=== PATIENT | female | born 1930 | race Caucasian/White ===

== ENCOUNTER 2016-07-26 09:15 | Inpatient (IN) | payer MEDICARE, OTHER ==
[~2016-07-26 09:15] MED LIST: Lactated Ringers 1,000 ML IV SCH; Lidocaine 1%/Sod Bicarbonate in NS 8.4% 1 ML Syringe IV PRN; Morphine 8 MG, EPINEPHrine 0.3 MG, Cefuroxime 750 MG, Ketorolac 30 MG, Sodium Chloride ... ONE; Sodium Chloride 0.9% 10 ML Syringe FLUSH PRN
[2016-12-27] MEDS ORDERED: Sodium Chloride 0.9% 10 ML Syringe FLUSH PRN (00:01)
[2016-12-27] MEDS ORDERED: Lidocaine 1%/Sod Bicarbonate in NS 8.4% 1 ML Syringe IV PRN (00:01)
[2016-12-27] MEDS: Lactated Ringers 1,000 ML IV SCH ×3 (10:01→21:11)
[2016-12-27] MEDS: Bupivacaine 0.25% 30 ML SDV ONE ×2 (10:30→13:46)
[2016-12-27] MEDS: ceFAZolin 1 GM Vial ONE ×2 (10:30→13:40)
[2016-12-27] MEDS: Iodine/Sodium Iodide 2% Tincture 30 ML Bottle ONE ×2 (10:31→13:38)
[2016-12-27] MEDS ORDERED: Propofol 200 MG/20 ML SDV ONE ×2 (10:35→14:04)
[2016-12-27] MEDS ORDERED: Lidocaine 1% 2 ML ONE ×2 (10:37→12:47)
--- NOTE | 2016-12-27 10:48 | PCM.PREANE ---
Preanesthetic Assessment - Procedure Proposed Procedure: Left total knee arthroplasty - Anesthesia/Transfusion/Family Hx Anesthesia History: Prior Anesthesia Without Reaction Type of Anesthesia Reaction: Excessive Nausea/Vomiting (with general anesthetic ) Family History of Anesthesia Reaction: No Transfusion History: No Prior Transfusion(s) Type of Transfusion Reactions: Reports: Unknown Intubation History: Unknown Additional History: Patient has a history of lumbar fusion but had a spinal for her right TKA in 2014 without any complications. - Review of Systems General: No Symptoms Pulmonary: No Symptoms Cardiovascular: Other (HTN, Hyperlipidemia, ) Gastrointestinal: No symptoms Neurological: No Symptoms Other: Reports: None - Physical Assessment NPO Status Date: 12/26/16 NPO Status Time: 23:45 O2 Sat by Pulse Oximetry: 93 Respiratory Rate: 16 Vital Signs: Last Vital Signs Temp 36.4 C 12/27/16 09:50 Pulse 59 L 12/27/16 09:50 Resp 16 12/27/16 09:50 BP 150/45 H 12/27/16 09:50 Pulse Ox 93 L 12/27/16 09:50 Height: 1.57 m Weight: 75.296 kg ASA Class: 3 Mental Status: Alert & Oriented x3 Airway Class: Mallampati = 2 Dentition: Reports: Dentures (upper) Thyro-Mental Finger Breadths: 3 Mouth Opening Finger Breadths: 3 ROM/Head Extension: Full Lungs: Clear to auscultation, Normal respiratory effort Cardiovascular: Regular Rate, Regular Rhythm - Lab Values: Laboratory Last Values MRSA (PCR) Negative 12/17/16 10:51 - Allergies Allergies/Adverse Reactions: Allergies Allergy/AdvReac Type Severity Reaction Status Date / Time sulfamethoxazole Allergy Rash Verified 12/27/16 10:30 [From Bactrim] trimethoprim [From Bactrim] Allergy Rash Verified 12/27/16 10:30 - Blood Blood Available: No Product(s) Available: None - Anesthesia Plan Pre-Op Medication Ordered: None Beta Darion: Atenolol Med Last Dose Date: 12/27/16 Med Last Dose Time: 07:00 - Acknowledgements Anesthesia Type Planned: Spinal (with duramorph) Pt an Appropriate Candidate for the Planned Anesthesia: Yes Alternatives and Risks of Anesthesia Discussed w Pt/Guardian: Yes Pt/Guardian Understands and Agrees with Anesthesia Plan: Yes PreAnesthesia Questionnaire HEENT History: Reports: None Other HEENT History: wears eyeglasses Cardiovascular History: Reports: Bypass (CABG), CAD, High Cholesterol, Hypertension, NE Respiratory History: Reports: None Gastrointestinal History: Reports: GERD, Irritable Bowel Syndrome, PUD Other Gastrointestinal History: perforated ulcer 2010 Genitourinary History: Reports: Retention, Urinary, Urinary Incontinence, UTI, Recurrent Other Genitourinary History: Urinary urgency, nocturia [employer] History: Reports: Musculoskeletal History: Reports: Arthritis, Osteoarthritis Other Musculoskeletal History: Right shoulder pain Neurological History: Reports: CVA Psychiatric History: Reports: None Endocrine/Metabolic History: Reports: Hypothyroidism Hematologic History: Reports: Anemia, Iron Deficiency Immunologic History: Reports: None Oncologic (Cancer) History: Reports: Other (See Below) Other Oncologic History: Skin neoplasm Dermatologic History: Other Dermatologic History: Skin neoplasm - Infectious Disease History Infectious Disease History: Reports: MRSA - Past Surgical History HEENT Surgical History: Reports: Cataract Surgery, Tonsillectomy Cardiovascular Surgical History: Reports: Carotid Endarterectomy, Coronary Artery Bypass Respiratory Surgical History: Reports: None GI Surgical History: Reports: None Female Surgical History: Reports: None Endocrine Surgical History: Reports: None Neurological Surgical History: Reports: None Musculoskeletal Surgical History: Reports: Other (See Below) Other Musculoskeletal Surgeries/Procedures:: Low back surgery Oncologic Surgical History: Reports: None Dermatological Surgical History: Reports: None - SUBSTANCE USE Smoking Status *Q: Never Smoker Second Hand Smoke Exposure: No Recreational Drug Use History: No - HOME MEDS Home Medications: Home Meds Atenolol 25 mg PO DAILY 03/08/14 [History] Calcium Carbonate [Calcium] 1,200 mg PO TID 03/08/14 [History] Glucosamine/Chondroitin Sulf A [Glucosamine Chondroitin Cap] 1 each PO DAILY [History] Irbesartan [Avapro] 150 mg PO DAILY 03/08/14 [History] Levothyroxine Sodium [Synthroid] 112 mcg PO DAILY 03/08/14 [History] Simvastatin [Zocor] 20 mg PO DAILY 03/08/14 [History] amLODIPine [Norvasc] 5 mg PO DAILY 03/08/14 [History] Pantoprazole [ProTONIX] 40 mg PO DAILY 04/04/15 [History] Aspirin [Ecotrin] 81 mg PO DAILY 04/07/15 [History] Ferrous Sulfate [Iron] 325 mg PO DAILY #90 tablet 05/06/15 [Rx] D-Mannose [Mannose] 1 tab PO DAILY 12/24/16 [History] Ibuprofen [Advil] 400 mg PO Q6H PRN 12/24/16 [History] Multivit-Min/FA/Lycopene/Lut [Centrum Silver Tablet] 1 each PO DAILY 12/24/16 [ History] - CURRENT (IN HOUSE) MEDS Current Meds: Current Medications Morphine Sulfate 8 mg/Epinephrine HCl 0.3 mg/Cefuroxime Sodium 750 mg/Ketorolac Tromethamine 30 mg/Sodium Chloride 27.9 ml 0 mg .XX ONETIME ONE Stop: 12/27/16 11:31 Lactated Ringer's (Ringers, Lactated) 1,000 mls @ 125 mls/hr IV ASDIRECTED TIFF Stop: 12/27/16 23:00 Last Admin: 12/27/16 10:01 Dose: 125 mls/hr Vancomycin HCl 1 gm/ Sodium (Chloride) 250 mls @ 250 mls/hr IV ONETIME ONE Stop: 12/27/16 10:59 Last Admin: 12/27/16 10:05 Dose: 250 mls/hr Lidocaine/Sodium Bicarbonate (Buffered Lidocaine 1% In Ns 8.4%) 0.25 ml IV ONETIME PRN PRN Reason: Prior to IV Start Stop: 12/27/16 18:00 Last Admin: 12/27/16 10:01 Dose: 0.25 ml Sodium Chloride (Saline Flush) 10 ml FLUSH ASDIRECTED PRN PRN Reason: Keep Vein Open Stop: 12/27/16 18:00 Discontinued Medications Bupivacaine HCl (Marcaine 0.25%) Confirm Administered Dose 30 ml .ROUTE .STK- MED ONE Stop: 12/27/16 09:53 Last Admin: 12/27/16 10:30 Dose: 30 ml Cefazolin Sodium (Ancef) Confirm Administered Dose 2 gm .ROUTE .STK-MED ONE Stop: 12/27/16 09:53 Last Admin: 12/27/16 10:30 Dose: 2 gm Morphine Sulfate 8 mg/Epinephrine HCl 0.3 mg/Cefuroxime Sodium 750 mg/Ketorolac Tromethamine 30 mg/Sodium Chloride 27.9 ml 0 mg .XX ONETIME ONE Stop: 07/26/16 07:01 Lidocaine HCl (Xylocaine-Mpf 1%) Confirm Administered Dose 2 mls @ as directed .ROUTE .[employer]-MED ONE Stop: 12/27/16 10:38 Iodine (Iodine 2% Mild Tincture) Confirm Administered Dose 30 ml .ROUTE .[employer]- MED ONE Stop: 12/27/16 09:53 Last Admin: 12/27/16 10:31 Dose: 18 ml Propofol (Diprivan 20 Ml) Confirm Administered Dose 200 mg .ROUTE .[employer] app ONE Stop: 12/27/16 10:36 Tranexamic Acid (Cyklokapron) Confirm Administered Dose 1,000 mg .ROUTE .[employer]- MED ONE Stop: 12/27/16 09:53 Last Admin: 12/27/16 10:32 Dose: 1,000 mg
[2016-12-27] MEDS ORDERED: fentaNYL 100 MCG/2 ML SDV ONE (12:58)
[2016-12-27] MEDS ORDERED: Lactated Ringers 1,000 ML ONE (13:07)
[2016-12-27] MEDS ORDERED: Ketamine 500 mg/10 ML MDV ONE (13:13)
[2016-12-27] MEDS: Morphine 8 MG, EPINEPHrine 0.3 MG, Cefuroxime 750 MG, Ketorolac 30 MG, Sodium Chloride ... ONE ×10 (13:19→13:45)
--- NOTE | 2016-12-27 14:43 | PCM.POSTAN ---
POST ANESTHESIA ASSESSMENT - MENTAL STATUS Mental Status: alert - VITAL SIGNS Pulse Rate: 43 SaO2: 95 Resp Rate: 12 Blood Pressure: 131/44 Temperature: 96.8 C - RESPIRATORY Respiratory Status: respiratory rate WNL, airway patent, O2 saturation stable - CARDIOVASCULAR CV Status: pulse rate WNL, blood pressure stable - GASTROINTESTINAL GI Status: no symptoms - PAIN Pain Score: 10 (RN treating pain ongoing ) - POST OP HYDRATION Hydration Status: adequate & stable
[2016-12-27] MEDS ORDERED: Ketorolac 30 MG/ML SDV IVPUSH SCH (14:45)
[2016-12-27] MEDS: fentaNYL 100 MCG/2 ML SDV IVPUSH PRN ×3 (14:53→15:27)
[2016-12-27] MEDS ORDERED: fentaNYL 250 MCG/5 ML SDV ONE (15:07)
[2016-12-27] MEDS ORDERED: Morphine 2 MG/ML Syringe IVPUSH PRN (15:13)
[2016-12-27] MEDS ORDERED: Bisacodyl 5 MG Tab PO PRN (15:13)
[2016-12-27] MEDS ORDERED: Naloxone 0.4 MG/ML SDV IVPUSH PRN (15:13)
[2016-12-27] MEDS ORDERED: Ondansetron 4 MG/2 ML SDV IVPUSH PRN (15:13)
[2016-12-27] MEDS ORDERED: Magnesium Hydroxide 400 MG/5 ML Susp 30 ML Cup PO PRN (15:13)
[2016-12-27] MEDS ORDERED: Acetaminophen/oxyCODONE 325-5 MG Tab PO PRN (15:13)
[2016-12-27] MEDS ORDERED: Sennosides 8.6 MG Tab PO PRN (15:13)
[2016-12-27] MEDS: HYDROmorphone 0.5 MG/0.5 ML Syringe IVPUSH PRN ×2 (15:47→16:14)
[2016-12-27] MEDS ORDERED: cloNIDine 1,000 MCG/10 ML SDV ONE (16:09)
--- NOTE | 2016-12-27 19:07 | PCM.CONSN ---
- General Info Date of Service: 12/27/16 Subjective Update: 86 year old female s/p left total knee arthroplasty, c/o nausea. Required fentanyl 150 mcg post op and multiple pain medications. Hospitalist service has been asked to help manage medical needs. Functional Status: Reports: pain controlled (required over 150 mcg fentanyl and toradol for control), urinating - Review of Systems General: Reports: No Symptoms HEENT: Reports: no symptoms Pulmonary: Reports: no symptoms Cardiovascular: Reports: No Symptoms Gastrointestinal: Reports: Nausea Genitourinary: Reports: no symptoms Musculoskeletal: Reports: no symptoms Skin: Reports: no symptoms Neurological: Reports: No Symptoms Psychiatric: Reports: no symptoms - Patient Data Vitals - most recent: Last Vital Signs Temp 37.0 C 12/27/16 18:30 Pulse 60 12/27/16 18:30 Resp 16 12/27/16 18:30 BP 141/55 H 12/27/16 18:30 Pulse Ox 95 12/27/16 18:30 Weight - most recent: 75.296 kg I&O - last 24 hours: Intake & Output 12/27/16 12/27/16 12/27/16 06:59 14:59 22:59 Intake Total 740 Output Total 200 250 Balance -200 490 Med Orders - Current: Current Medications Hydrocodone Bitart/Acetaminophen ([place] 325-5 Mg) 1 - 2 tab PO Q4H PRN PRN Reason: Pain Amlodipine Besylate (Norvasc) 5 mg PO DAILY TIFF Atenolol (Tenormin) 25 mg PO DAILY TIFF Bisacodyl (Dulcolax) 5 mg PO DAILY PRN PRN Reason: Constipation Calcium Carbonate/Glycine (Tums) 1,000 mg PO TID [facility] Docusate Sodium (Colace) 100 mg PO BID TIFF Famotidine (Pepcid) 20 mg PO Q12HR [facility] Ferrous Sulfate (Ferrous Sulfate) 325 mg PO DAILY [facility] Lactated Ringer's (Ringers, Lactated) 1,000 mls @ 125 mls/hr IV ASDIRECTED [facility] Stop: 12/27/16 23:00 Last Admin: 12/27/16 16:51 Dose: 125 mls/hr Cefazolin Sodium/Dextrose 2 gm (/ Premix) 50 mls @ 100 mls/hr IV Q8H [facility] Stop: 12/28/16 10:29 Vancomycin HCl 1 gm/ Sodium (Chloride) 250 mls @ 250 mls/hr IV Q12H [facility] Stop: 12/28/16 22:59 Levothyroxine Sodium (Levothyroxine) 112 mcg PO ACBRK [facility] Losartan Potassium (Cozaar) 50 mg PO DAILY [facility] Magnesium Hydroxide (Milk Of Magnesia) 30 ml PO BID PRN PRN Reason: Constipation Morphine Sulfate (Morphine) 2 mg IVPUSH Q2H PRN PRN Reason: Breakthrough Pain Multivitamins (Thera) 1 each PO WITHBREAKFAST [facility] Non-Formulary Medication (Chondroitin/Glucosamine) 1 each PO DAILY [facility] Non-Formulary Medication (D-Mannose [Mannose]) 1 tab PO DAILY [facility] Ondansetron HCl (Zofran) 4 mg IVPUSH Q6H PRN PRN Reason: Nausea/Vomiting Pantoprazole Sodium (Protonix) 40 mg PO DAILY@0700 [facility] Rivaroxaban (Xarelto) 10 mg PO DAILY [facility] Senna (Senna) 8.6 mg PO BID PRN PRN Reason: Constipation Simvastatin (Zocor) 20 mg PO DAILY [facility] Vancomycin HCl (Pharmacy To Dose - Vancomycin) 1 dose .XX ASDIRECTED [facility] Stop: 12/29/16 15:16 Discontinued Medications Bupivacaine HCl (Marcaine 0.25%) Confirm Administered Dose 30 ml .ROUTE .STK- MED ONE Stop: 12/27/16 09:53 Last Admin: 12/27/16 13:46 Dose: 30 ml Cefazolin Sodium (Ancef) Confirm Administered Dose 2 gm .ROUTE .STK-MED ONE Stop: 12/27/16 09:53 Last Admin: 12/27/16 13:40 Dose: 2 gm Clonidine HCl (Duraclon) Confirm Administered Dose 1,000 mcg .ROUTE .STK-MED ONE Stop: 12/27/16 16:10 Morphine Sulfate 8 mg/Epinephrine HCl 0.3 mg/Cefuroxime Sodium 750 mg/Ketorolac Tromethamine 30 mg/Sodium Chloride 27.9 ml 0 mg .XX ONETIME ONE Stop: 07/26/16 07:01 Morphine Sulfate 8 mg/Epinephrine HCl 0.3 mg/Cefuroxime Sodium 750 mg/Ketorolac Tromethamine 30 mg/Sodium Chloride 27.9 ml 0 mg .XX ONETIME ONE Stop: 12/27/16 11:31 Last Admin: 12/27/16 13:45 Dose: 788.3 mg Fentanyl (Sublimaze) Confirm Administered Dose 100 mcg .ROUTE .STK-MED ONE Stop: 12/27/16 12:59 Fentanyl (Sublimaze) 50 mcg IVPUSH Q5M PRN PRN Reason: Pain Stop: 12/27/16 18:00 Last Admin: 12/27/16 15:27 Dose: 50 mcg Fentanyl (Sublimaze) Confirm Administered Dose 250 mcg .ROUTE .STK-MED ONE Stop: 12/27/16 15:08 Hydromorphone HCl (Dilaudid) 0.5 mg IVPUSH Q15M PRN PRN Reason: severe pain Stop: 12/27/16 15:56 Last Admin: 12/27/16 16:14 Dose: 0.5 mg Vancomycin HCl 1 gm/ Sodium (Chloride) 250 mls @ 250 mls/hr IV ONETIME ONE Stop: 12/27/16 10:59 Last Admin: 12/27/16 10:05 Dose: 250 mls/hr Lidocaine HCl (Xylocaine-Mpf 1%) Confirm Administered Dose 2 mls @ as directed .ROUTE .STK-MED ONE Stop: 12/27/16 10:38 Lidocaine HCl (Xylocaine-Mpf 1%) Confirm Administered Dose 2 mls @ as directed .ROUTE .STK-MED ONE Stop: 12/27/16 12:48 Lactated Ringer's (Ringers, Lactated) Confirm Administered Dose 1,000 mls @ as directed .ROUTE .STK-MED ONE Stop: 12/27/16 13:08 Acetaminophen (Ofirmev) 100 mls @ 400 mls/hr IV NOW ONE Stop: 12/27/16 15:08 Last Admin: 12/27/16 15:04 Dose: 400 mls/hr Iodine (Iodine 2% Mild Tincture) Confirm Administered Dose 30 ml .ROUTE .STK- MED ONE Stop: 12/27/16 09:53 Last Admin: 12/27/16 13:38 Dose: 18 ml Ketamine HCl (Ketalar) Confirm Administered Dose 500 mg .ROUTE .STK-MED ONE Stop: 12/27/16 13:14 Ketorolac Tromethamine (Toradol) 15 mg IVPUSH ONETIME TIFF Stop: 12/27/16 18:00 Last Admin: 12/27/16 15:35 Dose: 15 mg Lidocaine/Sodium Bicarbonate (Buffered Lidocaine 1% In Ns 8.4%) 0.25 ml IV ONETIME PRN PRN Reason: Prior to IV Start Stop: 12/27/16 18:00 Last Admin: 12/27/16 10:01 Dose: 0.25 ml Naloxone HCl (Narcan) 0.1 mg IVPUSH Q5M PRN PRN Reason: Oversedation Stop: 12/27/16 15:29 Oxycodone/Acetaminophen (Percocet 325-5 Mg) 1 - 2 tab PO Q4H PRN PRN Reason: Pain Propofol (Diprivan 20 Ml) Confirm Administered Dose 200 mg .ROUTE .STK-MED ONE Stop: 12/27/16 10:36 Propofol (Diprivan 20 Ml) Confirm Administered Dose 200 mg .ROUTE .STK-MED ONE Stop: 12/27/16 14:05 Sodium Chloride (Saline Flush) 10 ml FLUSH ASDIRECTED PRN PRN Reason: Keep Vein Open Stop: 12/27/16 18:00 Tranexamic Acid (Cyklokapron) Confirm Administered Dose 1,000 mg .ROUTE .STK- MED ONE Stop: 12/27/16 09:53 Last Admin: 12/27/16 13:48 Dose: 1,000 mg - Exam Quality Assessment: supplemental oxygen, DVT prophylaxis General: sedated Neck: supple, trachea midline Lungs: Normal respiratory effort Abdomen: bowel sounds present, soft, no tenderness, no distension (Female) Exam: Deferred Back Exam: Normal Inspection Extremities: normal pulses Skin: warm Wound/Incisions: dressing dry and intact Neurological: no new focal deficit Consult PN Assessment/Plan POD#: 0 Procedures: Procedures AGENT NOS ASSAY W/OPTIC (08/05/16) ASSAY OF AMYLASE (05/04/15) ASSAY OF CREATININE (02/27/14) ASSAY OF FERRITIN (12/07/16) ASSAY OF IRON (12/07/16) ASSAY OF LIPASE (08/05/16) ASSAY OF PREALBUMIN (07/08/16) ASSAY OF TRANSFERRIN (12/07/16) ASSAY OF TROPONIN QUANT (08/05/16) ASSAY THYROID STIM HORMONE (12/07/16) BLOOD CULTURE FOR BACTERIA (05/04/15) C-REACTIVE PROTEIN (08/05/16) CHEST X-RAY 1 VIEW FRONTAL (03/20/15) CHEST X-RAY 2VW FRONTAL&LATL (07/08/16) COMP SCREEN MAMMOGRAM ADD-ON (08/08/15) COMPLETE CBC AUTOMATED (12/07/16) COMPLETE CBC W/AUTO DIFF WBC (08/05/16) COMPREHEN METABOLIC PANEL (12/07/16) CULTURE AEROBIC IDENTIFY (05/29/14) ELECTROCARDIOGRAM TRACING (08/05/16) EMERGENCY DEPT VISIT (08/05/16) GAIT TRAINING THERAPY (05/04/15) HELICOBACTER PYLORI ANTIBODY (08/05/16) HYDRATE IV INFUSION ADD-ON (08/05/16) INJ FORAMEN EPIDURAL L/S (03/13/14) LEUKOCYTE ASSESSMENT FECAL (08/05/16) MEASURE BLOOD OXYGEN LEVEL (04/07/15) MEASURE BLOOD OXYGEN LEVEL (04/07/15) MEASURE BLOOD OXYGEN LEVEL (04/07/15) METABOLIC PANEL TOTAL CA (04/07/15) MICROBE SUSCEPTIBLE EDWARD (07/08/16) MR-STAPH DNA AMP PROBE (04/07/15) MRI LUMBAR SPINE W/O DYE (02/27/14) MYCOPLASMA ANTIBODY (06/05/14) OCCULT BLD FECES 1-3 TESTS (08/05/16) OCCULT BLOOD FECES (08/05/16) OFFICE/OUTPATIENT VISIT EST (12/05/15) OT EVALUATION (05/04/15) PT EVALUATION (05/04/15) ROUTINE VENIPUNCTURE (12/07/16) SELF CARE MNGMENT TRAINING (04/07/15) STOOL CULTR AEROBIC BACT EA (08/05/16) THER/PROPH/DIAG INJ IV PUSH (08/05/16) THER/PROPH/DIAG IV INF INIT (05/04/15) THERAPEUTIC ACTIVITIES (05/04/15) THERAPEUTIC EXERCISES (05/04/15) THROMBOPLASTIN TIME PARTIAL (04/03/15) TX/PRO/DX INJ NEW DRUG ADDON (05/04/15) URINALYSIS AUTO W/O SCOPE (07/24/15) URINALYSIS AUTO W/SCOPE (12/07/16) URINE BACTERIA CULTURE (07/08/16) URINE CULTURE/COLONY COUNT (12/07/16) US EXAM ABDO BACK WALL COMP (05/04/15) VITAMIN B-12 (05/04/15) VITAMIN D 25 HYDROXY (07/08/16) X-RAY EXAM L-2 SPINE 4/>VWS (08/20/15) X-RAY EXAM OF ABDOMEN (08/05/16) X-RAY EXAM OF FINGER(S) (03/08/16) X-RAY EXAM OF KNEE 1 OR 2 (04/07/15) X-RAY EXAM OF SHOULDER (03/08/16) (1) GERD (gastroesophageal reflux disease) SNOMED Code(s): 564789595 Code(s): K21.9 - GASTRO-ESOPHAGEAL REFLUX DISEASE WITHOUT ESOPHAGITIS Current Visit: Yes (2) Narcotic dependence SNOMED Code(s): 96259042, 15641630 Code(s): F11.20 - OPIOID DEPENDENCE, UNCOMPLICATED Current Visit: Yes (3) History of IBS SNOMED Code(s): 55001915058654 Code(s): Z87.19 - PERSONAL HISTORY OF OTHER DISEASES OF THE DIGESTIVE SYSTEM Current Visit: Yes (4) CVA (cerebral vascular accident) SNOMED Code(s): 560900732 Code(s): I63.9 - CEREBRAL INFARCTION, UNSPECIFIED Current Visit: Yes (5) Myocardial infarction SNOMED Code(s): 62863184 Code(s): I21.3 - ST ELEVATION (STEMI) MYOCARDIAL INFARCTION OF [facility] SITE Current Visit: Yes (6) Anemia SNOMED Code(s): 201214882 Code(s): D64.9 - ANEMIA, UNSPECIFIED Current Visit: No Qualifiers: Anemia type: unspecified type Qualified Code(s): D64.9 - Anemia, unspecified (7) UTI (urinary tract infection) SNOMED Code(s): 59153484 Code(s): N39.0 - URINARY TRACT INFECTION, SITE NOT SPECIFIED Current Visit : No Qualifiers: Urinary tract infection type: acute cystitis Hematuria presence: with hematuria Qualified Code(s): N30.01 - Acute cystitis with hematuria Problem List Initiated/Reviewed/Updated: Yes Plan: Impression: POD 0 left total knee arthroplasty Left LE osetoarthritis Chronic CAD/MIHTN HLD GERD/PUD IBS CVA Plan: Daily labs Home meds Antiemetic Pain mgt DVT/GI prophylaxis SW/PT/OT
[2016-12-27] MEDS ORDERED: hydrALAZINE 20 MG/ML SDV IVPUSH PRN (20:17)
[2016-12-27] MEDS ORDERED: Lactated Ringers 250 ML IV ONE (20:29)
[2016-12-27] MEDS ORDERED: Lactated Ringers 1,000 ML IV SCH (20:30)
[2016-12-27] MEDS: ceFAZolin 2 GM in Premix Bag 1 BAG IV SCH (20:49)
[2016-12-27] MEDS: Famotidine 20 MG Tab PO SCH (20:50)
[2016-12-27] MEDS: Calcium Carbonate 500 MG Tab.Chew PO SCH (20:50)
[2016-12-27] MEDS: Docusate Sodium 100 MG Cap PO SCH (20:51)
[2016-12-27] MEDS: Metoclopramide 10 MG/2 ML SDV IVPUSH SCH (20:52)
[2016-12-27] MEDS ORDERED: amLODIPine 5 MG Tab PO ONE (21:00)
[2016-12-27] MEDS ORDERED: Metoclopramide 10 MG/2 ML SDV IVPUSH SCH (21:00)
[2016-12-27] MEDS ORDERED: Scopolamine 1.5 MG Transdermal Patch TRDERM PRN (21:00)
[2016-12-27] MEDS: Acetaminophen/HYDROcodone 325-5 MG Tab PO PRN (22:02)
[2016-12-28] MEDS: ceFAZolin 2 GM in Premix Bag 1 BAG IV SCH ×2 (02:17→09:11)
[2016-12-28] MEDS: Acetaminophen/HYDROcodone 325-5 MG Tab PO PRN ×3 (02:18→11:32)
[2016-12-28] MEDS: Metoclopramide 10 MG/2 ML SDV IVPUSH SCH ×4 (02:19→21:36)
[2016-12-28] MEDS: Pantoprazole 40 MG Tab.CR PO SCH (06:45)
[2016-12-28] MEDS: Levothyroxine 112 MCG Tab PO SCH (06:45)
[2016-12-28] MEDS: Multivitamins,Therapeutic Tab PO SCH (06:45)
[2016-12-28] MEDS: Lactated Ringers 1,000 ML IV SCH ×2 (07:34→21:46)
[2016-12-28] MEDS ORDERED: Rivaroxaban 10 MG Tab PO SCH (09:00)
--- NOTE | 2016-12-28 09:07 | PCM.CONSN ---
- General Info Date of Service: 12/28/16 Admission Dx/Problem (Free Text): POD #1 Lt TKA Doing well, pain under good control, no nausea. Working with PT/OT. Plans for rehab stay at [facility]. Functional Status: Reports: pain controlled, tolerating diet, ambulating, urinating (armendariz cath removed overnight. ). Denies: new symptoms - Review of Systems General: Reports: No Symptoms HEENT: Reports: no symptoms Pulmonary: Reports: no symptoms Cardiovascular: Reports: No Symptoms Gastrointestinal: Reports: No symptoms Genitourinary: Reports: no symptoms Musculoskeletal: Reports: leg pain Skin: Reports: no symptoms Neurological: Reports: No Symptoms Psychiatric: Reports: no symptoms - Patient Data Vitals - most recent: Last Vital Signs Temp 98.1 F 12/28/16 07:39 Pulse 53 L 12/28/16 07:39 Resp 20 12/28/16 07:39 BP 146/46 H 12/28/16 07:39 Pulse Ox 96 12/28/16 07:39 Weight - most recent: 172 lb 4.8 oz I&O - last 24 hours: Intake & Output 12/27/16 12/28/16 12/28/16 22:59 06:59 14:59 Intake Total 1740 1769 Output Total 250 1000 Balance 1490 769 Lab Results last 24 hrs: Laboratory Results - last 24 hr 12/28/16 12/28/16 Range/Units 06:40 06:40 WBC 11.98 H (3.98-10.04) K/mm3 RBC 3.15 L (3.98-5.22) M/mm3 Hgb 9.9 L (11.2-15.7) gm/L Hct 30.0 L (34.1-44.9) % MCV 95.2 H (79.4-94.8) fl MCH 31.4 (25.6-32.2) pg MCHC 33.0 (32.2-35.5) g/dl RDW Std Deviation 41.9 (36.4-46.3) fL Plt Count 257 (182-369) K/mm3 MPV 10.8 (9.4-12.3) fl Neut % (Auto) 79.7 H (34.0-71.1) % Lymph % (Auto) 10.6 L (19.3-51.7) % Ritchie % (Auto) 9.1 (4.7-12.5) % Eos % (Auto) 0.3 L (0.7-5.8) Baso % (Auto) 0.1 (0.1-1.2) % Neut # (Auto) 9.55 H (1.56-6.13) K/mm3 Lymph # (Auto) 1.27 (1.18-3.74) K/mm3 Ritchie # (Auto) 1.09 H (0.24-0.36) K/mm3 Eos # (Auto) 0.04 (0.04-0.36) K/mm3 Baso # (Auto) 0.01 (0.01-0.08) K/mm3 Sodium 136 (136-145) mEq/L Potassium 3.6 (3.5-5.1) mEq/L Chloride 102 (98-107) mEq/L Carbon Dioxide 23 (21-32) mEq/L Anion Gap 14.6 (5-15) BUN 15 (7-18) mg/dL Creatinine 1.3 H (0.55-1.02) mg/dL Est Cr Clr Drug Dosing 24.57 mL/min Estimated GFR (MDRD) 39 (>60) mL/min BUN/Creatinine Ratio 11.5 L (14-18) Glucose 120 H (83-115) mg/dL Calcium 8.3 L (8.5-10.1) mg/dL Total Bilirubin 0.6 (0.2-1.0) mg/dL AST 22 (15-37) U/L ALT 23 (14-59) U/L Alkaline Phosphatase 46 (46-116) U/L Total Protein 6.2 L (6.4-8.2) g/dl Albumin 3.2 L (3.4-5.0) g/dl Globulin 3.0 gm/dL Albumin/Globulin Ratio 1.1 (1-2) Med Orders - Current: Current Medications Hydrocodone Bitart/Acetaminophen ([place] 325-5 Mg) 1 - 2 tab PO Q4H PRN PRN Reason: Pain Last Admin: 12/28/16 07:32 Dose: 2 tab Amlodipine Besylate (Norvasc) 5 mg PO DAILY TIFF Atenolol (Tenormin) 25 mg PO DAILY TIFF Bisacodyl (Dulcolax) 5 mg PO DAILY PRN PRN Reason: Constipation Calcium Carbonate/Glycine (Tums) 1,000 mg PO TID COUNT INCLUDES THE [facility] Last Admin: 12/27/16 20:50 Dose: 1,000 mg Docusate Sodium (Colace) 100 mg PO BID COUNT INCLUDES THE [facility] Last Admin: 12/27/16 20:51 Dose: 100 mg Enoxaparin Sodium (Lovenox) 30 mg SUBCUT DAILY COUNT INCLUDES THE [facility] Famotidine (Pepcid) 20 mg PO Q12HR COUNT INCLUDES THE [facility] Last Admin: 12/27/16 20:50 Dose: 20 mg Ferrous Sulfate (Ferrous Sulfate) 325 mg PO DAILY COUNT INCLUDES THE [facility] Hydralazine HCl (Apresoline) 20 mg IVPUSH Q6H PRN PRN Reason: Hypertension Cefazolin Sodium/Dextrose 2 gm (/ Premix) 50 mls @ 100 mls/hr IV Q8H COUNT INCLUDES THE [facility] Stop: 12/28/16 10:29 Last Admin: 12/28/16 02:17 Dose: 100 mls/hr Vancomycin HCl 1 gm/ Sodium (Chloride) 250 mls @ 250 mls/hr IV Q12H COUNT INCLUDES THE [facility] Stop: 12/28/16 22:59 Last Admin: 12/27/16 22:07 Dose: 250 mls/hr Lactated Ringer's (Ringers, Lactated) 1,000 mls @ 70 mls/hr IV ASDIRECTED COUNT INCLUDES THE [facility] Last Admin: 12/28/16 07:34 Dose: 70 mls/hr Levothyroxine Sodium (Levothyroxine) 112 mcg PO ACBRK COUNT INCLUDES THE [facility] Last Admin: 12/28/16 06:45 Dose: 112 mcg Losartan Potassium (Cozaar) 50 mg PO DAILY COUNT INCLUDES THE [facility] Magnesium Hydroxide (Milk Of Magnesia) 30 ml PO BID PRN PRN Reason: Constipation Metoclopramide HCl (Reglan) 5 mg IVPUSH Q6H COUNT INCLUDES THE [facility] Last Admin: 12/28/16 02:19 Dose: 5 mg Miscellaneous Information (Remove Patch) 1 ea TRDERM Q72H PRN PRN Reason: removal Morphine Sulfate (Morphine) 2 mg IVPUSH Q2H PRN PRN Reason: Breakthrough Pain Multivitamins (Thera) 1 each PO WITHBREAKFAST COUNT INCLUDES THE [facility] Last Admin: 12/28/16 06:45 Dose: 1 each Ondansetron HCl (Zofran) 4 mg IVPUSH Q6H PRN PRN Reason: Nausea/Vomiting Pantoprazole Sodium (Protonix) 40 mg PO DAILY@0700 COUNT INCLUDES THE [facility] Last Admin: 12/28/16 06:45 Dose: 40 mg Chondroitin/ (Glucosamine Tabs) 0 each PO DAILY COUNT INCLUDES THE [facility] D-Mannose [Mannose] (Tablets) 0 each PO DAILY COUNT INCLUDES THE [facility] Scopolamine (Transderm-Scop) 1.5 mg TRDERM Q72H PRN PRN Reason: Nausea Last Admin: 12/27/16 20:53 Dose: 1.5 mg Senna (Senna) 8.6 mg PO BID PRN PRN Reason: Constipation Simvastatin (Zocor) 20 mg PO DAILY COUNT INCLUDES THE [facility] Vancomycin HCl (Pharmacy To Dose - Vancomycin) 1 dose .XX ASDIRECTED COUNT INCLUDES THE [facility] Stop: 12/29/16 15:16 Discontinued Medications Amlodipine Besylate (Norvasc) 5 mg PO ONETIME ONE Stop: 12/27/16 21:01 Last Admin: 12/27/16 21:03 Dose: 5 mg Bupivacaine HCl (Marcaine 0.25%) Confirm Administered Dose 30 ml .ROUTE .STK- MED ONE Stop: 12/27/16 09:53 Last Admin: 12/27/16 13:46 Dose: 30 ml Cefazolin Sodium (Ancef) Confirm Administered Dose 2 gm .ROUTE .STK-MED ONE Stop: 12/27/16 09:53 Last Admin: 12/27/16 13:40 Dose: 2 gm Clonidine HCl (Duraclon) Confirm Administered Dose 1,000 mcg .ROUTE .STK-MED ONE Stop: 12/27/16 16:10 Morphine Sulfate 8 mg/Epinephrine HCl 0.3 mg/Cefuroxime Sodium 750 mg/Ketorolac Tromethamine 30 mg/Sodium Chloride 27.9 ml 0 mg .XX ONETIME ONE Stop: 07/26/16 07:01 Morphine Sulfate 8 mg/Epinephrine HCl 0.3 mg/Cefuroxime Sodium 750 mg/Ketorolac Tromethamine 30 mg/Sodium Chloride 27.9 ml 0 mg .XX ONETIME ONE Stop: 12/27/16 11:31 Last Admin: 12/27/16 13:45 Dose: 788.3 mg Fentanyl (Sublimaze) Confirm Administered Dose 100 mcg .ROUTE .STK-MED ONE Stop: 12/27/16 12:59 Fentanyl (Sublimaze) 50 mcg IVPUSH Q5M PRN PRN Reason: Pain Stop: 12/27/16 18:00 Last Admin: 12/27/16 15:27 Dose: 50 mcg Fentanyl (Sublimaze) Confirm Administered Dose 250 mcg .ROUTE .STK-MED ONE Stop: 12/27/16 15:08 Hydromorphone HCl (Dilaudid) 0.5 mg IVPUSH Q15M PRN PRN Reason: severe pain Stop: 12/27/16 15:56 Last Admin: 12/27/16 16:14 Dose: 0.5 mg Lactated Ringer's (Ringers, Lactated) 1,000 mls @ 125 mls/hr IV ASDIRECTED TIFF Stop: 12/27/16 23:00 Last Admin: 12/27/16 16:51 Dose: 125 mls/hr Vancomycin HCl 1 gm/ Sodium (Chloride) 250 mls @ 250 mls/hr IV ONETIME ONE Stop: 12/27/16 10:59 Last Admin: 12/27/16 10:05 Dose: 250 mls/hr Lidocaine HCl (Xylocaine-Mpf 1%) Confirm Administered Dose 2 mls @ as directed .ROUTE .STK-MED ONE Stop: 12/27/16 10:38 Lidocaine HCl (Xylocaine-Mpf 1%) Confirm Administered Dose 2 mls @ as directed .ROUTE .STK-MED ONE Stop: 12/27/16 12:48 Lactated Ringer's (Ringers, Lactated) Confirm Administered Dose 1,000 mls @ as directed .ROUTE .STK-MED ONE Stop: 12/27/16 13:08 Acetaminophen (Ofirmev) 100 mls @ 400 mls/hr IV NOW ONE Stop: 12/27/16 15:08 Last Admin: 12/27/16 15:04 Dose: 400 mls/hr Lactated Ringer's (Ringers, Lactated) 250 mls @ 999 mls/hr IV ONETIME ONE Stop: 12/27/16 20:44 Last Admin: 12/27/16 20:49 Dose: 999 mls/hr Iodine (Iodine 2% Mild Tincture) Confirm Administered Dose 30 ml .ROUTE .STK- MED ONE Stop: 12/27/16 09:53 Last Admin: 12/27/16 13:38 Dose: 18 ml Ketamine HCl (Ketalar) Confirm Administered Dose 500 mg .ROUTE .STK-MED ONE Stop: 12/27/16 13:14 Ketorolac Tromethamine (Toradol) 15 mg IVPUSH ONETIME TIFF Stop: 12/27/16 18:00 Last Admin: 12/27/16 15:35 Dose: 15 mg Lidocaine/Sodium Bicarbonate (Buffered Lidocaine 1% In Ns 8.4%) 0.25 ml IV ONETIME PRN PRN Reason: Prior to IV Start Stop: 12/27/16 18:00 Last Admin: 12/27/16 10:01 Dose: 0.25 ml Metoclopramide HCl (Reglan) 10 mg IVPUSH Q6H TIFF Naloxone HCl (Narcan) 0.1 mg IVPUSH Q5M PRN PRN Reason: Oversedation Stop: 12/27/16 15:29 Oxycodone/Acetaminophen (Percocet 325-5 Mg) 1 - 2 tab PO Q4H PRN PRN Reason: Pain Propofol (Diprivan 20 Ml) Confirm Administered Dose 200 mg .ROUTE .STK-MED ONE Stop: 12/27/16 10:36 Propofol (Diprivan 20 Ml) Confirm Administered Dose 200 mg .ROUTE .STK-MED ONE Stop: 12/27/16 14:05 Rivaroxaban (Xarelto) 10 mg PO DAILY COUNT INCLUDES THE [facility] Sodium Chloride (Saline Flush) 10 ml FLUSH ASDIRECTED PRN PRN Reason: Keep Vein Open Stop: 12/27/16 18:00 Terazosin HCl (Hytrin) 2 mg PO ONETIME ONE Stop: 12/27/16 20:58 Last Admin: 12/27/16 21:59 Dose: Not Given Tranexamic Acid (Cyklokapron) Confirm Administered Dose 1,000 mg .ROUTE .STK- MED ONE Stop: 12/27/16 09:53 Last Admin: 12/27/16 13:48 Dose: 1,000 mg - Exam Quality Assessment: DVT prophylaxis General: alert, oriented, cooperative, no acute distress HEENT: Pupils equal, Pupils reactive, EOMI, Mucous membr. moist/pink Neck: supple Lungs: Clear to auscultation, Normal respiratory effort, Decreased breath sounds (bases bilat) Cardiovascular: Regular Rate, Regular Rhythm Abdomen: bowel sounds present, soft, no tenderness, no distension (Female) Exam: Deferred Extremities: no edema, other (teds and scd's bilat) Peripheral Pulses: 1+: Dorsalis Pedis (L), Dorsalis Pedis (R) Wound/Incisions: dressing dry and intact Neurological: no new focal deficit Psy/Mental Status: alert, normal affect, normal mood Consult PN Assessment/Plan POD#: 1 Procedures: Procedures AGENT NOS ASSAY W/OPTIC (08/05/16) ASSAY OF AMYLASE (05/04/15) ASSAY OF CREATININE (02/27/14) ASSAY OF FERRITIN (12/07/16) ASSAY OF IRON (12/07/16) ASSAY OF LIPASE (08/05/16) ASSAY OF PREALBUMIN (07/08/16) ASSAY OF TRANSFERRIN (12/07/16) ASSAY OF TROPONIN QUANT (08/05/16) ASSAY THYROID STIM HORMONE (12/07/16) BLOOD CULTURE FOR BACTERIA (05/04/15) C-REACTIVE PROTEIN (08/05/16) CHEST X-RAY 1 VIEW FRONTAL (03/20/15) CHEST X-RAY 2VW FRONTAL&LATL (07/08/16) COMP SCREEN MAMMOGRAM ADD-ON (08/08/15) COMPLETE CBC AUTOMATED (12/07/16) COMPLETE CBC W/AUTO DIFF WBC (08/05/16) COMPREHEN METABOLIC PANEL (12/07/16) CULTURE AEROBIC IDENTIFY (05/29/14) ELECTROCARDIOGRAM TRACING (08/05/16) EMERGENCY DEPT VISIT (08/05/16) GAIT TRAINING THERAPY (05/04/15) HELICOBACTER PYLORI ANTIBODY (08/05/16) HYDRATE IV INFUSION ADD-ON (08/05/16) INJ FORAMEN EPIDURAL L/S (03/13/14) LEUKOCYTE ASSESSMENT FECAL (08/05/16) MEASURE BLOOD OXYGEN LEVEL (04/07/15) MEASURE BLOOD OXYGEN LEVEL (04/07/15) MEASURE BLOOD OXYGEN LEVEL (04/07/15) METABOLIC PANEL TOTAL CA (04/07/15) MICROBE SUSCEPTIBLE EDWARD (12/07/16) MR-STAPH DNA AMP PROBE (04/07/15) MRI LUMBAR SPINE W/O DYE (02/27/14) MYCOPLASMA ANTIBODY (06/05/14) OCCULT BLD FECES 1-3 TESTS (08/05/16) OCCULT BLOOD FECES (08/05/16) OFFICE/OUTPATIENT VISIT EST (12/07/16) OT EVALUATION (05/04/15) PT EVALUATION (05/04/15) ROUTINE VENIPUNCTURE (12/07/16) SELF CARE MNGMENT TRAINING (04/07/15) STOOL CULTR AEROBIC BACT EA (08/05/16) THER/PROPH/DIAG INJ IV PUSH (08/05/16) THER/PROPH/DIAG IV INF INIT (05/04/15) THERAPEUTIC ACTIVITIES (05/04/15) THERAPEUTIC EXERCISES (05/04/15) THROMBOPLASTIN TIME PARTIAL (04/03/15) TX/PRO/DX INJ NEW DRUG ADDON (05/04/15) URINALYSIS AUTO W/O SCOPE (07/24/15) URINALYSIS AUTO W/SCOPE (12/07/16) URINE BACTERIA CULTURE (12/07/16) URINE CULTURE/COLONY COUNT (12/07/16) US EXAM ABDO BACK WALL COMP (05/04/15) VITAMIN B-12 (05/04/15) VITAMIN D 25 HYDROXY (07/08/16) X-RAY EXAM L-2 SPINE 4/>VWS (08/20/15) X-RAY EXAM OF ABDOMEN (08/05/16) X-RAY EXAM OF FINGER(S) (03/08/16) X-RAY EXAM OF KNEE 1 OR 2 (04/07/15) X-RAY EXAM OF SHOULDER (03/08/16) (1) S/P total knee arthroplasty SNOMED Code(s): 1636020833127, 854748049, 6319452311936 Code(s): Z96.659 - PRESENCE OF UNSPECIFIED ARTIFICIAL KNEE JOINT Priority: High Current Visit: Yes Qualifiers: Laterality: left Qualified Code(s): Z96.652 - Presence of left artificial knee joint (2) Osteoarthritis SNOMED Code(s): 179919937 Code(s): M19.90 - UNSPECIFIED OSTEOARTHRITIS, UNSPECIFIED SITE Current Visit: Yes Qualifiers: Osteoarthritis location: knee Osteoarthritis type: primary Laterality: left Qualified Code(s): M17.12 - Unilateral primary osteoarthritis, left knee (3) Anemia SNOMED Code(s): 241354472 Code(s): D64.9 - ANEMIA, UNSPECIFIED Priority: Medium Current Visit: Yes Qualifiers: Anemia type: unspecified type Qualified Code(s): D64.9 - Anemia, unspecified (4) GERD (gastroesophageal reflux disease) SNOMED Code(s): 829643319 Code(s): K21.9 - GASTRO-ESOPHAGEAL REFLUX DISEASE WITHOUT ESOPHAGITIS Priority: Medium Current Visit: No Qualifiers: Esophagitis presence: esophagitis presence not specified Qualified Code(s) : K21.9 - Gastro-esophageal reflux disease without esophagitis (5) History of IBS SNOMED Code(s): 53515915298826 Code(s): Z87.19 - PERSONAL HISTORY OF OTHER DISEASES OF THE DIGESTIVE SYSTEM Priority: Medium Current Visit: No (6) Hx of myocardial infarction SNOMED Code(s): 087495667 Code(s): I25.2 - OLD MYOCARDIAL INFARCTION Priority: Medium Current Visit : No (7) History of CVA (cerebrovascular accident) SNOMED Code(s): 284609542 Code(s): Z86.73 - PRSNL HX OF TIA (TIA), AND CEREB INFRC W/O RESID DEFICITS Priority: Medium Current Visit: No Problem List Initiated/Reviewed/Updated: Yes My Orders last 24 hours: My Active Orders 12/29/16 05:11 BASIC METABOLIC PANEL,BMP [CHEM] AM CBC WITH AUTO DIFF [HEME] AM Plan: I/P: POD #1; Lt TKA with Dr. Ingram -Pain management and DVT prophylax per Orthopedics -PT/OT -IS/RT -Preop hgb was 11.7; today 9.9- cont to follow with daily labs -Doing well thus far Chronic conditions: GERD HTN HLD OAB Hypothyroidism Hx of chronic UTI- recently treated with abx Hx of CVA Hx of AMI Hx of IBS Other: CM/SW for assist with DC planning- plans DC to [facility] for rehab stay; likely tomorrow. GI prophylax Patient is Full Code status.
--- NOTE | 2016-12-28 09:08 | CR ---
Left knee: AP and lateral views the left knee were obtained. Comparison: No previous left knee exam. Knee prosthesis is seen. Components are aligned. Underlying bony structures are intact. Soft tissue air is noted from the surgical procedure. Impression: 1. Satisfactory radiographic appearance of recently placed left knee prosthesis. Diagnostic code #2
[2016-12-28] MEDS: Docusate Sodium 100 MG Cap PO SCH ×2 (09:12→21:36)
[2016-12-28] MEDS: Calcium Carbonate 500 MG Tab.Chew PO SCH ×3 (09:13→21:36)
[2016-12-28] MEDS: Losartan 25 MG Tab PO SCH (09:13)
[2016-12-28] MEDS: Simvastatin 20 MG Tab PO SCH (09:13)
[2016-12-28] MEDS: Atenolol 25 MG Tab PO SCH (09:14)
[2016-12-28] MEDS: Ferrous Sulfate 325 MG Tab PO SCH (09:15)
[2016-12-28] MEDS: amLODIPine 5 MG Tab PO SCH (09:15)
[2016-12-28] MEDS: Famotidine 20 MG Tab PO SCH (09:15)
[2016-12-28] MEDS: Enoxaparin 30 MG/0.3 ML Syringe SUBCUT SCH (09:16)
[2016-12-28] MEDS: D MANNOSE PO SCH (09:16)
[2016-12-28] MEDS: CHONDROITIN PO SCH (09:16)
[2016-12-28] MEDS: GLUCOSAMINE PO SCH (09:16)
[2016-12-28] MEDS ORDERED: Albuterol 0.042% 1.25 MG/3 ML Neb Soln NEB PRN (09:57)
[2016-12-28] MEDS: Acetaminophen/oxyCODONE 325-5 MG Tab PO PRN ×2 (15:51→21:36)
--- NOTE | 2016-12-28 17:48 | PCM.SURGPN ---
- General Info Date of Service: 12/28/16 POD#: 1 Functional Status: Reports: pain controlled, tolerating diet, ambulating, urinating, incentive spirometry - Review of Systems General: Denies: Fever, Chills Musculoskeletal: Reports: other (The pt reports better pain control today.) - Patient Data Vitals - most recent: Last Vital Signs Temp 97.5 F 12/28/16 15:33 Pulse 52 L 12/28/16 15:33 Resp 16 12/28/16 15:33 BP 135/40 L 12/28/16 15:33 Pulse Ox 98 12/28/16 15:33 Weight - most recent: 172 lb 4.8 oz I&O - last 24 hours: Intake & Output 12/28/16 12/28/16 12/28/16 06:59 14:59 22:59 Intake Total 1769 100 750 Output Total 1000 Balance 769 100 750 Lab Results last 24 hrs: Laboratory Results - last 24 hr 12/28/16 12/28/16 Range/Units 06:40 06:40 WBC 11.98 H (3.98-10.04) K/mm3 RBC 3.15 L (3.98-5.22) M/mm3 Hgb 9.9 L (11.2-15.7) gm/L Hct 30.0 L (34.1-44.9) % MCV 95.2 H (79.4-94.8) fl MCH 31.4 (25.6-32.2) pg MCHC 33.0 (32.2-35.5) g/dl RDW Std Deviation 41.9 (36.4-46.3) fL Plt Count 257 (182-369) K/mm3 MPV 10.8 (9.4-12.3) fl Neut % (Auto) 79.7 H (34.0-71.1) % Lymph % (Auto) 10.6 L (19.3-51.7) % Donley % (Auto) 9.1 (4.7-12.5) % Eos % (Auto) 0.3 L (0.7-5.8) Baso % (Auto) 0.1 (0.1-1.2) % Neut # (Auto) 9.55 H (1.56-6.13) K/mm3 Lymph # (Auto) 1.27 (1.18-3.74) K/mm3 Donley # (Auto) 1.09 H (0.24-0.36) K/mm3 Eos # (Auto) 0.04 (0.04-0.36) K/mm3 Baso # (Auto) 0.01 (0.01-0.08) K/mm3 Sodium 136 (136-145) mEq/L Potassium 3.6 (3.5-5.1) mEq/L Chloride 102 (98-107) mEq/L Carbon Dioxide 23 (21-32) mEq/L Anion Gap 14.6 (5-15) BUN 15 (7-18) mg/dL Creatinine 1.3 H (0.55-1.02) mg/dL Est Cr Clr Drug Dosing 24.57 mL/min Estimated GFR (MDRD) 39 (>60) mL/min BUN/Creatinine Ratio 11.5 L (14-18) Glucose 120 H (83-115) mg/dL Calcium 8.3 L (8.5-10.1) mg/dL Total Bilirubin 0.6 (0.2-1.0) mg/dL AST 22 (15-37) U/L ALT 23 (14-59) U/L Alkaline Phosphatase 46 (46-116) U/L Total Protein 6.2 L (6.4-8.2) g/dl Albumin 3.2 L (3.4-5.0) g/dl Globulin 3.0 gm/dL Albumin/Globulin Ratio 1.1 (1-2) Med Orders - Current: Current Medications Albuterol (Proventil Neb Soln) 1.25 mg NEB Q6HRRT PRN PRN Reason: Shortness of Breath Amlodipine Besylate (Norvasc) 5 mg PO DAILY [facility] Last Admin: 12/28/16 09:15 Dose: 5 mg Atenolol (Tenormin) 25 mg PO DAILY [facility] Last Admin: 12/28/16 09:14 Dose: Not Given Bisacodyl (Dulcolax) 5 mg PO DAILY PRN PRN Reason: Constipation Calcium Carbonate/Glycine (Tums) 1,000 mg PO TID [facility] Last Admin: 12/28/16 15:50 Dose: 1,000 mg Docusate Sodium (Colace) 100 mg PO BID [facility] Last Admin: 12/28/16 09:12 Dose: 100 mg Enoxaparin Sodium (Lovenox) 30 mg SUBCUT DAILY [facility] Last Admin: 12/28/16 09:16 Dose: 30 mg Ferrous Sulfate (Ferrous Sulfate) 325 mg PO DAILY [facility] Last Admin: 12/28/16 09:15 Dose: 325 mg Hydralazine HCl (Apresoline) 20 mg IVPUSH Q6H PRN PRN Reason: Hypertension Vancomycin HCl 1 gm/ Sodium (Chloride) 250 mls @ 250 mls/hr IV Q12H [facility] Stop: 12/28/16 22:59 Last Admin: 12/28/16 09:10 Dose: 250 mls/hr Lactated Ringer's (Ringers, Lactated) 1,000 mls @ 70 mls/hr IV ASDIRECTED [facility] Last Admin: 12/28/16 07:34 Dose: 70 mls/hr Levothyroxine Sodium (Levothyroxine) 112 mcg PO ACBRK [facility] Last Admin: 12/28/16 06:45 Dose: 112 mcg Losartan Potassium (Cozaar) 50 mg PO DAILY [facility] Last Admin: 12/28/16 09:13 Dose: 50 mg Magnesium Hydroxide (Milk Of Magnesia) 30 ml PO BID PRN PRN Reason: Constipation Metoclopramide HCl (Reglan) 5 mg IVPUSH Q6H [facility] Last Admin: 12/28/16 15:50 Dose: 5 mg Miscellaneous Information (Remove Patch) 1 ea TRDERM Q72H PRN PRN Reason: removal Morphine Sulfate (Morphine) 2 mg IVPUSH Q2H PRN PRN Reason: Breakthrough Pain Multivitamins (Thera) 1 each PO WITHBREAKFAST [facility] Last Admin: 12/28/16 06:45 Dose: 1 each Ondansetron HCl (Zofran) 4 mg IVPUSH Q6H PRN PRN Reason: Nausea/Vomiting Oxycodone/Acetaminophen (Percocet 325-5 Mg) 1 - 2 tab PO Q4H PRN PRN Reason: Pain Last Admin: 12/28/16 15:51 Dose: 2 tab Pantoprazole Sodium (Protonix) 40 mg PO DAILY@0700 [facility] Last Admin: 12/28/16 06:45 Dose: 40 mg Chondroitin/ (Glucosamine Tabs) 0 each PO DAILY [facility] Last Admin: 12/28/16 09:16 Dose: Not Given D-Mannose [Mannose] (Tablets) 0 each PO DAILY [facility] Last Admin: 12/28/16 09:16 Dose: Not Given Scopolamine (Transderm-Scop) 1.5 mg TRDERM Q72H PRN PRN Reason: Nausea Last Admin: 12/27/16 20:53 Dose: 1.5 mg Senna (Senna) 8.6 mg PO BID PRN PRN Reason: Constipation Simvastatin (Zocor) 20 mg PO DAILY [facility] Last Admin: 12/28/16 09:13 Dose: 20 mg Vancomycin HCl (Pharmacy To Dose - Vancomycin) 1 dose .XX ASDIRECTED [facility] Stop: 12/29/16 15:16 Discontinued Medications Hydrocodone Bitart/Acetaminophen ([place] 325-5 Mg) 1 - 2 tab PO Q4H PRN PRN Reason: Pain Last Admin: 12/28/16 11:32 Dose: 2 tab Amlodipine Besylate (Norvasc) 5 mg PO ONETIME ONE Stop: 12/27/16 21:01 Last Admin: 12/27/16 21:03 Dose: 5 mg Bupivacaine HCl (Marcaine 0.25%) Confirm Administered Dose 30 ml .ROUTE .STK- MED ONE Stop: 12/27/16 09:53 Last Admin: 12/27/16 13:46 Dose: 30 ml Cefazolin Sodium (Ancef) Confirm Administered Dose 2 gm .ROUTE .STK-MED ONE Stop: 12/27/16 09:53 Last Admin: 12/27/16 13:40 Dose: 2 gm Clonidine HCl (Duraclon) Confirm Administered Dose 1,000 mcg .ROUTE .STK-MED ONE Stop: 12/27/16 16:10 Morphine Sulfate 8 mg/Epinephrine HCl 0.3 mg/Cefuroxime Sodium 750 mg/Ketorolac Tromethamine 30 mg/Sodium Chloride 27.9 ml 0 mg .XX ONETIME ONE Stop: 07/26/16 07:01 Morphine Sulfate 8 mg/Epinephrine HCl 0.3 mg/Cefuroxime Sodium 750 mg/Ketorolac Tromethamine 30 mg/Sodium Chloride 27.9 ml 0 mg .XX ONETIME ONE Stop: 12/27/16 11:31 Last Admin: 12/27/16 13:45 Dose: 788.3 mg Famotidine (Pepcid) 20 mg PO Q12HR [facility] Last Admin: 12/28/16 09:15 Dose: 20 mg Fentanyl (Sublimaze) Confirm Administered Dose 100 mcg .ROUTE .STK-MED ONE Stop: 12/27/16 12:59 Fentanyl (Sublimaze) 50 mcg IVPUSH Q5M PRN PRN Reason: Pain Stop: 12/27/16 18:00 Last Admin: 12/27/16 15:27 Dose: 50 mcg Fentanyl (Sublimaze) Confirm Administered Dose 250 mcg .ROUTE .STK-MED ONE Stop: 12/27/16 15:08 Hydromorphone HCl (Dilaudid) 0.5 mg IVPUSH Q15M PRN PRN Reason: severe pain Stop: 12/27/16 15:56 Last Admin: 12/27/16 16:14 Dose: 0.5 mg Lactated Ringer's (Ringers, Lactated) 1,000 mls @ 125 mls/hr IV ASDIRECTED [facility] Stop: 12/27/16 23:00 Last Admin: 12/27/16 16:51 Dose: 125 mls/hr Vancomycin HCl 1 gm/ Sodium (Chloride) 250 mls @ 250 mls/hr IV ONETIME ONE Stop: 12/27/16 10:59 Last Admin: 12/27/16 10:05 Dose: 250 mls/hr Lidocaine HCl (Xylocaine-Mpf 1%) Confirm Administered Dose 2 mls @ as directed .ROUTE .STK-MED ONE Stop: 12/27/16 10:38 Lidocaine HCl (Xylocaine-Mpf 1%) Confirm Administered Dose 2 mls @ as directed .ROUTE .STK-MED ONE Stop: 12/27/16 12:48 Lactated Ringer's (Ringers, Lactated) Confirm Administered Dose 1,000 mls @ as directed .ROUTE .STK-MED ONE Stop: 12/27/16 13:08 Acetaminophen (Ofirmev) 100 mls @ 400 mls/hr IV NOW ONE Stop: 12/27/16 15:08 Last Admin: 12/27/16 15:04 Dose: 400 mls/hr Cefazolin Sodium/Dextrose 2 gm (/ Premix) 50 mls @ 100 mls/hr IV Q8H TIFF Stop: 12/28/16 10:29 Last Admin: 12/28/16 09:11 Dose: 100 mls/hr Lactated Ringer's (Ringers, Lactated) 250 mls @ 999 mls/hr IV ONETIME ONE Stop: 12/27/16 20:44 Last Admin: 12/27/16 20:49 Dose: 999 mls/hr Iodine (Iodine 2% Mild Tincture) Confirm Administered Dose 30 ml .ROUTE .STK- MED ONE Stop: 12/27/16 09:53 Last Admin: 12/27/16 13:38 Dose: 18 ml Ketamine HCl (Ketalar) Confirm Administered Dose 500 mg .ROUTE .STK-MED ONE Stop: 12/27/16 13:14 Ketorolac Tromethamine (Toradol) 15 mg IVPUSH ONETIME TIFF Stop: 12/27/16 18:00 Last Admin: 12/27/16 15:35 Dose: 15 mg Lidocaine/Sodium Bicarbonate (Buffered Lidocaine 1% In Ns 8.4%) 0.25 ml IV ONETIME PRN PRN Reason: Prior to IV Start Stop: 12/27/16 18:00 Last Admin: 12/27/16 10:01 Dose: 0.25 ml Metoclopramide HCl (Reglan) 10 mg IVPUSH Q6H TIFF Naloxone HCl (Narcan) 0.1 mg IVPUSH Q5M PRN PRN Reason: Oversedation Stop: 12/27/16 15:29 Oxycodone/Acetaminophen (Percocet 325-5 Mg) 1 - 2 tab PO Q4H PRN PRN Reason: Pain Propofol (Diprivan 20 Ml) Confirm Administered Dose 200 mg .ROUTE .STK-MED ONE Stop: 12/27/16 10:36 Propofol (Diprivan 20 Ml) Confirm Administered Dose 200 mg .ROUTE .STK-MED ONE Stop: 12/27/16 14:05 Rivaroxaban (Xarelto) 10 mg PO DAILY TIFF Sodium Chloride (Saline Flush) 10 ml FLUSH ASDIRECTED PRN PRN Reason: Keep Vein Open Stop: 12/27/16 18:00 Terazosin HCl (Hytrin) 2 mg PO ONETIME ONE Stop: 12/27/16 20:58 Last Admin: 12/27/16 21:59 Dose: Not Given Tranexamic Acid (Cyklokapron) Confirm Administered Dose 1,000 mg .ROUTE .STK- MED ONE Stop: 12/27/16 09:53 Last Admin: 12/27/16 13:48 Dose: 1,000 mg - Exam Wound/Incisions: dressing dry and intact Quality Assessment: supplemental oxygen General: alert, cooperative, no acute distress Lungs: Normal respiratory effort Extremities: normal pulses, no calf tenderness, other (NVS intact for BLE. Molly's negative for BLE.) - Problem List Review Problem List Initiated/Reviewed/Updated: Yes - My Orders Last 24 Hours: Active Orders 24 hr Category Date Time Status RT Aerosol Therapy [RC] ASDIRECTED Care 12/28/16 09:57 Active Regular Diet [DIET] Diet 12/27/16 Dinner Active BASIC METABOLIC PANEL,BMP [CHEM] AM Lab 12/29/16 05:11 Ordered CBC WITH AUTO DIFF [HEME] AM Lab 12/29/16 05:11 Ordered Acetaminophen/oxyCODONE [Percocet 325-5 MG] Med 12/28/16 15:00 Active 1 - 2 tab PO Q4H PRN Albuterol [Proventil Neb Soln] Med 12/28/16 09:57 Active 1.25 mg NEB Q6HRRT PRN Atenolol [Tenormin] Med 12/28/16 09:00 Active 25 mg PO DAILY Calcium Carbonate [Tums] Med 12/27/16 21:00 Active 1,000 mg PO TID Docusate Sodium [Colace] Med 12/27/16 21:00 Active 100 mg PO BID Enoxaparin [Lovenox] Med 12/28/16 09:00 Active 30 mg SUBCUT DAILY Ferrous Sulfate Med 12/28/16 09:00 Active 325 mg PO DAILY Lactated Ringers [Ringers, Lactated] 1,000 ml Med 12/27/16 21:15 Active IV ASDIRECTED Levothyroxine Med 12/28/16 06:00 Active 112 mcg PO ACBRK Losartan [Cozaar] Med 12/28/16 09:00 Active 50 mg PO DAILY Metoclopramide [Reglan] Med 12/27/16 21:00 Active 5 mg IVPUSH Q6H Multivitamins,Therapeutic [Thera] Med 12/28/16 07:00 Active 1 each PO WITHBREAKFAST Pantoprazole [ProTONIX] Med 12/28/16 07:00 Active 40 mg PO DAILY@0700 Patient's Own Medication [Ptom] Med 12/28/16 09:00 Active 0 each PO DAILY Patient's Own Medication [Ptom] Med 12/28/16 09:00 Active 0 each PO DAILY Remove Patch Med 12/27/16 20:38 Active 1 ea TRDERM Q72H PRN Scopolamine [Transderm-Scop] Med 12/27/16 21:00 Active 1.5 mg TRDERM Q72H PRN Simvastatin [Zocor] Med 12/28/16 09:00 Active 20 mg PO DAILY Vancomycin [Vancocin] 1 gm Med 12/27/16 22:00 Active Sodium Chloride 0.9% [Normal Saline] 250 ml IV Q12H amLODIPine [Norvasc] Med 12/28/16 09:00 Active 5 mg PO DAILY hydrALAZINE [Apresoline] Med 12/27/16 20:17 Active 20 mg IVPUSH Q6H PRN Medication Orders Albuterol (Proventil Neb Soln) 1.25 mg NEB Q6HRRT PRN PRN Reason: Shortness of Breath Amlodipine Besylate (Norvasc) 5 mg PO DAILY [facility] Last Admin: 12/28/16 09:15 Dose: 5 mg Atenolol (Tenormin) 25 mg PO DAILY [facility] Last Admin: 12/28/16 09:14 Dose: Bisacodyl (Dulcolax) 5 mg PO DAILY PRN PRN Reason: Constipation Calcium Carbonate/Glycine (Tums) 1,000 mg PO TID [facility] Last Admin: 12/28/16 15:50 Dose: 1,000 mg Admin: 12/28/16 09:13 Dose: 1,000 mg Admin: 12/27/16 20:50 Dose: 1,000 mg Docusate Sodium (Colace) 100 mg PO BID [facility] Last Admin: 12/28/16 09:12 Dose: 100 mg Admin: 12/27/16 20:51 Dose: 100 mg Enoxaparin Sodium (Lovenox) 30 mg SUBCUT DAILY [facility] Last Admin: 12/28/16 09:16 Dose: 30 mg Ferrous Sulfate (Ferrous Sulfate) 325 mg PO DAILY [facility] Last Admin: 12/28/16 09:15 Dose: 325 mg Hydralazine HCl (Apresoline) 20 mg IVPUSH Q6H PRN PRN Reason: Hypertension Vancomycin HCl 1 gm/ Sodium (Chloride) 250 mls @ 250 mls/hr IV Q12H [facility] Stop: 12/28/16 22:59 Last Admin: 12/28/16 09:10 Dose: 250 mls/hr Infusion: 12/27/16 23:07 Dose: 250 mls/hr Admin: 12/27/16 22:07 Dose: 250 mls/hr Lactated Ringer's (Ringers, Lactated) 1,000 mls @ 70 mls/hr IV ASDIRECTED [facility] Last Admin: 12/28/16 07:34 Dose: 70 mls/hr Infusion: 12/28/16 07:34 Dose: 70 mls/hr Admin: 12/27/16 21:11 Dose: 70 mls/hr Levothyroxine Sodium (Levothyroxine) 112 mcg PO ACBRK [facility] Last Admin: 12/28/16 06:45 Dose: 112 mcg Losartan Potassium (Cozaar) 50 mg PO DAILY [facility] Last Admin: 12/28/16 09:13 Dose: 50 mg Magnesium Hydroxide (Milk Of Magnesia) 30 ml PO BID PRN PRN Reason: Constipation Metoclopramide HCl (Reglan) 5 mg IVPUSH Q6H [facility] Last Admin: 12/28/16 15:50 Dose: 5 mg Admin: 12/28/16 09:16 Dose: 5 mg Admin: 12/28/16 02:19 Dose: 5 mg Admin: 12/27/16 20:52 Dose: 5 mg Miscellaneous Information (Remove Patch) 1 ea TRDERM Q72H PRN PRN Reason: removal Morphine Sulfate (Morphine) 2 mg IVPUSH Q2H PRN PRN Reason: Breakthrough Pain Multivitamins (Thera) 1 each PO WITHBREAKFAST [facility] Last Admin: 12/28/16 06:45 Dose: 1 each Ondansetron HCl (Zofran) 4 mg IVPUSH Q6H PRN PRN Reason: Nausea/Vomiting Oxycodone/Acetaminophen (Percocet 325-5 Mg) 1 - 2 tab PO Q4H PRN PRN Reason: Pain Last Admin: 12/28/16 15:51 Dose: 2 tab Pantoprazole Sodium (Protonix) 40 mg PO DAILY@0700 [facility] Last Admin: 12/28/16 06:45 Dose: 40 mg Chondroitin/ (Glucosamine Tabs) 0 each PO DAILY [facility] Last Admin: 12/28/16 09:16 Dose: D-Mannose [Mannose] (Tablets) 0 each PO DAILY [facility] Last Admin: 12/28/16 09:16 Dose: Scopolamine (Transderm-Scop) 1.5 mg TRDERM Q72H PRN PRN Reason: Nausea Last Admin: 12/27/16 20:53 Dose: 1.5 mg Senna (Senna) 8.6 mg PO BID PRN PRN Reason: Constipation Simvastatin (Zocor) 20 mg PO DAILY [facility] Last Admin: 12/28/16 09:13 Dose: 20 mg Vancomycin HCl (Pharmacy To Dose - Vancomycin) 1 dose .XX ASDIRECTED [facility] Stop: 12/29/16 15:16 - Assessment Assessment (Free Text/Narrative):: POD#1 - left knee TKA - Plan Plan (Free Text/Narrative):: 1. The pt will remain in Hospital while awaiting NH placement and for continued medical monitoring and therapy. 2. 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 3. Continue with P.T. and O.T. 4. d/c [place] and trial Percocet at this time. 5. Hgb 9.9 today. The pt's case was discussed with Dr. Ingram.
[2016-12-29] MEDS: Lactated Ringers 1,000 ML IV SCH (00:18)
[2016-12-29] MEDS: Acetaminophen/oxyCODONE 325-5 MG Tab PO PRN (03:15)
[2016-12-29] MEDS: Metoclopramide 10 MG/2 ML SDV IVPUSH SCH (03:19)
[2016-12-29] MEDS: Multivitamins,Therapeutic Tab PO SCH (06:37)
[2016-12-29] MEDS: Pantoprazole 40 MG Tab.CR PO SCH (06:37)
[2016-12-29] MEDS: Levothyroxine 112 MCG Tab PO SCH (06:37)
[2016-12-29] MEDS ORDERED: Metoclopramide 10 MG/2 ML SDV IVPUSH PRN (06:59)
[2016-12-29] MEDS: Acetaminophen/HYDROcodone 325-5 MG Tab PO PRN ×2 (07:38→21:25)
--- NOTE | 2016-12-29 07:43 | PCM.SURGPN ---
- General Info Date of Service: 12/29/16 POD#: 2 Functional Status: Reports: pain controlled, tolerating diet, ambulating, urinating - Review of Systems General: Denies: Fever, Chills Musculoskeletal: Reports: other (The pt has been progressing with therapies.) - Patient Data Vitals - most recent: Last Vital Signs Temp 98.4 F 12/29/16 03:26 Pulse 69 12/29/16 03:27 Resp 16 12/29/16 03:26 BP 127/76 12/29/16 03:27 Pulse Ox 96 12/29/16 03:27 Weight - most recent: 176 lb 4.8 oz I&O - last 24 hours: Intake & Output 12/28/16 12/29/16 12/29/16 22:59 06:59 14:59 Intake Total 1250 1184 Output Total 675 Balance 1250 509 Lab Results last 24 hrs: Laboratory Results - last 24 hr 12/28/16 12/29/16 Range/Units 06:40 06:20 WBC 10.63 H (3.98-10.04) K/mm3 RBC 2.92 L (3.98-5.22) M/mm3 Hgb 9.0 L (11.2-15.7) gm/L Hct 27.7 L (34.1-44.9) % MCV 94.9 H (79.4-94.8) fl MCH 30.8 (25.6-32.2) pg MCHC 32.5 (32.2-35.5) g/dl RDW Std Deviation 41.7 (36.4-46.3) fL Plt Count 213 (182-369) K/mm3 MPV 11.2 (9.4-12.3) fl Neut % (Auto) 74.3 H (34.0-71.1) % Lymph % (Auto) 12.7 L (19.3-51.7) % Powell % (Auto) 11.9 (4.7-12.5) % Eos % (Auto) 0.7 (0.7-5.8) Baso % (Auto) 0.2 (0.1-1.2) % Neut # (Auto) 7.90 H (1.56-6.13) K/mm3 Lymph # (Auto) 1.35 (1.18-3.74) K/mm3 Powell # (Auto) 1.27 H (0.24-0.36) K/mm3 Eos # (Auto) 0.07 (0.04-0.36) K/mm3 Baso # (Auto) 0.02 (0.01-0.08) K/mm3 Sodium 136 (136-145) mEq/L Potassium 3.6 (3.5-5.1) mEq/L Chloride 102 (98-107) mEq/L Carbon Dioxide 23 (21-32) mEq/L Anion Gap 14.6 (5-15) BUN 15 (7-18) mg/dL Creatinine 1.3 H (0.55-1.02) mg/dL Est Cr Clr Drug Dosing 24.57 mL/min Estimated GFR (MDRD) 39 (>60) mL/min BUN/Creatinine Ratio 11.5 L (14-18) Glucose 120 H (83-115) mg/dL Calcium 8.3 L (8.5-10.1) mg/dL Total Bilirubin 0.6 (0.2-1.0) mg/dL AST 22 (15-37) U/L ALT 23 (14-59) U/L Alkaline Phosphatase 46 (46-116) U/L Total Protein 6.2 L (6.4-8.2) g/dl Albumin 3.2 L (3.4-5.0) g/dl Globulin 3.0 gm/dL Albumin/Globulin Ratio 1.1 (1-2) Med Orders - Current: Current Medications Hydrocodone Bitart/Acetaminophen ([place] 325-5 Mg) 1 - 2 tab PO Q4H PRN PRN Reason: Pain Last Admin: 12/29/16 07:38 Dose: 2 tab Albuterol (Proventil Neb Soln) 1.25 mg NEB Q6HRRT PRN PRN Reason: Shortness of Breath Amlodipine Besylate (Norvasc) 5 mg PO DAILY [facility] Last Admin: 12/28/16 09:15 Dose: 5 mg Atenolol (Tenormin) 25 mg PO DAILY [facility] Last Admin: 12/28/16 09:14 Dose: Not Given Bisacodyl (Dulcolax) 5 mg PO DAILY PRN PRN Reason: Constipation Calcium Carbonate/Glycine (Tums) 1,000 mg PO TID [facility] Last Admin: 12/28/16 21:36 Dose: 1,000 mg Docusate Sodium (Colace) 100 mg PO BID [facility] Last Admin: 12/28/16 21:36 Dose: 100 mg Enoxaparin Sodium (Lovenox) 30 mg SUBCUT DAILY [facility] Last Admin: 12/28/16 09:16 Dose: 30 mg Ferrous Sulfate (Ferrous Sulfate) 325 mg PO DAILY [facility] Last Admin: 12/28/16 09:15 Dose: 325 mg Hydralazine HCl (Apresoline) 20 mg IVPUSH Q6H PRN PRN Reason: Hypertension Levothyroxine Sodium (Levothyroxine) 112 mcg PO ACBRK [facility] Last Admin: 12/29/16 06:37 Dose: 112 mcg Losartan Potassium (Cozaar) 50 mg PO DAILY [facility] Last Admin: 12/28/16 09:13 Dose: 50 mg Magnesium Hydroxide (Milk Of Magnesia) 30 ml PO BID PRN PRN Reason: Constipation Metoclopramide HCl (Reglan) 5 mg IVPUSH Q6H PRN PRN Reason: Nausea/Vomiting Miscellaneous Information (Remove Patch) 1 ea TRDERM Q72H PRN PRN Reason: removal Morphine Sulfate (Morphine) 2 mg IVPUSH Q2H PRN PRN Reason: Breakthrough Pain Multivitamins (Thera) 1 each PO WITHBREAKFAST [facility] Last Admin: 12/29/16 06:37 Dose: 1 each Ondansetron HCl (Zofran) 4 mg IVPUSH Q6H PRN PRN Reason: Nausea/Vomiting Pantoprazole Sodium (Protonix) 40 mg PO DAILY@0700 [facility] Last Admin: 12/29/16 06:37 Dose: 40 mg Chondroitin/ (Glucosamine Tabs) 0 each PO DAILY [facility] Last Admin: 12/28/16 09:16 Dose: Not Given D-Mannose [Mannose] (Tablets) 0 each PO DAILY [facility] Last Admin: 12/28/16 09:16 Dose: Not Given Scopolamine (Transderm-Scop) 1.5 mg TRDERM Q72H PRN PRN Reason: Nausea Last Admin: 12/27/16 20:53 Dose: 1.5 mg Senna (Senna) 8.6 mg PO BID PRN PRN Reason: Constipation Simvastatin (Zocor) 20 mg PO DAILY [facility] Last Admin: 12/28/16 09:13 Dose: 20 mg Vancomycin HCl (Pharmacy To Dose - Vancomycin) 1 dose .XX ASDIRECTED [facility] Stop: 12/29/16 15:16 Discontinued Medications Hydrocodone Bitart/Acetaminophen ([place] 325-5 Mg) 1 - 2 tab PO Q4H PRN PRN Reason: Pain Last Admin: 12/28/16 11:32 Dose: 2 tab Amlodipine Besylate (Norvasc) 5 mg PO ONETIME ONE Stop: 12/27/16 21:01 Last Admin: 12/27/16 21:03 Dose: 5 mg Bupivacaine HCl (Marcaine 0.25%) Confirm Administered Dose 30 ml .ROUTE .STK- MED ONE Stop: 12/27/16 09:53 Last Admin: 12/27/16 13:46 Dose: 30 ml Cefazolin Sodium (Ancef) Confirm Administered Dose 2 gm .ROUTE .STK-MED ONE Stop: 12/27/16 09:53 Last Admin: 12/27/16 13:40 Dose: 2 gm Clonidine HCl (Duraclon) Confirm Administered Dose 1,000 mcg .ROUTE .STK-MED ONE Stop: 12/27/16 16:10 Morphine Sulfate 8 mg/Epinephrine HCl 0.3 mg/Cefuroxime Sodium 750 mg/Ketorolac Tromethamine 30 mg/Sodium Chloride 27.9 ml 0 mg .XX ONETIME ONE Stop: 07/26/16 07:01 Morphine Sulfate 8 mg/Epinephrine HCl 0.3 mg/Cefuroxime Sodium 750 mg/Ketorolac Tromethamine 30 mg/Sodium Chloride 27.9 ml 0 mg .XX ONETIME ONE Stop: 12/27/16 11:31 Last Admin: 12/27/16 13:45 Dose: 788.3 mg Famotidine (Pepcid) 20 mg PO Q12HR [facility] Last Admin: 12/28/16 09:15 Dose: 20 mg Fentanyl (Sublimaze) Confirm Administered Dose 100 mcg .ROUTE .STK-MED ONE Stop: 12/27/16 12:59 Fentanyl (Sublimaze) 50 mcg IVPUSH Q5M PRN PRN Reason: Pain Stop: 12/27/16 18:00 Last Admin: 12/27/16 15:27 Dose: 50 mcg Fentanyl (Sublimaze) Confirm Administered Dose 250 mcg .ROUTE .STK-MED ONE Stop: 12/27/16 15:08 Hydromorphone HCl (Dilaudid) 0.5 mg IVPUSH Q15M PRN PRN Reason: severe pain Stop: 12/27/16 15:56 Last Admin: 12/27/16 16:14 Dose: 0.5 mg Lactated Ringer's (Ringers, Lactated) 1,000 mls @ 125 mls/hr IV ASDIRECTED [facility] Stop: 12/27/16 23:00 Last Admin: 12/27/16 16:51 Dose: 125 mls/hr Vancomycin HCl 1 gm/ Sodium (Chloride) 250 mls @ 250 mls/hr IV ONETIME ONE Stop: 12/27/16 10:59 Last Admin: 12/27/16 10:05 Dose: 250 mls/hr Lidocaine HCl (Xylocaine-Mpf 1%) Confirm Administered Dose 2 mls @ as directed .ROUTE .STK-MED ONE Stop: 12/27/16 10:38 Lidocaine HCl (Xylocaine-Mpf 1%) Confirm Administered Dose 2 mls @ as directed .ROUTE .STK-MED ONE Stop: 12/27/16 12:48 Lactated Ringer's (Ringers, Lactated) Confirm Administered Dose 1,000 mls @ as directed .ROUTE .STK-MED ONE Stop: 12/27/16 13:08 Acetaminophen (Ofirmev) 100 mls @ 400 mls/hr IV NOW ONE Stop: 12/27/16 15:08 Last Admin: 12/27/16 15:04 Dose: 400 mls/hr Cefazolin Sodium/Dextrose 2 gm (/ Premix) 50 mls @ 100 mls/hr IV Q8H [facility] Stop: 12/28/16 10:29 Last Admin: 12/28/16 09:11 Dose: 100 mls/hr Vancomycin HCl 1 gm/ Sodium (Chloride) 250 mls @ 250 mls/hr IV Q12H [facility] Stop: 12/28/16 22:59 Last Admin: 12/28/16 21:43 Dose: 250 mls/hr Lactated Ringer's (Ringers, Lactated) 250 mls @ 999 mls/hr IV ONETIME ONE Stop: 12/27/16 20:44 Last Admin: 12/27/16 20:49 Dose: 999 mls/hr Lactated Ringer's (Ringers, Lactated) 1,000 mls @ 70 mls/hr IV ASDIRECTED [facility] Last Admin: 12/29/16 00:18 Dose: 70 mls/hr Iodine (Iodine 2% Mild Tincture) Confirm Administered Dose 30 ml .ROUTE .STK- MED ONE Stop: 12/27/16 09:53 Last Admin: 12/27/16 13:38 Dose: 18 ml Ketamine HCl (Ketalar) Confirm Administered Dose 500 mg .ROUTE .STK-MED ONE Stop: 12/27/16 13:14 Ketorolac Tromethamine (Toradol) 15 mg IVPUSH ONETIME TIFF Stop: 12/27/16 18:00 Last Admin: 12/27/16 15:35 Dose: 15 mg Lidocaine/Sodium Bicarbonate (Buffered Lidocaine 1% In Ns 8.4%) 0.25 ml IV ONETIME PRN PRN Reason: Prior to IV Start Stop: 12/27/16 18:00 Last Admin: 12/27/16 10:01 Dose: 0.25 ml Metoclopramide HCl (Reglan) 10 mg IVPUSH Q6H [facility] Metoclopramide HCl (Reglan) 5 mg IVPUSH Q6H [facility] Last Admin: 12/29/16 03:19 Dose: 5 mg Naloxone HCl (Narcan) 0.1 mg IVPUSH Q5M PRN PRN Reason: Oversedation Stop: 12/27/16 15:29 Oxycodone/Acetaminophen (Percocet 325-5 Mg) 1 - 2 tab PO Q4H PRN PRN Reason: Pain Oxycodone/Acetaminophen (Percocet 325-5 Mg) 1 - 2 tab PO Q4H PRN PRN Reason: Pain Last Admin: 12/29/16 03:15 Dose: 2 tab Propofol (Diprivan 20 Ml) Confirm Administered Dose 200 mg .ROUTE .STK-MED ONE Stop: 12/27/16 10:36 Propofol (Diprivan 20 Ml) Confirm Administered Dose 200 mg .ROUTE .STK-MED ONE Stop: 12/27/16 14:05 Rivaroxaban (Xarelto) 10 mg PO DAILY [facility] Sodium Chloride (Saline Flush) 10 ml FLUSH ASDIRECTED PRN PRN Reason: Keep Vein Open Stop: 12/27/16 18:00 Terazosin HCl (Hytrin) 2 mg PO ONETIME ONE Stop: 12/27/16 20:58 Last Admin: 12/27/16 21:59 Dose: Not Given Tranexamic Acid (Cyklokapron) Confirm Administered Dose 1,000 mg .ROUTE .STK- MED ONE Stop: 12/27/16 09:53 Last Admin: 12/27/16 13:48 Dose: 1,000 mg - Exam Wound/Incisions: dressing dry and intact General: alert, cooperative, no acute distress Lungs: Normal respiratory effort Extremities: normal pulses, no calf tenderness (Assistance with SLR required. Molly's negative for LLE.) - Problem List Review Problem List Initiated/Reviewed/Updated: Yes - My Orders Last 24 Hours: Active Orders 24 hr Category Date Time Status RT Aerosol Therapy [RC] ASDIRECTED Care 12/28/16 09:57 Active BASIC METABOLIC PANEL,BMP [CHEM] AM Lab 12/29/16 06:20 Received Acetaminophen/HYDROcodone [[place] 325-5 MG] Med 12/29/16 07:24 Active 1 - 2 tab PO Q4H PRN Albuterol [Proventil Neb Soln] Med 12/28/16 09:57 Active 1.25 mg NEB Q6HRRT PRN Atenolol [Tenormin] Med 12/28/16 09:00 Active 25 mg PO DAILY Enoxaparin [Lovenox] Med 12/28/16 09:00 Active 30 mg SUBCUT DAILY Ferrous Sulfate Med 12/28/16 09:00 Active 325 mg PO DAILY Losartan [Cozaar] Med 12/28/16 09:00 Active 50 mg PO DAILY Metoclopramide [Reglan] Med 12/29/16 06:59 Active 5 mg IVPUSH Q6H PRN Multivitamins,Therapeutic [Thera] Med 12/28/16 07:00 Active 1 each PO WITHBREAKFAST Pantoprazole [ProTONIX] Med 12/28/16 07:00 Active 40 mg PO DAILY@0700 Patient's Own Medication [Ptom] Med 12/28/16 09:00 Active 0 each PO DAILY Patient's Own Medication [Ptom] Med 12/28/16 09:00 Active 0 each PO DAILY Simvastatin [Zocor] Med 12/28/16 09:00 Active 20 mg PO DAILY amLODIPine [Norvasc] Med 12/28/16 09:00 Active 5 mg PO DAILY Medication Orders Hydrocodone Bitart/Acetaminophen ([place] 325-5 Mg) 1 - 2 tab PO Q4H PRN PRN Reason: Pain Last Admin: 12/29/16 07:38 Dose: 2 tab Albuterol (Proventil Neb Soln) 1.25 mg NEB Q6HRRT PRN PRN Reason: Shortness of Breath Amlodipine Besylate (Norvasc) 5 mg PO DAILY [facility] Last Admin: 12/28/16 09:15 Dose: 5 mg Atenolol (Tenormin) 25 mg PO DAILY [facility] Last Admin: 12/28/16 09:14 Dose: Bisacodyl (Dulcolax) 5 mg PO DAILY PRN PRN Reason: Constipation Calcium Carbonate/Glycine (Tums) 1,000 mg PO TID [facility] Last Admin: 12/28/16 21:36 Dose: 1,000 mg Admin: 12/28/16 15:50 Dose: 1,000 mg Admin: 12/28/16 09:13 Dose: 1,000 mg Admin: 12/27/16 20:50 Dose: 1,000 mg Docusate Sodium (Colace) 100 mg PO BID [facility] Last Admin: 12/28/16 21:36 Dose: 100 mg Admin: 12/28/16 09:12 Dose: 100 mg Admin: 12/27/16 20:51 Dose: 100 mg Enoxaparin Sodium (Lovenox) 30 mg SUBCUT DAILY [facility] Last Admin: 12/28/16 09:16 Dose: 30 mg Ferrous Sulfate (Ferrous Sulfate) 325 mg PO DAILY [facility] Last Admin: 12/28/16 09:15 Dose: 325 mg Hydralazine HCl (Apresoline) 20 mg IVPUSH Q6H PRN PRN Reason: Hypertension Levothyroxine Sodium (Levothyroxine) 112 mcg PO ACBRK [facility] Last Admin: 12/29/16 06:37 Dose: 112 mcg Admin: 12/28/16 06:45 Dose: 112 mcg Losartan Potassium (Cozaar) 50 mg PO DAILY [facility] Last Admin: 12/28/16 09:13 Dose: 50 mg Magnesium Hydroxide (Milk Of Magnesia) 30 ml PO BID PRN PRN Reason: Constipation Metoclopramide HCl (Reglan) 5 mg IVPUSH Q6H PRN PRN Reason: Nausea/Vomiting Miscellaneous Information (Remove Patch) 1 ea TRDERM Q72H PRN PRN Reason: removal Morphine Sulfate (Morphine) 2 mg IVPUSH Q2H PRN PRN Reason: Breakthrough Pain Multivitamins (Thera) 1 each PO WITHBREAKFAST [facility] Last Admin: 12/29/16 06:37 Dose: 1 each Admin: 12/28/16 06:45 Dose: 1 each Ondansetron HCl (Zofran) 4 mg IVPUSH Q6H PRN PRN Reason: Nausea/Vomiting Pantoprazole Sodium (Protonix) 40 mg PO DAILY@0700 [facility] Last Admin: 12/29/16 06:37 Dose: 40 mg Admin: 12/28/16 06:45 Dose: 40 mg Chondroitin/ (Glucosamine Tabs) 0 each PO DAILY [facility] Last Admin: 12/28/16 09:16 Dose: D-Mannose [Mannose] (Tablets) 0 each PO DAILY [facility] Last Admin: 12/28/16 09:16 Dose: Scopolamine (Transderm-Scop) 1.5 mg TRDERM Q72H PRN PRN Reason: Nausea Last Admin: 12/27/16 20:53 Dose: 1.5 mg Senna (Senna) 8.6 mg PO BID PRN PRN Reason: Constipation Simvastatin (Zocor) 20 mg PO DAILY [facility] Last Admin: 12/28/16 09:13 Dose: 20 mg Vancomycin HCl (Pharmacy To Dose - Vancomycin) 1 dose .XX ASDIRECTED [facility] Stop: 12/29/16 15:16 - Assessment Assessment (Free Text/Narrative):: POD#2 - left TKA - Plan Plan (Free Text/Narrative):: 1. Medical management per Hospitalist service. 2. The pt will remain in Hospital > 96 hours while awaiting NH placement and for continued monitoring and therapy. 3. [place] for pain management. 4. Lovenox (due to renal status) for VTE prophylaxis. SCDs, TEDs. 5. Discharge to [place] tomorrow. The pt's case was discussed with Dr. Ingram.
--- NOTE | 2016-12-29 08:16 | PCM.PN ---
- General Info Date of Service: 12/29/16 Admission Dx/Problem (Free Text): POD #2 Lt TKA Doing well, pain under good control, no nausea. Working with PT/OT. Plans for rehab stay at [facility] tomorrow. Functional Status: Reports: pain controlled, tolerating diet, ambulating, urinating. Denies: new symptoms - Review of Systems General: Reports: No Symptoms HEENT: Reports: no symptoms Pulmonary: Reports: no symptoms Cardiovascular: Reports: No Symptoms Gastrointestinal: Reports: No symptoms Genitourinary: Reports: no symptoms Musculoskeletal: Reports: leg pain Skin: Reports: no symptoms Neurological: Reports: No Symptoms Psychiatric: Reports: no symptoms - Patient Data Vitals - most recent: Last Vital Signs Temp 98.4 F 12/29/16 03:26 Pulse 69 12/29/16 03:27 Resp 16 12/29/16 03:26 BP 127/76 12/29/16 03:27 Pulse Ox 96 12/29/16 03:27 Weight - most recent: 176 lb 4.8 oz I&O - last 24 hours: Intake & Output 12/28/16 12/29/16 12/29/16 22:59 06:59 14:59 Intake Total 1250 1184 Output Total 675 Balance 1250 509 Lab Results last 24 hrs: Laboratory Results - last 24 hr 12/29/16 12/29/16 Range/Units 06:20 06:20 WBC 10.63 H (3.98-10.04) K/mm3 RBC 2.92 L (3.98-5.22) M/mm3 Hgb 9.0 L (11.2-15.7) gm/L Hct 27.7 L (34.1-44.9) % MCV 94.9 H (79.4-94.8) fl MCH 30.8 (25.6-32.2) pg MCHC 32.5 (32.2-35.5) g/dl RDW Std Deviation 41.7 (36.4-46.3) fL Plt Count 213 (182-369) K/mm3 MPV 11.2 (9.4-12.3) fl Neut % (Auto) 74.3 H (34.0-71.1) % Lymph % (Auto) 12.7 L (19.3-51.7) % [place] % (Auto) 11.9 (4.7-12.5) % Eos % (Auto) 0.7 (0.7-5.8) Baso % (Auto) 0.2 (0.1-1.2) % Neut # (Auto) 7.90 H (1.56-6.13) K/mm3 Lymph # (Auto) 1.35 (1.18-3.74) K/mm3 [place] # (Auto) 1.27 H (0.24-0.36) K/mm3 Eos # (Auto) 0.07 (0.04-0.36) K/mm3 Baso # (Auto) 0.02 (0.01-0.08) K/mm3 Sodium 135 L (136-145) mEq/L Potassium 3.8 (3.5-5.1) mEq/L Chloride 103 (98-107) mEq/L Carbon Dioxide 24 (21-32) mEq/L Anion Gap 11.8 (5-15) BUN 12 (7-18) mg/dL Creatinine 1.1 H (0.55-1.02) mg/dL Est Cr Clr Drug Dosing 29.04 mL/min Estimated GFR (MDRD) 47 (>60) mL/min BUN/Creatinine Ratio 10.9 L (14-18) Glucose 99 (83-115) mg/dL Calcium 8.5 (8.5-10.1) mg/dL Med Orders - Current: Current Medications Hydrocodone Bitart/Acetaminophen ([place] 325-5 Mg) 1 - 2 tab PO Q4H PRN PRN Reason: Pain Last Admin: 12/29/16 07:38 Dose: 2 tab Albuterol (Proventil Neb Soln) 1.25 mg NEB Q6HRRT PRN PRN Reason: Shortness of Breath Amlodipine Besylate (Norvasc) 5 mg PO DAILY [facility] Last Admin: 12/28/16 09:15 Dose: 5 mg Atenolol (Tenormin) 25 mg PO DAILY [facility] Last Admin: 12/28/16 09:14 Dose: Not Given Bisacodyl (Dulcolax) 5 mg PO DAILY PRN PRN Reason: Constipation Calcium Carbonate/Glycine (Tums) 1,000 mg PO TID [facility] Last Admin: 12/28/16 21:36 Dose: 1,000 mg Docusate Sodium (Colace) 100 mg PO BID [facility] Last Admin: 12/28/16 21:36 Dose: 100 mg Enoxaparin Sodium (Lovenox) 30 mg SUBCUT DAILY [facility] Last Admin: 12/28/16 09:16 Dose: 30 mg Ferrous Sulfate (Ferrous Sulfate) 325 mg PO DAILY [facility] Last Admin: 12/28/16 09:15 Dose: 325 mg Hydralazine HCl (Apresoline) 20 mg IVPUSH Q6H PRN PRN Reason: Hypertension Levothyroxine Sodium (Levothyroxine) 112 mcg PO ACBRK [facility] Last Admin: 12/29/16 06:37 Dose: 112 mcg Losartan Potassium (Cozaar) 50 mg PO DAILY [facility] Last Admin: 12/28/16 09:13 Dose: 50 mg Magnesium Hydroxide (Milk Of Magnesia) 30 ml PO BID PRN PRN Reason: Constipation Metoclopramide HCl (Reglan) 5 mg IVPUSH Q6H PRN PRN Reason: Nausea/Vomiting Miscellaneous Information (Remove Patch) 1 ea TRDERM Q72H PRN PRN Reason: removal Morphine Sulfate (Morphine) 2 mg IVPUSH Q2H PRN PRN Reason: Breakthrough Pain Multivitamins (Thera) 1 each PO WITHBREAKFAST [facility] Last Admin: 12/29/16 06:37 Dose: 1 each Ondansetron HCl (Zofran) 4 mg IVPUSH Q6H PRN PRN Reason: Nausea/Vomiting Pantoprazole Sodium (Protonix) 40 mg PO DAILY@0700 [facility] Last Admin: 12/29/16 06:37 Dose: 40 mg Chondroitin/ (Glucosamine Tabs) 0 each PO DAILY [facility] Last Admin: 12/28/16 09:16 Dose: Not Given D-Mannose [Mannose] (Tablets) 0 each PO DAILY [facility] Last Admin: 12/28/16 09:16 Dose: Not Given Scopolamine (Transderm-Scop) 1.5 mg TRDERM Q72H PRN PRN Reason: Nausea Last Admin: 12/27/16 20:53 Dose: 1.5 mg Senna (Senna) 8.6 mg PO BID PRN PRN Reason: Constipation Simvastatin (Zocor) 20 mg PO DAILY [facility] Last Admin: 12/28/16 09:13 Dose: 20 mg Vancomycin HCl (Pharmacy To Dose - Vancomycin) 1 dose .XX ASDIRECTED [facility] Stop: 12/29/16 15:16 Discontinued Medications Hydrocodone Bitart/Acetaminophen ([place] 325-5 Mg) 1 - 2 tab PO Q4H PRN PRN Reason: Pain Last Admin: 12/28/16 11:32 Dose: 2 tab Amlodipine Besylate (Norvasc) 5 mg PO ONETIME ONE Stop: 12/27/16 21:01 Last Admin: 12/27/16 21:03 Dose: 5 mg Bupivacaine HCl (Marcaine 0.25%) Confirm Administered Dose 30 ml .ROUTE .STK- MED ONE Stop: 12/27/16 09:53 Last Admin: 12/27/16 13:46 Dose: 30 ml Cefazolin Sodium (Ancef) Confirm Administered Dose 2 gm .ROUTE .STK-MED ONE Stop: 12/27/16 09:53 Last Admin: 12/27/16 13:40 Dose: 2 gm Clonidine HCl (Duraclon) Confirm Administered Dose 1,000 mcg .ROUTE .STK-MED ONE Stop: 12/27/16 16:10 Morphine Sulfate 8 mg/Epinephrine HCl 0.3 mg/Cefuroxime Sodium 750 mg/Ketorolac Tromethamine 30 mg/Sodium Chloride 27.9 ml 0 mg .XX ONETIME ONE Stop: 07/26/16 07:01 Morphine Sulfate 8 mg/Epinephrine HCl 0.3 mg/Cefuroxime Sodium 750 mg/Ketorolac Tromethamine 30 mg/Sodium Chloride 27.9 ml 0 mg .XX ONETIME ONE Stop: 12/27/16 11:31 Last Admin: 12/27/16 13:45 Dose: 788.3 mg Famotidine (Pepcid) 20 mg PO Q12HR [facility] Last Admin: 12/28/16 09:15 Dose: 20 mg Fentanyl (Sublimaze) Confirm Administered Dose 100 mcg .ROUTE .STK-MED ONE Stop: 12/27/16 12:59 Fentanyl (Sublimaze) 50 mcg IVPUSH Q5M PRN PRN Reason: Pain Stop: 12/27/16 18:00 Last Admin: 12/27/16 15:27 Dose: 50 mcg Fentanyl (Sublimaze) Confirm Administered Dose 250 mcg .ROUTE .STK-MED ONE Stop: 12/27/16 15:08 Hydromorphone HCl (Dilaudid) 0.5 mg IVPUSH Q15M PRN PRN Reason: severe pain Stop: 12/27/16 15:56 Last Admin: 12/27/16 16:14 Dose: 0.5 mg Lactated Ringer's (Ringers, Lactated) 1,000 mls @ 125 mls/hr IV ASDIRECTED [facility] Stop: 12/27/16 23:00 Last Admin: 12/27/16 16:51 Dose: 125 mls/hr Vancomycin HCl 1 gm/ Sodium (Chloride) 250 mls @ 250 mls/hr IV ONETIME ONE Stop: 12/27/16 10:59 Last Admin: 12/27/16 10:05 Dose: 250 mls/hr Lidocaine HCl (Xylocaine-Mpf 1%) Confirm Administered Dose 2 mls @ as directed .ROUTE .STK-MED ONE Stop: 12/27/16 10:38 Lidocaine HCl (Xylocaine-Mpf 1%) Confirm Administered Dose 2 mls @ as directed .ROUTE .STK-MED ONE Stop: 12/27/16 12:48 Lactated Ringer's (Ringers, Lactated) Confirm Administered Dose 1,000 mls @ as directed .ROUTE .STK-MED ONE Stop: 12/27/16 13:08 Acetaminophen (Ofirmev) 100 mls @ 400 mls/hr IV NOW ONE Stop: 12/27/16 15:08 Last Admin: 12/27/16 15:04 Dose: 400 mls/hr Cefazolin Sodium/Dextrose 2 gm (/ Premix) 50 mls @ 100 mls/hr IV Q8H [facility] Stop: 12/28/16 10:29 Last Admin: 12/28/16 09:11 Dose: 100 mls/hr Vancomycin HCl 1 gm/ Sodium (Chloride) 250 mls @ 250 mls/hr IV Q12H [facility] Stop: 12/28/16 22:59 Last Admin: 12/28/16 21:43 Dose: 250 mls/hr Lactated Ringer's (Ringers, Lactated) 250 mls @ 999 mls/hr IV ONETIME ONE Stop: 12/27/16 20:44 Last Admin: 12/27/16 20:49 Dose: 999 mls/hr Lactated Ringer's (Ringers, Lactated) 1,000 mls @ 70 mls/hr IV ASDIRECTED [facility] Last Admin: 12/29/16 00:18 Dose: 70 mls/hr Iodine (Iodine 2% Mild Tincture) Confirm Administered Dose 30 ml .ROUTE .STK- MED ONE Stop: 12/27/16 09:53 Last Admin: 12/27/16 13:38 Dose: 18 ml Ketamine HCl (Ketalar) Confirm Administered Dose 500 mg .ROUTE .STK-MED ONE Stop: 12/27/16 13:14 Ketorolac Tromethamine (Toradol) 15 mg IVPUSH ONETIME TIFF Stop: 12/27/16 18:00 Last Admin: 12/27/16 15:35 Dose: 15 mg Lidocaine/Sodium Bicarbonate (Buffered Lidocaine 1% In Ns 8.4%) 0.25 ml IV ONETIME PRN PRN Reason: Prior to IV Start Stop: 12/27/16 18:00 Last Admin: 12/27/16 10:01 Dose: 0.25 ml Metoclopramide HCl (Reglan) 10 mg IVPUSH Q6H TIFF Metoclopramide HCl (Reglan) 5 mg IVPUSH Q6H TIFF Last Admin: 12/29/16 03:19 Dose: 5 mg Naloxone HCl (Narcan) 0.1 mg IVPUSH Q5M PRN PRN Reason: Oversedation Stop: 12/27/16 15:29 Oxycodone/Acetaminophen (Percocet 325-5 Mg) 1 - 2 tab PO Q4H PRN PRN Reason: Pain Oxycodone/Acetaminophen (Percocet 325-5 Mg) 1 - 2 tab PO Q4H PRN PRN Reason: Pain Last Admin: 12/29/16 03:15 Dose: 2 tab Propofol (Diprivan 20 Ml) Confirm Administered Dose 200 mg .ROUTE .STK-MED ONE Stop: 12/27/16 10:36 Propofol (Diprivan 20 Ml) Confirm Administered Dose 200 mg .ROUTE .STK-MED ONE Stop: 12/27/16 14:05 Rivaroxaban (Xarelto) 10 mg PO DAILY [facility] Sodium Chloride (Saline Flush) 10 ml FLUSH ASDIRECTED PRN PRN Reason: Keep Vein Open Stop: 12/27/16 18:00 Terazosin HCl (Hytrin) 2 mg PO ONETIME ONE Stop: 12/27/16 20:58 Last Admin: 12/27/16 21:59 Dose: Not Given Tranexamic Acid (Cyklokapron) Confirm Administered Dose 1,000 mg .ROUTE .My eShoe- MED ONE Stop: 12/27/16 09:53 Last Admin: 12/27/16 13:48 Dose: 1,000 mg - Exam Quality Assessment: DVT prophylaxis General: alert, oriented, cooperative, no acute distress HEENT: Pupils equal, Pupils reactive, EOMI, Mucous membr. moist/pink Neck: supple Lungs: Clear to auscultation, Normal respiratory effort Cardiovascular: Regular Rate, Regular Rhythm Abdomen: bowel sounds present, soft, no tenderness, no distension (Female) Exam: Deferred Extremities: other (teds bilat) Peripheral Pulses: 2+: Dorsalis Pedis (L), Dorsalis Pedis (R) Wound/Incisions: dressing dry and intact Neurological: no new focal deficit Psy/Mental Status: alert, normal affect, normal mood - Problem List & Annotations (1) S/P total knee arthroplasty SNOMED Code(s): 3288174147577, 785844858, 2210748659274 Code(s): Z96.659 - PRESENCE OF UNSPECIFIED ARTIFICIAL KNEE JOINT Status: Acute Priority: High Current Visit: Yes Qualifiers: Laterality: left Qualified Code(s): Z96.652 - Presence of left artificial knee joint (2) Osteoarthritis SNOMED Code(s): 166199295 Code(s): M19.90 - UNSPECIFIED OSTEOARTHRITIS, UNSPECIFIED SITE Status: Acute Current Visit: Yes Qualifiers: Osteoarthritis location: knee Osteoarthritis type: primary Laterality: left Qualified Code(s): M17.12 - Unilateral primary osteoarthritis, left knee (3) Anemia SNOMED Code(s): 460673324 Code(s): D64.9 - ANEMIA, UNSPECIFIED Status: Acute Priority: Medium Current Visit: Yes Qualifiers: Anemia type: unspecified type Qualified Code(s): D64.9 - Anemia, unspecified (4) GERD (gastroesophageal reflux disease) SNOMED Code(s): 744574773 Code(s): K21.9 - GASTRO-ESOPHAGEAL REFLUX DISEASE WITHOUT ESOPHAGITIS Status: Acute Priority: Medium Current Visit: No Qualifiers: Esophagitis presence: esophagitis presence not specified Qualified Code(s) : K21.9 - Gastro-esophageal reflux disease without esophagitis (5) History of IBS SNOMED Code(s): 28682021857638 Code(s): Z87.19 - PERSONAL HISTORY OF OTHER DISEASES OF THE DIGESTIVE SYSTEM Status: Acute Priority: Medium Current Visit: No (6) Hx of myocardial infarction SNOMED Code(s): 144676048 Code(s): I25.2 - OLD MYOCARDIAL INFARCTION Status: Acute Priority: Medium Current Visit: No (7) History of CVA (cerebrovascular accident) SNOMED Code(s): 236335356 Code(s): Z86.73 - PRSNL HX OF TIA (TIA), AND CEREB INFRC W/O RESID DEFICITS Status: Acute Priority: Medium Current Visit: No - Problem List Review Problem List Initiated/Reviewed/Updated: Yes - My Orders Last 24 Hours: My Active Orders 12/28/16 09:57 RT Aerosol Therapy [RC] ASDIRECTED Albuterol [Proventil Neb Soln] 1.25 mg NEB Q6HRRT PRN 12/29/16 06:59 Metoclopramide [Reglan] 5 mg IVPUSH Q6H PRN - Plan Plan:: I/P: POD #2; Lt TKA with Dr. Ingram -Pain management and DVT prophylax per Orthopedics -PT/OT -IS/RT -Preop hgb was 11.7; today 9.9--> 9.0- cont to follow with daily labs; cont on iron supplement -Doing very well thus far Chronic conditions: GERD HTN HLD OAB Hypothyroidism Hx of chronic UTI- recently treated with abx Hx of CVA Hx of AMI Hx of IBS Other: CM/SW for assist with DC planning- plans DC to [facility] for rehab stay; likely tomorrow. GI prophylax Patient is Full Code status.
[2016-12-29] MEDS: Atenolol 25 MG Tab PO SCH (09:00)
[2016-12-29] MEDS: Calcium Carbonate 500 MG Tab.Chew PO SCH ×3 (09:00→21:25)
[2016-12-29] MEDS: Enoxaparin 30 MG/0.3 ML Syringe SUBCUT SCH (09:00)
[2016-12-29] MEDS: Docusate Sodium 100 MG Cap PO SCH ×2 (09:00→21:25)
[2016-12-29] MEDS: amLODIPine 5 MG Tab PO SCH (09:01)
[2016-12-29] MEDS: Losartan 25 MG Tab PO SCH (09:01)
[2016-12-29] MEDS: Simvastatin 20 MG Tab PO SCH (09:02)
[2016-12-29] MEDS: Ferrous Sulfate 325 MG Tab PO SCH (09:02)
[2016-12-29] MEDS: GLUCOSAMINE PO SCH (09:08)
[2016-12-29] MEDS: CHONDROITIN PO SCH (09:08)
[2016-12-29] MEDS: D MANNOSE PO SCH (09:08)
[2016-12-30] MEDS: Acetaminophen/HYDROcodone 325-5 MG Tab PO PRN ×3 (01:27→09:46)
[2016-12-30] MEDS: Levothyroxine 112 MCG Tab PO SCH (06:29)
[2016-12-30] MEDS: Pantoprazole 40 MG Tab.CR PO SCH (06:29)
[2016-12-30] MEDS: Multivitamins,Therapeutic Tab PO SCH (06:29)
[2016-12-30] MEDS ORDERED: Potassium Chloride 20 MEQ Tab.ER PO ONE (07:18)
--- NOTE | 2016-12-30 07:29 | PCM.CONSN ---
- General Info Date of Service: 12/30/16 Admission Dx/Problem (Free Text): POD #2 Lt TKA Doing well, pain under good control, no nausea. Working with PT/OT. Plans for rehab stay at [place] today. Functional Status: Reports: pain controlled, tolerating diet, ambulating, urinating. Denies: new symptoms - Review of Systems General: Reports: No Symptoms HEENT: Reports: no symptoms Pulmonary: Reports: no symptoms Cardiovascular: Reports: No Symptoms Gastrointestinal: Reports: No symptoms Genitourinary: Reports: no symptoms Musculoskeletal: Reports: leg pain Skin: Reports: no symptoms Neurological: Reports: No Symptoms Psychiatric: Reports: no symptoms - Patient Data Vitals - most recent: Last Vital Signs Temp 97.9 F 12/30/16 03:23 Pulse 63 12/30/16 03:23 Resp 16 12/30/16 03:23 BP 143/65 H 12/30/16 03:23 Pulse Ox 93 L 12/30/16 03:23 Weight - most recent: 174 lb 6.4 oz I&O - last 24 hours: Intake & Output 12/29/16 12/30/16 12/30/16 22:59 06:59 14:59 Intake Total 930 650 Output Total 3 1250 Balance 927 -600 Lab Results last 24 hrs: Laboratory Results - last 24 hr 12/29/16 12/30/16 12/30/16 Range/Units 06:20 06:27 06:27 WBC 10.97 H (3.98-10.04) K/mm3 RBC 3.06 L (3.98-5.22) M/mm3 Hgb 9.6 L (11.2-15.7) gm/L Hct 29.0 L (34.1-44.9) % MCV 94.8 (79.4-94.8) fl MCH 31.4 (25.6-32.2) pg MCHC 33.1 (32.2-35.5) g/dl RDW Std Deviation 41.9 (36.4-46.3) fL Plt Count 250 (182-369) K/mm3 MPV 10.6 (9.4-12.3) fl Neut % (Auto) 62.8 (34.0-71.1) % Lymph % (Auto) 20.7 (19.3-51.7) % [place] % (Auto) 13.5 H (4.7-12.5) % Eos % (Auto) 2.5 (0.7-5.8) Baso % (Auto) 0.2 (0.1-1.2) % Neut # (Auto) 6.90 H (1.56-6.13) K/mm3 Lymph # (Auto) 2.27 (1.18-3.74) K/mm3 [place] # (Auto) 1.48 H (0.24-0.36) K/mm3 Eos # (Auto) 0.27 (0.04-0.36) K/mm3 Baso # (Auto) 0.02 (0.01-0.08) K/mm3 Sodium 135 L 141 (136-145) mEq/L Potassium 3.8 3.2 L (3.5-5.1) mEq/L Chloride 103 106 (98-107) mEq/L Carbon Dioxide 24 23 (21-32) mEq/L Anion Gap 11.8 15.2 H (5-15) BUN 12 11 (7-18) mg/dL Creatinine 1.1 H 1.1 H (0.55-1.02) mg/dL Est Cr Clr Drug Dosing 29.04 29.04 mL/min Estimated GFR (MDRD) 47 47 (>60) mL/min BUN/Creatinine Ratio 10.9 L 10.0 L (14-18) Glucose 99 97 (83-115) mg/dL Calcium 8.5 9.0 (8.5-10.1) mg/dL Med Orders - Current: Current Medications Hydrocodone Bitart/Acetaminophen ([place] 325-5 Mg) 1 - 2 tab PO Q4H PRN PRN Reason: Pain Last Admin: 12/30/16 06:29 Dose: 2 tab Albuterol (Proventil Neb Soln) 1.25 mg NEB Q6HRRT PRN PRN Reason: Shortness of Breath Amlodipine Besylate (Norvasc) 5 mg PO DAILY [facility] Last Admin: 12/29/16 09:01 Dose: 5 mg Atenolol (Tenormin) 25 mg PO DAILY [facility] Last Admin: 12/29/16 09:00 Dose: 25 mg Bisacodyl (Dulcolax) 5 mg PO DAILY PRN PRN Reason: Constipation Last Admin: 12/30/16 06:29 Dose: 5 mg Calcium Carbonate/Glycine (Tums) 1,000 mg PO TID [facility] Last Admin: 12/29/16 21:25 Dose: 1,000 mg Docusate Sodium (Colace) 100 mg PO BID [facility] Last Admin: 12/29/16 21:25 Dose: 100 mg Enoxaparin Sodium (Lovenox) 30 mg SUBCUT DAILY [facility] Last Admin: 12/29/16 09:00 Dose: 30 mg Ferrous Sulfate (Ferrous Sulfate) 325 mg PO DAILY [facility] Last Admin: 12/29/16 09:02 Dose: 325 mg Hydralazine HCl (Apresoline) 20 mg IVPUSH Q6H PRN PRN Reason: Hypertension Levothyroxine Sodium (Levothyroxine) 112 mcg PO ACBRK [facility] Last Admin: 12/30/16 06:29 Dose: 112 mcg Losartan Potassium (Cozaar) 50 mg PO DAILY [facility] Last Admin: 12/29/16 09:01 Dose: 50 mg Magnesium Hydroxide (Milk Of Magnesia) 30 ml PO BID PRN PRN Reason: Constipation Metoclopramide HCl (Reglan) 5 mg IVPUSH Q6H PRN PRN Reason: Nausea/Vomiting Miscellaneous Information (Remove Patch) 1 ea TRDERM Q72H PRN PRN Reason: removal Morphine Sulfate (Morphine) 2 mg IVPUSH Q2H PRN PRN Reason: Breakthrough Pain Multivitamins (Thera) 1 each PO WITHBREAKFAST [facility] Last Admin: 12/30/16 06:29 Dose: 1 each Ondansetron HCl (Zofran) 4 mg IVPUSH Q6H PRN PRN Reason: Nausea/Vomiting Pantoprazole Sodium (Protonix) 40 mg PO DAILY@0700 [facility] Last Admin: 12/30/16 06:29 Dose: 40 mg Chondroitin/ (Glucosamine Tabs) 0 each PO DAILY [facility] Last Admin: 12/29/16 09:08 Dose: Not Given D-Mannose [Mannose] (Tablets) 0 each PO DAILY [facility] Last Admin: 12/29/16 09:08 Dose: Not Given Potassium Chloride (Klor-Con M20) 40 meq PO ONETIME ONE Stop: 12/30/16 07:19 Scopolamine (Transderm-Scop) 1.5 mg TRDERM Q72H PRN PRN Reason: Nausea Last Admin: 12/27/16 20:53 Dose: 1.5 mg Senna (Senna) 8.6 mg PO BID PRN PRN Reason: Constipation Simvastatin (Zocor) 20 mg PO DAILY [facility] Last Admin: 12/29/16 09:02 Dose: 20 mg Discontinued Medications Hydrocodone Bitart/Acetaminophen ([place] 325-5 Mg) 1 - 2 tab PO Q4H PRN PRN Reason: Pain Last Admin: 12/28/16 11:32 Dose: 2 tab Amlodipine Besylate (Norvasc) 5 mg PO ONETIME ONE Stop: 12/27/16 21:01 Last Admin: 12/27/16 21:03 Dose: 5 mg Bupivacaine HCl (Marcaine 0.25%) Confirm Administered Dose 30 ml .ROUTE .STK- MED ONE Stop: 12/27/16 09:53 Last Admin: 12/27/16 13:46 Dose: 30 ml Cefazolin Sodium (Ancef) Confirm Administered Dose 2 gm .ROUTE .STK-MED ONE Stop: 12/27/16 09:53 Last Admin: 12/27/16 13:40 Dose: 2 gm Clonidine HCl (Duraclon) Confirm Administered Dose 1,000 mcg .ROUTE .STK-MED ONE Stop: 12/27/16 16:10 Morphine Sulfate 8 mg/Epinephrine HCl 0.3 mg/Cefuroxime Sodium 750 mg/Ketorolac Tromethamine 30 mg/Sodium Chloride 27.9 ml 0 mg .XX ONETIME ONE Stop: 07/26/16 07:01 Morphine Sulfate 8 mg/Epinephrine HCl 0.3 mg/Cefuroxime Sodium 750 mg/Ketorolac Tromethamine 30 mg/Sodium Chloride 27.9 ml 0 mg .XX ONETIME ONE Stop: 12/27/16 11:31 Last Admin: 12/27/16 13:45 Dose: 788.3 mg Famotidine (Pepcid) 20 mg PO Q12HR TIFF Last Admin: 12/28/16 09:15 Dose: 20 mg Fentanyl (Sublimaze) Confirm Administered Dose 100 mcg .ROUTE .STK-MED ONE Stop: 12/27/16 12:59 Fentanyl (Sublimaze) 50 mcg IVPUSH Q5M PRN PRN Reason: Pain Stop: 12/27/16 18:00 Last Admin: 12/27/16 15:27 Dose: 50 mcg Fentanyl (Sublimaze) Confirm Administered Dose 250 mcg .ROUTE .STK-MED ONE Stop: 12/27/16 15:08 Hydromorphone HCl (Dilaudid) 0.5 mg IVPUSH Q15M PRN PRN Reason: severe pain Stop: 12/27/16 15:56 Last Admin: 12/27/16 16:14 Dose: 0.5 mg Lactated Ringer's (Ringers, Lactated) 1,000 mls @ 125 mls/hr IV ASDIRECTED [facility] Stop: 12/27/16 23:00 Last Admin: 12/27/16 16:51 Dose: 125 mls/hr Vancomycin HCl 1 gm/ Sodium (Chloride) 250 mls @ 250 mls/hr IV ONETIME ONE Stop: 12/27/16 10:59 Last Admin: 12/27/16 10:05 Dose: 250 mls/hr Lidocaine HCl (Xylocaine-Mpf 1%) Confirm Administered Dose 2 mls @ as directed .ROUTE .STK-MED ONE Stop: 12/27/16 10:38 Lidocaine HCl (Xylocaine-Mpf 1%) Confirm Administered Dose 2 mls @ as directed .ROUTE .STK-MED ONE Stop: 12/27/16 12:48 Lactated Ringer's (Ringers, Lactated) Confirm Administered Dose 1,000 mls @ as directed .ROUTE .STK-MED ONE Stop: 12/27/16 13:08 Acetaminophen (Ofirmev) 100 mls @ 400 mls/hr IV NOW ONE Stop: 12/27/16 15:08 Last Admin: 12/27/16 15:04 Dose: 400 mls/hr Cefazolin Sodium/Dextrose 2 gm (/ Premix) 50 mls @ 100 mls/hr IV Q8H [facility] Stop: 12/28/16 10:29 Last Admin: 12/28/16 09:11 Dose: 100 mls/hr Vancomycin HCl 1 gm/ Sodium (Chloride) 250 mls @ 250 mls/hr IV Q12H [facility] Stop: 12/28/16 22:59 Last Admin: 12/28/16 21:43 Dose: 250 mls/hr Lactated Ringer's (Ringers, Lactated) 250 mls @ 999 mls/hr IV ONETIME ONE Stop: 12/27/16 20:44 Last Admin: 12/27/16 20:49 Dose: 999 mls/hr Lactated Ringer's (Ringers, Lactated) 1,000 mls @ 70 mls/hr IV ASDIRECTED TIFF Last Admin: 12/29/16 00:18 Dose: 70 mls/hr Iodine (Iodine 2% Mild Tincture) Confirm Administered Dose 30 ml .ROUTE .STK- MED ONE Stop: 12/27/16 09:53 Last Admin: 12/27/16 13:38 Dose: 18 ml Ketamine HCl (Ketalar) Confirm Administered Dose 500 mg .ROUTE .STK-MED ONE Stop: 12/27/16 13:14 Ketorolac Tromethamine (Toradol) 15 mg IVPUSH ONETIME TIFF Stop: 12/27/16 18:00 Last Admin: 12/27/16 15:35 Dose: 15 mg Lidocaine/Sodium Bicarbonate (Buffered Lidocaine 1% In Ns 8.4%) 0.25 ml IV ONETIME PRN PRN Reason: Prior to IV Start Stop: 12/27/16 18:00 Last Admin: 12/27/16 10:01 Dose: 0.25 ml Metoclopramide HCl (Reglan) 10 mg IVPUSH Q6H TIFF Metoclopramide HCl (Reglan) 5 mg IVPUSH Q6H [facility] Last Admin: 12/29/16 03:19 Dose: 5 mg Naloxone HCl (Narcan) 0.1 mg IVPUSH Q5M PRN PRN Reason: Oversedation Stop: 12/27/16 15:29 Oxycodone/Acetaminophen (Percocet 325-5 Mg) 1 - 2 tab PO Q4H PRN PRN Reason: Pain Oxycodone/Acetaminophen (Percocet 325-5 Mg) 1 - 2 tab PO Q4H PRN PRN Reason: Pain Last Admin: 12/29/16 03:15 Dose: 2 tab Propofol (Diprivan 20 Ml) Confirm Administered Dose 200 mg .ROUTE .STK-MED ONE Stop: 12/27/16 10:36 Propofol (Diprivan 20 Ml) Confirm Administered Dose 200 mg .ROUTE .STK-MED ONE Stop: 12/27/16 14:05 Rivaroxaban (Xarelto) 10 mg PO DAILY [facility] Sodium Chloride (Saline Flush) 10 ml FLUSH ASDIRECTED PRN PRN Reason: Keep Vein Open Stop: 12/27/16 18:00 Terazosin HCl (Hytrin) 2 mg PO ONETIME ONE Stop: 12/27/16 20:58 Last Admin: 12/27/16 21:59 Dose: Not Given Tranexamic Acid (Cyklokapron) Confirm Administered Dose 1,000 mg .ROUTE .STK- MED ONE Stop: 12/27/16 09:53 Last Admin: 12/27/16 13:48 Dose: 1,000 mg Vancomycin HCl (Pharmacy To Dose - Vancomycin) 1 dose .XX ASDIRECTED [facility] Stop: 12/29/16 15:16 - Exam Quality Assessment: DVT prophylaxis General: alert, oriented, cooperative, no acute distress HEENT: Pupils equal, Pupils reactive, EOMI, Mucous membr. moist/pink Neck: supple Lungs: Clear to auscultation, Normal respiratory effort Cardiovascular: Regular Rate, Regular Rhythm Abdomen: bowel sounds present, soft, no tenderness, no distension (Female) Exam: Deferred Extremities: other (teds bilat; SCD's bilat) Wound/Incisions: dressing dry and intact Neurological: no new focal deficit Psy/Mental Status: alert, normal affect, normal mood Consult PN Assessment/Plan POD#: 2 Procedures: Procedures AGENT NOS ASSAY W/OPTIC (08/05/16) ASSAY OF AMYLASE (05/04/15) ASSAY OF CREATININE (02/27/14) ASSAY OF FERRITIN (12/07/16) ASSAY OF IRON (12/07/16) ASSAY OF LIPASE (08/05/16) ASSAY OF PREALBUMIN (07/08/16) ASSAY OF TRANSFERRIN (12/07/16) ASSAY OF TROPONIN QUANT (08/05/16) ASSAY THYROID STIM HORMONE (12/07/16) BLOOD CULTURE FOR BACTERIA (05/04/15) C-REACTIVE PROTEIN (08/05/16) CHEST X-RAY 1 VIEW FRONTAL (03/20/15) CHEST X-RAY 2VW FRONTAL&LATL (07/08/16) COMP SCREEN MAMMOGRAM ADD-ON (08/08/15) COMPLETE CBC AUTOMATED (12/07/16) COMPLETE CBC W/AUTO DIFF WBC (08/05/16) COMPREHEN METABOLIC PANEL (12/07/16) CULTURE AEROBIC IDENTIFY (05/29/14) ELECTROCARDIOGRAM TRACING (08/05/16) EMERGENCY DEPT VISIT (08/05/16) GAIT TRAINING THERAPY (05/04/15) HELICOBACTER PYLORI ANTIBODY (08/05/16) HYDRATE IV INFUSION ADD-ON (08/05/16) INJ FORAMEN EPIDURAL L/S (03/13/14) LEUKOCYTE ASSESSMENT FECAL (08/05/16) MEASURE BLOOD OXYGEN LEVEL (04/07/15) MEASURE BLOOD OXYGEN LEVEL (04/07/15) MEASURE BLOOD OXYGEN LEVEL (04/07/15) METABOLIC PANEL TOTAL CA (04/07/15) MICROBE SUSCEPTIBLE EDWARD (12/07/16) MR-STAPH DNA AMP PROBE (04/07/15) MRI LUMBAR SPINE W/O DYE (02/27/14) MYCOPLASMA ANTIBODY (06/05/14) OCCULT BLD FECES 1-3 TESTS (08/05/16) OCCULT BLOOD FECES (08/05/16) OFFICE/OUTPATIENT VISIT EST (12/07/16) OT EVALUATION (05/04/15) PT EVALUATION (05/04/15) ROUTINE VENIPUNCTURE (12/07/16) SELF CARE MNGMENT TRAINING (04/07/15) STOOL CULTR AEROBIC BACT EA (08/05/16) THER/PROPH/DIAG INJ IV PUSH (08/05/16) THER/PROPH/DIAG IV INF INIT (05/04/15) THERAPEUTIC ACTIVITIES (05/04/15) THERAPEUTIC EXERCISES (05/04/15) THROMBOPLASTIN TIME PARTIAL (04/03/15) TX/PRO/DX INJ NEW DRUG ADDON (05/04/15) URINALYSIS AUTO W/O SCOPE (07/24/15) URINALYSIS AUTO W/SCOPE (12/07/16) URINE BACTERIA CULTURE (12/07/16) URINE CULTURE/COLONY COUNT (12/07/16) US EXAM ABDO BACK WALL COMP (05/04/15) VITAMIN B-12 (05/04/15) VITAMIN D 25 HYDROXY (07/08/16) X-RAY EXAM L-2 SPINE 4/>VWS (08/20/15) X-RAY EXAM OF ABDOMEN (08/05/16) X-RAY EXAM OF FINGER(S) (03/08/16) X-RAY EXAM OF KNEE 1 OR 2 (04/07/15) X-RAY EXAM OF SHOULDER (03/08/16) (1) S/P total knee arthroplasty SNOMED Code(s): 8121804828136, 332112955, 4423282997479 Code(s): Z96.659 - PRESENCE OF UNSPECIFIED ARTIFICIAL KNEE JOINT Priority: High Current Visit: Yes Qualifiers: Laterality: left Qualified Code(s): Z96.652 - Presence of left artificial knee joint (2) Osteoarthritis SNOMED Code(s): 592634763 Code(s): M19.90 - UNSPECIFIED OSTEOARTHRITIS, UNSPECIFIED SITE Current Visit: Yes Qualifiers: Osteoarthritis location: knee Osteoarthritis type: primary Laterality: left Qualified Code(s): M17.12 - Unilateral primary osteoarthritis, left knee (3) Anemia SNOMED Code(s): 098800865 Code(s): D64.9 - ANEMIA, UNSPECIFIED Priority: Medium Current Visit: Yes Qualifiers: Anemia type: unspecified type Qualified Code(s): D64.9 - Anemia, unspecified (4) GERD (gastroesophageal reflux disease) SNOMED Code(s): 974782414 Code(s): K21.9 - GASTRO-ESOPHAGEAL REFLUX DISEASE WITHOUT ESOPHAGITIS Priority: Medium Current Visit: No Qualifiers: Esophagitis presence: esophagitis presence not specified Qualified Code(s) : K21.9 - Gastro-esophageal reflux disease without esophagitis (5) History of IBS SNOMED Code(s): 43169301738106 Code(s): Z87.19 - PERSONAL HISTORY OF OTHER DISEASES OF THE DIGESTIVE SYSTEM Priority: Medium Current Visit: No (6) Hx of myocardial infarction SNOMED Code(s): 976517932 Code(s): I25.2 - OLD MYOCARDIAL INFARCTION Priority: Medium Current Visit : No (7) History of CVA (cerebrovascular accident) SNOMED Code(s): 807820358 Code(s): Z86.73 - PRSNL HX OF TIA (TIA), AND CEREB INFRC W/O RESID DEFICITS Priority: Medium Current Visit: No Problem List Initiated/Reviewed/Updated: Yes My Orders last 24 hours: My Active Orders 12/29/16 06:59 Metoclopramide [Reglan] 5 mg IVPUSH Q6H PRN 12/30/16 07:18 Potassium Chloride [Klor-Con M20] 40 meq PO ONETIME ONE 12/30/16 07:23 Ready for Discharge [RC] PER UNIT ROUTINE Plan: I/P: POD #2; Lt TKA with Dr. Ingram -Pain management and DVT prophylax per Orthopedics -PT/OT -IS/RT -Preop hgb was 11.7-->9.9-->9.0---9.6 today -Doing well Chronic conditions: GERD HTN HLD OAB Hypothyroidism Hx of chronic UTI- recently treated with abx Hx of CVA Hx of AMI Hx of IBS Hx of PUD with perforation in the past- will dc with lovenox for DVT prophylax as discussed with Orthopedics with f/up with Ortho in 2 weeks. Other: CM/SW for assist with DC planning- plans DC to [facility] for rehab stay today ; medically stable for dc today. GI prophylax Patient is Full Code status.
--- NOTE | 2016-12-30 07:58 | PCM.SURGPN ---
- General Info Date of Service: 12/30/16 POD#: 3 Functional Status: Reports: pain controlled, tolerating diet, ambulating, urinating, other (The pt states she feels prepared for discharge to [place].). Denies: new symptoms - Review of Systems General: Denies: Fever, Chills - Patient Data Vitals - most recent: Last Vital Signs Temp 97.9 F 12/30/16 03:23 Pulse 63 12/30/16 03:23 Resp 16 12/30/16 03:23 BP 143/65 H 12/30/16 03:23 Pulse Ox 93 L 12/30/16 03:23 Weight - most recent: 174 lb 6.4 oz I&O - last 24 hours: Intake & Output 12/29/16 12/30/16 12/30/16 22:59 06:59 14:59 Intake Total 930 650 Output Total 3 1250 Balance 927 -600 Lab Results last 24 hrs: Laboratory Results - last 24 hr 12/29/16 12/30/16 12/30/16 Range/Units 06:20 06:27 06:27 WBC 10.97 H (3.98-10.04) K/mm3 RBC 3.06 L (3.98-5.22) M/mm3 Hgb 9.6 L (11.2-15.7) gm/L Hct 29.0 L (34.1-44.9) % MCV 94.8 (79.4-94.8) fl MCH 31.4 (25.6-32.2) pg MCHC 33.1 (32.2-35.5) g/dl RDW Std Deviation 41.9 (36.4-46.3) fL Plt Count 250 (182-369) K/mm3 MPV 10.6 (9.4-12.3) fl Neut % (Auto) 62.8 (34.0-71.1) % Lymph % (Auto) 20.7 (19.3-51.7) % [place] % (Auto) 13.5 H (4.7-12.5) % Eos % (Auto) 2.5 (0.7-5.8) Baso % (Auto) 0.2 (0.1-1.2) % Neut # (Auto) 6.90 H (1.56-6.13) K/mm3 Lymph # (Auto) 2.27 (1.18-3.74) K/mm3 [place] # (Auto) 1.48 H (0.24-0.36) K/mm3 Eos # (Auto) 0.27 (0.04-0.36) K/mm3 Baso # (Auto) 0.02 (0.01-0.08) K/mm3 Sodium 135 L 141 (136-145) mEq/L Potassium 3.8 3.2 L (3.5-5.1) mEq/L Chloride 103 106 (98-107) mEq/L Carbon Dioxide 24 23 (21-32) mEq/L Anion Gap 11.8 15.2 H (5-15) BUN 12 11 (7-18) mg/dL Creatinine 1.1 H 1.1 H (0.55-1.02) mg/dL Est Cr Clr Drug Dosing 29.04 29.04 mL/min Estimated GFR (MDRD) 47 47 (>60) mL/min BUN/Creatinine Ratio 10.9 L 10.0 L (14-18) Glucose 99 97 (83-115) mg/dL Calcium 8.5 9.0 (8.5-10.1) mg/dL Med Orders - Current: Current Medications Hydrocodone Bitart/Acetaminophen ([place] 325-5 Mg) 1 - 2 tab PO Q4H PRN PRN Reason: Pain Last Admin: 12/30/16 06:29 Dose: 2 tab Albuterol (Proventil Neb Soln) 1.25 mg NEB Q6HRRT PRN PRN Reason: Shortness of Breath Amlodipine Besylate (Norvasc) 5 mg PO DAILY [facility] Last Admin: 12/29/16 09:01 Dose: 5 mg Atenolol (Tenormin) 25 mg PO DAILY [facility] Last Admin: 12/29/16 09:00 Dose: 25 mg Bisacodyl (Dulcolax) 5 mg PO DAILY PRN PRN Reason: Constipation Last Admin: 12/30/16 06:29 Dose: 5 mg Calcium Carbonate/Glycine (Tums) 1,000 mg PO TID [facility] Last Admin: 12/29/16 21:25 Dose: 1,000 mg Docusate Sodium (Colace) 100 mg PO BID [facility] Last Admin: 12/29/16 21:25 Dose: 100 mg Enoxaparin Sodium (Lovenox) 30 mg SUBCUT DAILY [facility] Last Admin: 12/29/16 09:00 Dose: 30 mg Ferrous Sulfate (Ferrous Sulfate) 325 mg PO DAILY [facility] Last Admin: 12/29/16 09:02 Dose: 325 mg Hydralazine HCl (Apresoline) 20 mg IVPUSH Q6H PRN PRN Reason: Hypertension Levothyroxine Sodium (Levothyroxine) 112 mcg PO ACBRK [facility] Last Admin: 12/30/16 06:29 Dose: 112 mcg Losartan Potassium (Cozaar) 50 mg PO DAILY [facility] Last Admin: 12/29/16 09:01 Dose: 50 mg Magnesium Hydroxide (Milk Of Magnesia) 30 ml PO BID PRN PRN Reason: Constipation Metoclopramide HCl (Reglan) 5 mg IVPUSH Q6H PRN PRN Reason: Nausea/Vomiting Miscellaneous Information (Remove Patch) 1 ea TRDERM Q72H PRN PRN Reason: removal Morphine Sulfate (Morphine) 2 mg IVPUSH Q2H PRN PRN Reason: Breakthrough Pain Multivitamins (Thera) 1 each PO WITHBREAKFAST [facility] Last Admin: 12/30/16 06:29 Dose: 1 each Ondansetron HCl (Zofran) 4 mg IVPUSH Q6H PRN PRN Reason: Nausea/Vomiting Pantoprazole Sodium (Protonix) 40 mg PO DAILY@0700 [facility] Last Admin: 12/30/16 06:29 Dose: 40 mg Chondroitin/ (Glucosamine Tabs) 0 each PO DAILY [facility] Last Admin: 12/29/16 09:08 Dose: Not Given D-Mannose [Mannose] (Tablets) 0 each PO DAILY [facility] Last Admin: 12/29/16 09:08 Dose: Not Given Scopolamine (Transderm-Scop) 1.5 mg TRDERM Q72H PRN PRN Reason: Nausea Last Admin: 12/27/16 20:53 Dose: 1.5 mg Senna (Senna) 8.6 mg PO BID PRN PRN Reason: Constipation Simvastatin (Zocor) 20 mg PO DAILY [facility] Last Admin: 12/29/16 09:02 Dose: 20 mg Discontinued Medications Hydrocodone Bitart/Acetaminophen ([place] 325-5 Mg) 1 - 2 tab PO Q4H PRN PRN Reason: Pain Last Admin: 12/28/16 11:32 Dose: 2 tab Amlodipine Besylate (Norvasc) 5 mg PO ONETIME ONE Stop: 12/27/16 21:01 Last Admin: 12/27/16 21:03 Dose: 5 mg Bupivacaine HCl (Marcaine 0.25%) Confirm Administered Dose 30 ml .ROUTE .STK- MED ONE Stop: 12/27/16 09:53 Last Admin: 12/27/16 13:46 Dose: 30 ml Cefazolin Sodium (Ancef) Confirm Administered Dose 2 gm .ROUTE .STK-MED ONE Stop: 12/27/16 09:53 Last Admin: 12/27/16 13:40 Dose: 2 gm Clonidine HCl (Duraclon) Confirm Administered Dose 1,000 mcg .ROUTE .STK-MED ONE Stop: 12/27/16 16:10 Morphine Sulfate 8 mg/Epinephrine HCl 0.3 mg/Cefuroxime Sodium 750 mg/Ketorolac Tromethamine 30 mg/Sodium Chloride 27.9 ml 0 mg .XX ONETIME ONE Stop: 07/26/16 07:01 Morphine Sulfate 8 mg/Epinephrine HCl 0.3 mg/Cefuroxime Sodium 750 mg/Ketorolac Tromethamine 30 mg/Sodium Chloride 27.9 ml 0 mg .XX ONETIME ONE Stop: 12/27/16 11:31 Last Admin: 12/27/16 13:45 Dose: 788.3 mg Famotidine (Pepcid) 20 mg PO Q12HR TIFF Last Admin: 12/28/16 09:15 Dose: 20 mg Fentanyl (Sublimaze) Confirm Administered Dose 100 mcg .ROUTE .STK-MED ONE Stop: 12/27/16 12:59 Fentanyl (Sublimaze) 50 mcg IVPUSH Q5M PRN PRN Reason: Pain Stop: 12/27/16 18:00 Last Admin: 12/27/16 15:27 Dose: 50 mcg Fentanyl (Sublimaze) Confirm Administered Dose 250 mcg .ROUTE .STK-MED ONE Stop: 12/27/16 15:08 Hydromorphone HCl (Dilaudid) 0.5 mg IVPUSH Q15M PRN PRN Reason: severe pain Stop: 12/27/16 15:56 Last Admin: 12/27/16 16:14 Dose: 0.5 mg Lactated Ringer's (Ringers, Lactated) 1,000 mls @ 125 mls/hr IV ASDIRECTED [facility] Stop: 12/27/16 23:00 Last Admin: 12/27/16 16:51 Dose: 125 mls/hr Vancomycin HCl 1 gm/ Sodium (Chloride) 250 mls @ 250 mls/hr IV ONETIME ONE Stop: 12/27/16 10:59 Last Admin: 12/27/16 10:05 Dose: 250 mls/hr Lidocaine HCl (Xylocaine-Mpf 1%) Confirm Administered Dose 2 mls @ as directed .ROUTE .STK-MED ONE Stop: 12/27/16 10:38 Lidocaine HCl (Xylocaine-Mpf 1%) Confirm Administered Dose 2 mls @ as directed .ROUTE .STK-MED ONE Stop: 12/27/16 12:48 Lactated Ringer's (Ringers, Lactated) Confirm Administered Dose 1,000 mls @ as directed .ROUTE .STK-MED ONE Stop: 12/27/16 13:08 Acetaminophen (Ofirmev) 100 mls @ 400 mls/hr IV NOW ONE Stop: 12/27/16 15:08 Last Admin: 12/27/16 15:04 Dose: 400 mls/hr Cefazolin Sodium/Dextrose 2 gm (/ Premix) 50 mls @ 100 mls/hr IV Q8H [facility] Stop: 12/28/16 10:29 Last Admin: 12/28/16 09:11 Dose: 100 mls/hr Vancomycin HCl 1 gm/ Sodium (Chloride) 250 mls @ 250 mls/hr IV Q12H [facility] Stop: 12/28/16 22:59 Last Admin: 12/28/16 21:43 Dose: 250 mls/hr Lactated Ringer's (Ringers, Lactated) 250 mls @ 999 mls/hr IV ONETIME ONE Stop: 12/27/16 20:44 Last Admin: 12/27/16 20:49 Dose: 999 mls/hr Lactated Ringer's (Ringers, Lactated) 1,000 mls @ 70 mls/hr IV ASDIRECTED [facility] Last Admin: 12/29/16 00:18 Dose: 70 mls/hr Iodine (Iodine 2% Mild Tincture) Confirm Administered Dose 30 ml .ROUTE .STK- MED ONE Stop: 12/27/16 09:53 Last Admin: 12/27/16 13:38 Dose: 18 ml Ketamine HCl (Ketalar) Confirm Administered Dose 500 mg .ROUTE .STK-MED ONE Stop: 12/27/16 13:14 Ketorolac Tromethamine (Toradol) 15 mg IVPUSH ONETIME TIFF Stop: 12/27/16 18:00 Last Admin: 12/27/16 15:35 Dose: 15 mg Lidocaine/Sodium Bicarbonate (Buffered Lidocaine 1% In Ns 8.4%) 0.25 ml IV ONETIME PRN PRN Reason: Prior to IV Start Stop: 12/27/16 18:00 Last Admin: 12/27/16 10:01 Dose: 0.25 ml Metoclopramide HCl (Reglan) 10 mg IVPUSH Q6H TIFF Metoclopramide HCl (Reglan) 5 mg IVPUSH Q6H TIFF Last Admin: 12/29/16 03:19 Dose: 5 mg Naloxone HCl (Narcan) 0.1 mg IVPUSH Q5M PRN PRN Reason: Oversedation Stop: 12/27/16 15:29 Oxycodone/Acetaminophen (Percocet 325-5 Mg) 1 - 2 tab PO Q4H PRN PRN Reason: Pain Oxycodone/Acetaminophen (Percocet 325-5 Mg) 1 - 2 tab PO Q4H PRN PRN Reason: Pain Last Admin: 12/29/16 03:15 Dose: 2 tab Potassium Chloride (Klor-Con M20) 40 meq PO ONETIME ONE Stop: 12/30/16 07:19 Propofol (Diprivan 20 Ml) Confirm Administered Dose 200 mg .ROUTE .STK-MED ONE Stop: 12/27/16 10:36 Propofol (Diprivan 20 Ml) Confirm Administered Dose 200 mg .ROUTE .STK-MED ONE Stop: 12/27/16 14:05 Rivaroxaban (Xarelto) 10 mg PO DAILY [facility] Sodium Chloride (Saline Flush) 10 ml FLUSH ASDIRECTED PRN PRN Reason: Keep Vein Open Stop: 12/27/16 18:00 Terazosin HCl (Hytrin) 2 mg PO ONETIME ONE Stop: 12/27/16 20:58 Last Admin: 12/27/16 21:59 Dose: Not Given Tranexamic Acid (Cyklokapron) Confirm Administered Dose 1,000 mg .ROUTE .STK- MED ONE Stop: 12/27/16 09:53 Last Admin: 12/27/16 13:48 Dose: 1,000 mg Vancomycin HCl (Pharmacy To Dose - Vancomycin) 1 dose .XX ASDIRECTED [facility] Stop: 12/29/16 15:16 - Exam Wound/Incisions: dressing dry and intact General: alert, cooperative, no acute distress Lungs: Normal respiratory effort Extremities: normal pulses, no calf tenderness, other (Independent SLR LLE. Mod effusion left knee. Molly's negative for LLE and NVS intact.) - Problem List Review Problem List Initiated/Reviewed/Updated: Yes - My Orders Last 24 Hours: Active Orders 24 hr Category Date Time Status Ready for Discharge [RC] PER UNIT ROUTINE Care 12/30/16 07:23 Active Acetaminophen/HYDROcodone [[place] 325-5 MG] Med 12/29/16 07:24 Active 1 - 2 tab PO Q4H PRN Metoclopramide [Reglan] Med 12/29/16 06:59 Active 5 mg IVPUSH Q6H PRN Medication Orders Hydrocodone Bitart/Acetaminophen ([place] 325-5 Mg) 1 - 2 tab PO Q4H PRN PRN Reason: Pain Last Admin: 12/30/16 06:29 Dose: 2 tab Admin: 12/30/16 01:27 Dose: 2 tab Admin: 12/29/16 21:25 Dose: 2 tab Admin: 12/29/16 07:38 Dose: 2 tab Albuterol (Proventil Neb Soln) 1.25 mg NEB Q6HRRT PRN PRN Reason: Shortness of Breath Amlodipine Besylate (Norvasc) 5 mg PO DAILY [facility] Last Admin: 12/29/16 09:01 Dose: 5 mg Admin: 12/28/16 09:15 Dose: 5 mg Atenolol (Tenormin) 25 mg PO DAILY [facility] Last Admin: 12/29/16 09:00 Dose: 25 mg Admin: 12/28/16 09:14 Dose: Bisacodyl (Dulcolax) 5 mg PO DAILY PRN PRN Reason: Constipation Last Admin: 12/30/16 06:29 Dose: 5 mg Calcium Carbonate/Glycine (Tums) 1,000 mg PO TID [facility] Last Admin: 12/29/16 21:25 Dose: 1,000 mg Admin: 12/29/16 14:22 Dose: 1,000 mg Admin: 12/29/16 09:00 Dose: 1,000 mg Admin: 12/28/16 21:36 Dose: 1,000 mg Admin: 12/28/16 15:50 Dose: 1,000 mg Admin: 12/28/16 09:13 Dose: 1,000 mg Admin: 12/27/16 20:50 Dose: 1,000 mg Docusate Sodium (Colace) 100 mg PO BID [facility] Last Admin: 12/29/16 21:25 Dose: 100 mg Admin: 12/29/16 09:00 Dose: 100 mg Admin: 12/28/16 21:36 Dose: 100 mg Admin: 12/28/16 09:12 Dose: 100 mg Admin: 12/27/16 20:51 Dose: 100 mg Enoxaparin Sodium (Lovenox) 30 mg SUBCUT DAILY [facility] Last Admin: 12/29/16 09:00 Dose: 30 mg Admin: 12/28/16 09:16 Dose: 30 mg Ferrous Sulfate (Ferrous Sulfate) 325 mg PO DAILY [facility] Last Admin: 12/29/16 09:02 Dose: 325 mg Admin: 12/28/16 09:15 Dose: 325 mg Hydralazine HCl (Apresoline) 20 mg IVPUSH Q6H PRN PRN Reason: Hypertension Levothyroxine Sodium (Levothyroxine) 112 mcg PO ACBRK [facility] Last Admin: 12/30/16 06:29 Dose: 112 mcg Admin: 12/29/16 06:37 Dose: 112 mcg Admin: 12/28/16 06:45 Dose: 112 mcg Losartan Potassium (Cozaar) 50 mg PO DAILY [facility] Last Admin: 12/29/16 09:01 Dose: 50 mg Admin: 12/28/16 09:13 Dose: 50 mg Magnesium Hydroxide (Milk Of Magnesia) 30 ml PO BID PRN PRN Reason: Constipation Metoclopramide HCl (Reglan) 5 mg IVPUSH Q6H PRN PRN Reason: Nausea/Vomiting Miscellaneous Information (Remove Patch) 1 ea TRDERM Q72H PRN PRN Reason: removal Morphine Sulfate (Morphine) 2 mg IVPUSH Q2H PRN PRN Reason: Breakthrough Pain Multivitamins (Thera) 1 each PO WITHBREAKFAST [facility] Last Admin: 12/30/16 06:29 Dose: 1 each Admin: 12/29/16 06:37 Dose: 1 each Admin: 12/28/16 06:45 Dose: 1 each Ondansetron HCl (Zofran) 4 mg IVPUSH Q6H PRN PRN Reason: Nausea/Vomiting Pantoprazole Sodium (Protonix) 40 mg PO DAILY@0700 [facility] Last Admin: 12/30/16 06:29 Dose: 40 mg Admin: 12/29/16 06:37 Dose: 40 mg Admin: 12/28/16 06:45 Dose: 40 mg Chondroitin/ (Glucosamine Tabs) 0 each PO DAILY [facility] Last Admin: 12/29/16 09:08 Dose: Admin: 12/28/16 09:16 Dose: D-Mannose [Mannose] (Tablets) 0 each PO DAILY [facility] Last Admin: 12/29/16 09:08 Dose: Admin: 12/28/16 09:16 Dose: Scopolamine (Transderm-Scop) 1.5 mg TRDERM Q72H PRN PRN Reason: Nausea Last Admin: 12/27/16 20:53 Dose: 1.5 mg Senna (Senna) 8.6 mg PO BID PRN PRN Reason: Constipation Simvastatin (Zocor) 20 mg PO DAILY [facility] Last Admin: 12/29/16 09:02 Dose: 20 mg Admin: 12/28/16 09:13 Dose: 20 mg - Assessment Assessment (Free Text/Narrative):: POD#3 - left TKA - Plan Plan (Free Text/Narrative):: 1. Discharge to [place] today for continued therapy. 2. Lovenox for VTE prophylaxis. TEDs and frequent mobility. 3. Further orders per Hospitalist service. The pt's case was discussed with Dr. Ingram.
[2016-12-30 08:07] VITALS: BP 148/54
--- NOTE | 2016-12-30 08:11 | PCM.CONSN ---
- General Info Date of Service: 12/30/16 Admission Dx/Problem (Free Text): POD #2 Lt TKA Doing well, pain under good control, no nausea. Working with PT/OT. Plans for rehab stay at [facility], [place] today. Functional Status: Reports: pain controlled, tolerating diet, ambulating, urinating. Denies: new symptoms - Review of Systems General: Reports: No Symptoms HEENT: Reports: no symptoms Pulmonary: Reports: no symptoms Cardiovascular: Reports: No Symptoms Gastrointestinal: Reports: No symptoms Genitourinary: Reports: no symptoms Musculoskeletal: Reports: leg pain Skin: Reports: no symptoms Neurological: Reports: No Symptoms Psychiatric: Reports: no symptoms - Patient Data Vitals - most recent: Last Vital Signs Temp 98.2 F 12/30/16 07:35 Pulse 57 L 12/30/16 07:35 Resp 12 12/30/16 07:35 BP 148/54 H 12/30/16 07:35 Pulse Ox 95 12/30/16 07:35 Weight - most recent: 174 lb 6.4 oz I&O - last 24 hours: Intake & Output 12/29/16 12/30/16 12/30/16 22:59 06:59 14:59 Intake Total 930 650 Output Total 3 1250 Balance 927 -600 Lab Results last 24 hrs: Laboratory Results - last 24 hr 12/30/16 12/30/16 Range/Units 06:27 06:27 WBC 10.97 H (3.98-10.04) K/mm3 RBC 3.06 L (3.98-5.22) M/mm3 Hgb 9.6 L (11.2-15.7) gm/L Hct 29.0 L (34.1-44.9) % MCV 94.8 (79.4-94.8) fl MCH 31.4 (25.6-32.2) pg MCHC 33.1 (32.2-35.5) g/dl RDW Std Deviation 41.9 (36.4-46.3) fL Plt Count 250 (182-369) K/mm3 MPV 10.6 (9.4-12.3) fl Neut % (Auto) 62.8 (34.0-71.1) % Lymph % (Auto) 20.7 (19.3-51.7) % Hawkins % (Auto) 13.5 H (4.7-12.5) % Eos % (Auto) 2.5 (0.7-5.8) Baso % (Auto) 0.2 (0.1-1.2) % Neut # (Auto) 6.90 H (1.56-6.13) K/mm3 Lymph # (Auto) 2.27 (1.18-3.74) K/mm3 Hawkins # (Auto) 1.48 H (0.24-0.36) K/mm3 Eos # (Auto) 0.27 (0.04-0.36) K/mm3 Baso # (Auto) 0.02 (0.01-0.08) K/mm3 Sodium 141 (136-145) mEq/L Potassium 3.2 L (3.5-5.1) mEq/L Chloride 106 (98-107) mEq/L Carbon Dioxide 23 (21-32) mEq/L Anion Gap 15.2 H (5-15) BUN 11 (7-18) mg/dL Creatinine 1.1 H (0.55-1.02) mg/dL Est Cr Clr Drug Dosing 29.04 mL/min Estimated GFR (MDRD) 47 (>60) mL/min BUN/Creatinine Ratio 10.0 L (14-18) Glucose 97 (83-115) mg/dL Calcium 9.0 (8.5-10.1) mg/dL Med Orders - Current: Current Medications Hydrocodone Bitart/Acetaminophen (Corona 325-5 Mg) 1 - 2 tab PO Q4H PRN PRN Reason: Pain Last Admin: 12/30/16 06:29 Dose: 2 tab Albuterol (Proventil Neb Soln) 1.25 mg NEB Q6HRRT PRN PRN Reason: Shortness of Breath Amlodipine Besylate (Norvasc) 5 mg PO DAILY [facility] Last Admin: 12/29/16 09:01 Dose: 5 mg Atenolol (Tenormin) 25 mg PO DAILY [facility] Last Admin: 12/29/16 09:00 Dose: 25 mg Bisacodyl (Dulcolax) 5 mg PO DAILY PRN PRN Reason: Constipation Last Admin: 12/30/16 06:29 Dose: 5 mg Calcium Carbonate/Glycine (Tums) 1,000 mg PO TID [facility] Last Admin: 12/29/16 21:25 Dose: 1,000 mg Docusate Sodium (Colace) 100 mg PO BID [facility] Last Admin: 12/29/16 21:25 Dose: 100 mg Enoxaparin Sodium (Lovenox) 30 mg SUBCUT DAILY [facility] Last Admin: 12/29/16 09:00 Dose: 30 mg Ferrous Sulfate (Ferrous Sulfate) 325 mg PO DAILY [facility] Last Admin: 12/29/16 09:02 Dose: 325 mg Hydralazine HCl (Apresoline) 20 mg IVPUSH Q6H PRN PRN Reason: Hypertension Levothyroxine Sodium (Levothyroxine) 112 mcg PO ACBRK [facility] Last Admin: 12/30/16 06:29 Dose: 112 mcg Losartan Potassium (Cozaar) 50 mg PO DAILY [facility] Last Admin: 12/29/16 09:01 Dose: 50 mg Magnesium Hydroxide (Milk Of Magnesia) 30 ml PO BID PRN PRN Reason: Constipation Metoclopramide HCl (Reglan) 5 mg IVPUSH Q6H PRN PRN Reason: Nausea/Vomiting Miscellaneous Information (Remove Patch) 1 ea TRDERM Q72H PRN PRN Reason: removal Morphine Sulfate (Morphine) 2 mg IVPUSH Q2H PRN PRN Reason: Breakthrough Pain Multivitamins (Thera) 1 each PO WITHBREAKFAST [facility] Last Admin: 12/30/16 06:29 Dose: 1 each Ondansetron HCl (Zofran) 4 mg IVPUSH Q6H PRN PRN Reason: Nausea/Vomiting Pantoprazole Sodium (Protonix) 40 mg PO DAILY@0700 [facility] Last Admin: 12/30/16 06:29 Dose: 40 mg Chondroitin/ (Glucosamine Tabs) 0 each PO DAILY [facility] Last Admin: 12/29/16 09:08 Dose: Not Given D-Mannose [Mannose] (Tablets) 0 each PO DAILY [facility] Last Admin: 12/29/16 09:08 Dose: Not Given Scopolamine (Transderm-Scop) 1.5 mg TRDERM Q72H PRN PRN Reason: Nausea Last Admin: 12/27/16 20:53 Dose: 1.5 mg Senna (Senna) 8.6 mg PO BID PRN PRN Reason: Constipation Simvastatin (Zocor) 20 mg PO DAILY [facility] Last Admin: 12/29/16 09:02 Dose: 20 mg Discontinued Medications Hydrocodone Bitart/Acetaminophen (Corona 325-5 Mg) 1 - 2 tab PO Q4H PRN PRN Reason: Pain Last Admin: 12/28/16 11:32 Dose: 2 tab Amlodipine Besylate (Norvasc) 5 mg PO ONETIME ONE Stop: 12/27/16 21:01 Last Admin: 12/27/16 21:03 Dose: 5 mg Bupivacaine HCl (Marcaine 0.25%) Confirm Administered Dose 30 ml .ROUTE .STK- MED ONE Stop: 12/27/16 09:53 Last Admin: 12/27/16 13:46 Dose: 30 ml Cefazolin Sodium (Ancef) Confirm Administered Dose 2 gm .ROUTE .STK-MED ONE Stop: 12/27/16 09:53 Last Admin: 12/27/16 13:40 Dose: 2 gm Clonidine HCl (Duraclon) Confirm Administered Dose 1,000 mcg .ROUTE .STK-MED ONE Stop: 12/27/16 16:10 Morphine Sulfate 8 mg/Epinephrine HCl 0.3 mg/Cefuroxime Sodium 750 mg/Ketorolac Tromethamine 30 mg/Sodium Chloride 27.9 ml 0 mg .XX ONETIME ONE Stop: 07/26/16 07:01 Morphine Sulfate 8 mg/Epinephrine HCl 0.3 mg/Cefuroxime Sodium 750 mg/Ketorolac Tromethamine 30 mg/Sodium Chloride 27.9 ml 0 mg .XX ONETIME ONE Stop: 12/27/16 11:31 Last Admin: 12/27/16 13:45 Dose: 788.3 mg Famotidine (Pepcid) 20 mg PO Q12HR TIFF Last Admin: 12/28/16 09:15 Dose: 20 mg Fentanyl (Sublimaze) Confirm Administered Dose 100 mcg .ROUTE .STK-MED ONE Stop: 12/27/16 12:59 Fentanyl (Sublimaze) 50 mcg IVPUSH Q5M PRN PRN Reason: Pain Stop: 12/27/16 18:00 Last Admin: 12/27/16 15:27 Dose: 50 mcg Fentanyl (Sublimaze) Confirm Administered Dose 250 mcg .ROUTE .STK-MED ONE Stop: 12/27/16 15:08 Hydromorphone HCl (Dilaudid) 0.5 mg IVPUSH Q15M PRN PRN Reason: severe pain Stop: 12/27/16 15:56 Last Admin: 12/27/16 16:14 Dose: 0.5 mg Lactated Ringer's (Ringers, Lactated) 1,000 mls @ 125 mls/hr IV ASDIRECTED [facility] Stop: 12/27/16 23:00 Last Admin: 12/27/16 16:51 Dose: 125 mls/hr Vancomycin HCl 1 gm/ Sodium (Chloride) 250 mls @ 250 mls/hr IV ONETIME ONE Stop: 12/27/16 10:59 Last Admin: 12/27/16 10:05 Dose: 250 mls/hr Lidocaine HCl (Xylocaine-Mpf 1%) Confirm Administered Dose 2 mls @ as directed .ROUTE .STK-MED ONE Stop: 12/27/16 10:38 Lidocaine HCl (Xylocaine-Mpf 1%) Confirm Administered Dose 2 mls @ as directed .ROUTE .STK-MED ONE Stop: 12/27/16 12:48 Lactated Ringer's (Ringers, Lactated) Confirm Administered Dose 1,000 mls @ as directed .ROUTE .STK-MED ONE Stop: 12/27/16 13:08 Acetaminophen (Ofirmev) 100 mls @ 400 mls/hr IV NOW ONE Stop: 12/27/16 15:08 Last Admin: 12/27/16 15:04 Dose: 400 mls/hr Cefazolin Sodium/Dextrose 2 gm (/ Premix) 50 mls @ 100 mls/hr IV Q8H [facility] Stop: 12/28/16 10:29 Last Admin: 12/28/16 09:11 Dose: 100 mls/hr Vancomycin HCl 1 gm/ Sodium (Chloride) 250 mls @ 250 mls/hr IV Q12H [facility] Stop: 12/28/16 22:59 Last Admin: 12/28/16 21:43 Dose: 250 mls/hr Lactated Ringer's (Ringers, Lactated) 250 mls @ 999 mls/hr IV ONETIME ONE Stop: 12/27/16 20:44 Last Admin: 12/27/16 20:49 Dose: 999 mls/hr Lactated Ringer's (Ringers, Lactated) 1,000 mls @ 70 mls/hr IV ASDIRECTED [facility] Last Admin: 12/29/16 00:18 Dose: 70 mls/hr Iodine (Iodine 2% Mild Tincture) Confirm Administered Dose 30 ml .ROUTE .STK- MED ONE Stop: 12/27/16 09:53 Last Admin: 12/27/16 13:38 Dose: 18 ml Ketamine HCl (Ketalar) Confirm Administered Dose 500 mg .ROUTE .STK-MED ONE Stop: 12/27/16 13:14 Ketorolac Tromethamine (Toradol) 15 mg IVPUSH ONETIME TIFF Stop: 12/27/16 18:00 Last Admin: 12/27/16 15:35 Dose: 15 mg Lidocaine/Sodium Bicarbonate (Buffered Lidocaine 1% In Ns 8.4%) 0.25 ml IV ONETIME PRN PRN Reason: Prior to IV Start Stop: 12/27/16 18:00 Last Admin: 12/27/16 10:01 Dose: 0.25 ml Metoclopramide HCl (Reglan) 10 mg IVPUSH Q6H TIFF Metoclopramide HCl (Reglan) 5 mg IVPUSH Q6H TIFF Last Admin: 12/29/16 03:19 Dose: 5 mg Naloxone HCl (Narcan) 0.1 mg IVPUSH Q5M PRN PRN Reason: Oversedation Stop: 12/27/16 15:29 Oxycodone/Acetaminophen (Percocet 325-5 Mg) 1 - 2 tab PO Q4H PRN PRN Reason: Pain Oxycodone/Acetaminophen (Percocet 325-5 Mg) 1 - 2 tab PO Q4H PRN PRN Reason: Pain Last Admin: 12/29/16 03:15 Dose: 2 tab Potassium Chloride (Klor-Con M20) 40 meq PO ONETIME ONE Stop: 12/30/16 07:19 Propofol (Diprivan 20 Ml) Confirm Administered Dose 200 mg .ROUTE .STK-MED ONE Stop: 12/27/16 10:36 Propofol (Diprivan 20 Ml) Confirm Administered Dose 200 mg .ROUTE .STK-MED ONE Stop: 12/27/16 14:05 Rivaroxaban (Xarelto) 10 mg PO DAILY [facility] Sodium Chloride (Saline Flush) 10 ml FLUSH ASDIRECTED PRN PRN Reason: Keep Vein Open Stop: 12/27/16 18:00 Terazosin HCl (Hytrin) 2 mg PO ONETIME ONE Stop: 12/27/16 20:58 Last Admin: 12/27/16 21:59 Dose: Not Given Tranexamic Acid (Cyklokapron) Confirm Administered Dose 1,000 mg .ROUTE .STK- MED ONE Stop: 12/27/16 09:53 Last Admin: 12/27/16 13:48 Dose: 1,000 mg Vancomycin HCl (Pharmacy To Dose - Vancomycin) 1 dose .XX ASDIRECTED [facility] Stop: 12/29/16 15:16 - Exam Quality Assessment: DVT prophylaxis General: alert, oriented, cooperative, no acute distress HEENT: Pupils equal, Pupils reactive, EOMI, Mucous membr. moist/pink Neck: supple Lungs: Clear to auscultation, Normal respiratory effort Cardiovascular: Regular Rate, Regular Rhythm Abdomen: bowel sounds present, soft, no tenderness, no distension (Female) Exam: Deferred Extremities: other (Teds and scd's bilat) Peripheral Pulses: 1+: Dorsalis Pedis (L), Dorsalis Pedis (R) Wound/Incisions: dressing dry and intact Neurological: no new focal deficit Psy/Mental Status: alert, normal affect, normal mood Consult PN Assessment/Plan POD#: 2 Procedures: Procedures AGENT NOS ASSAY W/OPTIC (08/05/16) ASSAY OF AMYLASE (05/04/15) ASSAY OF CREATININE (02/27/14) ASSAY OF FERRITIN (12/07/16) ASSAY OF IRON (12/07/16) ASSAY OF LIPASE (08/05/16) ASSAY OF PREALBUMIN (07/08/16) ASSAY OF TRANSFERRIN (12/07/16) ASSAY OF TROPONIN QUANT (08/05/16) ASSAY THYROID STIM HORMONE (12/07/16) BLOOD CULTURE FOR BACTERIA (05/04/15) C-REACTIVE PROTEIN (08/05/16) CHEST X-RAY 1 VIEW FRONTAL (03/20/15) CHEST X-RAY 2VW FRONTAL&LATL (07/08/16) COMP SCREEN MAMMOGRAM ADD-ON (08/08/15) COMPLETE CBC AUTOMATED (12/07/16) COMPLETE CBC W/AUTO DIFF WBC (08/05/16) COMPREHEN METABOLIC PANEL (12/07/16) CULTURE AEROBIC IDENTIFY (05/29/14) ELECTROCARDIOGRAM TRACING (08/05/16) EMERGENCY DEPT VISIT (08/05/16) GAIT TRAINING THERAPY (05/04/15) HELICOBACTER PYLORI ANTIBODY (08/05/16) HYDRATE IV INFUSION ADD-ON (08/05/16) INJ FORAMEN EPIDURAL L/S (03/13/14) LEUKOCYTE ASSESSMENT FECAL (08/05/16) MEASURE BLOOD OXYGEN LEVEL (04/07/15) MEASURE BLOOD OXYGEN LEVEL (04/07/15) MEASURE BLOOD OXYGEN LEVEL (04/07/15) METABOLIC PANEL TOTAL CA (04/07/15) MICROBE SUSCEPTIBLE EDWARD (12/07/16) MR-STAPH DNA AMP PROBE (04/07/15) MRI LUMBAR SPINE W/O DYE (02/27/14) MYCOPLASMA ANTIBODY (06/05/14) OCCULT BLD FECES 1-3 TESTS (08/05/16) OCCULT BLOOD FECES (08/05/16) OFFICE/OUTPATIENT VISIT EST (12/07/16) OT EVALUATION (05/04/15) PT EVALUATION (05/04/15) ROUTINE VENIPUNCTURE (12/07/16) SELF CARE MNGMENT TRAINING (04/07/15) STOOL CULTR AEROBIC BACT EA (08/05/16) THER/PROPH/DIAG INJ IV PUSH (08/05/16) THER/PROPH/DIAG IV INF INIT (05/04/15) THERAPEUTIC ACTIVITIES (05/04/15) THERAPEUTIC EXERCISES (05/04/15) THROMBOPLASTIN TIME PARTIAL (04/03/15) TX/PRO/DX INJ NEW DRUG ADDON (05/04/15) URINALYSIS AUTO W/O SCOPE (07/24/15) URINALYSIS AUTO W/SCOPE (12/07/16) URINE BACTERIA CULTURE (12/07/16) URINE CULTURE/COLONY COUNT (12/07/16) US EXAM ABDO BACK WALL COMP (05/04/15) VITAMIN B-12 (05/04/15) VITAMIN D 25 HYDROXY (07/08/16) X-RAY EXAM L-2 SPINE 4/>VWS (08/20/15) X-RAY EXAM OF ABDOMEN (08/05/16) X-RAY EXAM OF FINGER(S) (03/08/16) X-RAY EXAM OF KNEE 1 OR 2 (04/07/15) X-RAY EXAM OF SHOULDER (03/08/16) (1) S/P total knee arthroplasty SNOMED Code(s): 4249302371154, 821091607, 0625599214106 Code(s): Z96.659 - PRESENCE OF UNSPECIFIED ARTIFICIAL KNEE JOINT Priority: High Current Visit: Yes Qualifiers: Laterality: left Qualified Code(s): Z96.652 - Presence of left artificial knee joint (2) Osteoarthritis SNOMED Code(s): 834229126 Code(s): M19.90 - UNSPECIFIED OSTEOARTHRITIS, UNSPECIFIED SITE Current Visit: Yes Qualifiers: Osteoarthritis location: knee Osteoarthritis type: primary Laterality: left Qualified Code(s): M17.12 - Unilateral primary osteoarthritis, left knee (3) Anemia SNOMED Code(s): 662351800 Code(s): D64.9 - ANEMIA, UNSPECIFIED Priority: Medium Current Visit: Yes Qualifiers: Anemia type: unspecified type Qualified Code(s): D64.9 - Anemia, unspecified (4) GERD (gastroesophageal reflux disease) SNOMED Code(s): 620334620 Code(s): K21.9 - GASTRO-ESOPHAGEAL REFLUX DISEASE WITHOUT ESOPHAGITIS Priority: Medium Current Visit: No Qualifiers: Esophagitis presence: esophagitis presence not specified Qualified Code(s) : K21.9 - Gastro-esophageal reflux disease without esophagitis (5) History of IBS SNOMED Code(s): 28319513879847 Code(s): Z87.19 - PERSONAL HISTORY OF OTHER DISEASES OF THE DIGESTIVE SYSTEM Priority: Medium Current Visit: No (6) Hx of myocardial infarction SNOMED Code(s): 903630858 Code(s): I25.2 - OLD MYOCARDIAL INFARCTION Priority: Medium Current Visit : No (7) History of CVA (cerebrovascular accident) SNOMED Code(s): 758443577 Code(s): Z86.73 - PRSNL HX OF TIA (TIA), AND CEREB INFRC W/O RESID DEFICITS Priority: Medium Current Visit: No Problem List Initiated/Reviewed/Updated: Yes My Orders last 24 hours: My Active Orders 12/30/16 07:23 Ready for Discharge [RC] PER UNIT ROUTINE Plan: I/P: POD #2; Lt TKA with Dr. Ingram -Pain management and DVT prophylax per Orthopedics -PT/OT -IS/RT -Preop hgb was 11.7-->9.9-->9.0---9.6 today -Doing well Chronic conditions: GERD HTN HLD OAB Hypothyroidism Hx of chronic UTI- recently treated with abx Hx of CVA Hx of AMI Hx of IBS Hx of PUD with perforation in the past- will dc with lovenox for DVT prophylax as discussed with Orthopedics with f/up with Ortho in 2 weeks. Other: CM/SW for assist with DC planning- plans DC to SNF- [facility] for rehab stay today ; medically stable for dc today. GI prophylax Patient is Full Code status.
[2016-12-30] MEDS: Ferrous Sulfate 325 MG Tab PO SCH (08:13)
[2016-12-30] MEDS: Losartan 25 MG Tab PO SCH (08:13)
[2016-12-30] MEDS: Calcium Carbonate 500 MG Tab.Chew PO SCH (08:14)
[2016-12-30] MEDS: Simvastatin 20 MG Tab PO SCH (08:14)
[2016-12-30] MEDS: Atenolol 25 MG Tab PO SCH (08:14)
[2016-12-30] MEDS: amLODIPine 5 MG Tab PO SCH (08:14)
[2016-12-30] MEDS: Docusate Sodium 100 MG Cap PO SCH (08:14)
[2016-12-30] MEDS: GLUCOSAMINE PO SCH (08:15)
[2016-12-30] MEDS: CHONDROITIN PO SCH (08:15)
[2016-12-30] MEDS: Enoxaparin 30 MG/0.3 ML Syringe SUBCUT SCH (08:15)
[2016-12-30] MEDS: D MANNOSE PO SCH (08:15)
--- NOTE | 2016-12-30 12:59 | PCM.DCSUM1 ---
Discharge Summary - Hospital Course Brief History: Bessie is an 86 yo female who underwent left TKA with Dr. Ingram on 12-27-2016 . The procedure was completed under spinal anesthesia. The pt tolerated the procedure well and was admitted to the Medical-Surgical Unit. Medical management was provided by the Hospitalist service. The pt's Hospital course was uneventful. Her blood sugars were monitored. The pt's Hgb on POD#1 was 9.9. On POD#1, Lovenox was initiated for VTE prophylaxis as the pt's renal status indicated Xarelto could not be used. SCDs and TEDs were also ordered. A Mepilex dressing was placed at the incision site at the time of surgery and remained clean and dry. The pt participated in P.T. and O.T. and progressed well. The pt was allowed to WBAT. On POD#3, the pt was deemed appropriate to discharge to the [facility] for continued rehabilitation. - Discharge Data Discharge Date: 12/30/16 Discharge Disposition: DC/Tfer to [facility] 03 Condition: Good - Patient Summary/Data Operative Procedure(s) Performed: Right total knee arthroplasty Consults: Consultations 12/27/16 15:13 Consult to Physician [CONS] Routine OT Evaluation and Treatment [CONS] Routine 12/27/16 15:18 PT Evaluation and Treatment [CONS] Routine - Patient Instructions Diet: Usual Diet as Tolerated Activity: Apply Ice, As Tolerated, Elevate Extremity, Full Weight Bearing Driving: Do Not Drive Driving, Other: Do not drive while using pain medication. Showering/Bathing: May Shower Showering/Bathing, Other: Keep the dressing in place with showering. Wound/Incision Care: Keep Operative Site/Wound Site Clean and Dry, Do NOT Change Dressing Notify Provider of: Fever, Increased Pain, Swelling and Redness, Drainage, Nausea and/or Vomiting Other/Special Instructions: Please get up and moving around every hour while awake. This helps to prevent blood clots. Take the blood thinner medication Lovenox daily. Please schedule for P.T. Use the pain medication as needed. The medication may cause drowisness and/or constipation. You could use a stool softener like docusate sodium or Colace 100mg twice daily and/or a laxative like Miralax daily. Contact your primary care provider for other instructions if you are constipated. Please wear the VIOLETTE hose during the day and you may remove these at night. Place ice to the knee as often as able. Have a cloth or towel between the ice pad and your skin. Please schedule a follow-up appointment with your primary care provider for "routine post-op care". Please call the Orthopedic clinic with other questions or concerns - [phone]. - Discharge Plan Prescriptions/Med Rec: Acetaminophen/HYDROcodone [[place] 325-5 MG] 1 - 2 tab PO Q4H PRN #60 tablet PRN Reason: Pain Docusate Sodium [Colace] 100 mg PO BID #60 cap Enoxaparin [Lovenox] 30 mg SUBCUT DAILY #14 syringe Home Medications: Home Meds Atenolol 25 mg PO DAILY 03/08/14 [History] Calcium Carbonate [Calcium] 1,200 mg PO TID 03/08/14 [History] Glucosamine/Chondroitin Sulf A [Glucosamine Chondroitin Cap] 1 each PO DAILY [History] Irbesartan [Avapro] 150 mg PO DAILY 03/08/14 [History] Levothyroxine Sodium [Synthroid] 112 mcg PO DAILY 03/08/14 [History] Simvastatin [Zocor] 20 mg PO DAILY 03/08/14 [History] amLODIPine [Norvasc] 5 mg PO DAILY 03/08/14 [History] Pantoprazole [ProTONIX] 40 mg PO DAILY 04/04/15 [History] Aspirin [Ecotrin] 81 mg PO Q48H 04/07/15 [History] Ferrous Sulfate [Iron] 325 mg PO DAILY #90 tablet 05/06/15 [Rx] D-Mannose [Mannose] 1 tab PO TID 12/24/16 [History] Multivit-Min/FA/Lycopene/Lut [Centrum Silver Tablet] 1 each PO DAILY 12/24/16 [ History] Aspirin [Ecotrin] 162 mg PO Q48H 12/28/16 [History] [place]-3/DHA/Epa/Fish Oil [Fish Oil 500 MG Softgel] 1 tab PO BID 12/28/16 [ History] Acetaminophen/HYDROcodone [[place] 325-5 MG] 1 - 2 tab PO Q4H PRN #60 tablet 12/30 [Rx] Bisacodyl [Dulcolax] 5 mg PO DAILY PRN #0 tablet 12/30/16 [Rx] Docusate Sodium [Colace] 100 mg PO BID #60 cap 12/30/16 [Rx] Enoxaparin [Lovenox] 30 mg SUBCUT DAILY #14 syringe 12/30/16 [Rx] Magnesium Hydroxide [Milk of Magnesia] 30 ml PO BID PRN #0 cup 12/30/16 [Rx] Patient Handouts: Total Knee Replacement, Care After, [id number], Total Knee Replacement, [id number], Knee Rehabilitation Guidelines Following Surgery, How and Where to Give Subcutaneous Enoxaparin Injections Referrals: Oneyda Loredo PA-C [Physician Process Improvement Manager] - 01/04/17 10:45 am (and second follow up appointment on 01/11 at 11:00 am in [place] at 's office at [facility]) Lv Recio MD [Physician] - Hamida Lantigua PA-C [Primary Care Provider] - - Patient Data Vitals - Most Recent: Last Vital Signs Temp 98.2 F 12/30/16 07:35 Pulse 57 L 12/30/16 08:14 Resp 12 12/30/16 07:35 BP 148/54 H 12/30/16 08:14 Pulse Ox 95 12/30/16 07:35 Weight - Most Recent: 174 lb 6.4 oz I&O - Last 24 hours: Intake & Output 12/29/16 12/30/16 12/30/16 22:59 06:59 14:59 Intake Total 930 650 210 Output Total 3 1250 Balance 927 -600 210 Lab Results - Last 24 hrs: Laboratory Results - last 24 hr 12/30/16 12/30/16 Range/Units 06:27 06:27 WBC 10.97 H (3.98-10.04) K/mm3 RBC 3.06 L (3.98-5.22) M/mm3 Hgb 9.6 L (11.2-15.7) gm/L Hct 29.0 L (34.1-44.9) % MCV 94.8 (79.4-94.8) fl MCH 31.4 (25.6-32.2) pg MCHC 33.1 (32.2-35.5) g/dl RDW Std Deviation 41.9 (36.4-46.3) fL Plt Count 250 (182-369) K/mm3 MPV 10.6 (9.4-12.3) fl Neut % (Auto) 62.8 (34.0-71.1) % Lymph % (Auto) 20.7 (19.3-51.7) % [place] % (Auto) 13.5 H (4.7-12.5) % Eos % (Auto) 2.5 (0.7-5.8) Baso % (Auto) 0.2 (0.1-1.2) % Neut # (Auto) 6.90 H (1.56-6.13) K/mm3 Lymph # (Auto) 2.27 (1.18-3.74) K/mm3 [place] # (Auto) 1.48 H (0.24-0.36) K/mm3 Eos # (Auto) 0.27 (0.04-0.36) K/mm3 Baso # (Auto) 0.02 (0.01-0.08) K/mm3 Sodium 141 (136-145) mEq/L Potassium 3.2 L (3.5-5.1) mEq/L Chloride 106 (98-107) mEq/L Carbon Dioxide 23 (21-32) mEq/L Anion Gap 15.2 H (5-15) BUN 11 (7-18) mg/dL Creatinine 1.1 H (0.55-1.02) mg/dL Est Cr Clr Drug Dosing 29.04 mL/min Estimated GFR (MDRD) 47 (>60) mL/min BUN/Creatinine Ratio 10.0 L (14-18) Glucose 97 (83-115) mg/dL Calcium 9.0 (8.5-10.1) mg/dL Med Orders - Current: Current Medications Discontinued Medications Hydrocodone Bitart/Acetaminophen ([place] 325-5 Mg) 1 - 2 tab PO Q4H PRN PRN Reason: Pain Last Admin: 12/28/16 11:32 Dose: 2 tab Hydrocodone Bitart/Acetaminophen ([place] 325-5 Mg) 1 - 2 tab PO Q4H PRN PRN Reason: Pain Last Admin: 12/30/16 09:46 Dose: 2 tab Albuterol (Proventil Neb Soln) 1.25 mg NEB Q6HRRT PRN PRN Reason: Shortness of Breath Amlodipine Besylate (Norvasc) 5 mg PO DAILY [facility] Last Admin: 12/30/16 08:14 Dose: 5 mg Amlodipine Besylate (Norvasc) 5 mg PO ONETIME ONE Stop: 12/27/16 21:01 Last Admin: 12/27/16 21:03 Dose: 5 mg Atenolol (Tenormin) 25 mg PO DAILY [facility] Last Admin: 12/30/16 08:14 Dose: 25 mg Bisacodyl (Dulcolax) 5 mg PO DAILY PRN PRN Reason: Constipation Last Admin: 12/30/16 06:29 Dose: 5 mg Bupivacaine HCl (Marcaine 0.25%) Confirm Administered Dose 30 ml .ROUTE .STK- MED ONE Stop: 12/27/16 09:53 Last Admin: 12/27/16 13:46 Dose: 30 ml Calcium Carbonate/Glycine (Tums) 1,000 mg PO TID [facility] Last Admin: 12/30/16 08:14 Dose: 1,000 mg Cefazolin Sodium (Ancef) Confirm Administered Dose 2 gm .ROUTE .STK-MED ONE Stop: 12/27/16 09:53 Last Admin: 12/27/16 13:40 Dose: 2 gm Clonidine HCl (Duraclon) Confirm Administered Dose 1,000 mcg .ROUTE .STK-MED ONE Stop: 12/27/16 16:10 Morphine Sulfate 8 mg/Epinephrine HCl 0.3 mg/Cefuroxime Sodium 750 mg/Ketorolac Tromethamine 30 mg/Sodium Chloride 27.9 ml 0 mg .XX ONETIME ONE Stop: 07/26/16 07:01 Morphine Sulfate 8 mg/Epinephrine HCl 0.3 mg/Cefuroxime Sodium 750 mg/Ketorolac Tromethamine 30 mg/Sodium Chloride 27.9 ml 0 mg .XX ONETIME ONE Stop: 12/27/16 11:31 Last Admin: 12/27/16 13:45 Dose: 788.3 mg Docusate Sodium (Colace) 100 mg PO BID [facility] Last Admin: 12/30/16 08:14 Dose: 100 mg Enoxaparin Sodium (Lovenox) 30 mg SUBCUT DAILY [facility] Last Admin: 12/30/16 08:15 Dose: 30 mg Famotidine (Pepcid) 20 mg PO Q12HR [facility] Last Admin: 12/28/16 09:15 Dose: 20 mg Fentanyl (Sublimaze) Confirm Administered Dose 100 mcg .ROUTE .STK-MED ONE Stop: 12/27/16 12:59 Fentanyl (Sublimaze) 50 mcg IVPUSH Q5M PRN PRN Reason: Pain Stop: 12/27/16 18:00 Last Admin: 12/27/16 15:27 Dose: 50 mcg Fentanyl (Sublimaze) Confirm Administered Dose 250 mcg .ROUTE .STK-MED ONE Stop: 12/27/16 15:08 Ferrous Sulfate (Ferrous Sulfate) 325 mg PO DAILY [facility] Last Admin: 12/30/16 08:13 Dose: 325 mg Hydralazine HCl (Apresoline) 20 mg IVPUSH Q6H PRN PRN Reason: Hypertension Hydromorphone HCl (Dilaudid) 0.5 mg IVPUSH Q15M PRN PRN Reason: severe pain Stop: 12/27/16 15:56 Last Admin: 12/27/16 16:14 Dose: 0.5 mg Lactated Ringer's (Ringers, Lactated) 1,000 mls @ 125 mls/hr IV ASDIRECTED [facility] Stop: 12/27/16 23:00 Last Admin: 12/27/16 16:51 Dose: 125 mls/hr Vancomycin HCl 1 gm/ Sodium (Chloride) 250 mls @ 250 mls/hr IV ONETIME ONE Stop: 12/27/16 10:59 Last Admin: 12/27/16 10:05 Dose: 250 mls/hr Lidocaine HCl (Xylocaine-Mpf 1%) Confirm Administered Dose 2 mls @ as directed .ROUTE .STK-MED ONE Stop: 12/27/16 10:38 Lidocaine HCl (Xylocaine-Mpf 1%) Confirm Administered Dose 2 mls @ as directed .ROUTE .STK-MED ONE Stop: 12/27/16 12:48 Lactated Ringer's (Ringers, Lactated) Confirm Administered Dose 1,000 mls @ as directed .ROUTE .STK-MED ONE Stop: 12/27/16 13:08 Acetaminophen (Ofirmev) 100 mls @ 400 mls/hr IV NOW ONE Stop: 12/27/16 15:08 Last Admin: 12/27/16 15:04 Dose: 400 mls/hr Cefazolin Sodium/Dextrose 2 gm (/ Premix) 50 mls @ 100 mls/hr IV Q8H [facility] Stop: 12/28/16 10:29 Last Admin: 12/28/16 09:11 Dose: 100 mls/hr Vancomycin HCl 1 gm/ Sodium (Chloride) 250 mls @ 250 mls/hr IV Q12H [facility] Stop: 12/28/16 22:59 Last Admin: 12/28/16 21:43 Dose: 250 mls/hr Lactated Ringer's (Ringers, Lactated) 250 mls @ 999 mls/hr IV ONETIME ONE Stop: 12/27/16 20:44 Last Admin: 12/27/16 20:49 Dose: 999 mls/hr Lactated Ringer's (Ringers, Lactated) 1,000 mls @ 70 mls/hr IV ASDIRECTED [facility] Last Admin: 12/29/16 00:18 Dose: 70 mls/hr Iodine (Iodine 2% Mild Tincture) Confirm Administered Dose 30 ml .ROUTE .STK- MED ONE Stop: 12/27/16 09:53 Last Admin: 12/27/16 13:38 Dose: 18 ml Ketamine HCl (Ketalar) Confirm Administered Dose 500 mg .ROUTE .STK-MED ONE Stop: 12/27/16 13:14 Ketorolac Tromethamine (Toradol) 15 mg IVPUSH ONETIME [facility] Stop: 12/27/16 18:00 Last Admin: 12/27/16 15:35 Dose: 15 mg Levothyroxine Sodium (Levothyroxine) 112 mcg PO ACBRK [facility] Last Admin: 12/30/16 06:29 Dose: 112 mcg Lidocaine/Sodium Bicarbonate (Buffered Lidocaine 1% In Ns 8.4%) 0.25 ml IV ONETIME PRN PRN Reason: Prior to IV Start Stop: 12/27/16 18:00 Last Admin: 12/27/16 10:01 Dose: 0.25 ml Losartan Potassium (Cozaar) 50 mg PO DAILY [facility] Last Admin: 12/30/16 08:13 Dose: 50 mg Magnesium Hydroxide (Milk Of Magnesia) 30 ml PO BID PRN PRN Reason: Constipation Metoclopramide HCl (Reglan) 10 mg IVPUSH Q6H [facility] Metoclopramide HCl (Reglan) 5 mg IVPUSH Q6H [facility] Last Admin: 12/29/16 03:19 Dose: 5 mg Metoclopramide HCl (Reglan) 5 mg IVPUSH Q6H PRN PRN Reason: Nausea/Vomiting Miscellaneous Information (Remove Patch) 1 ea TRDERM Q72H PRN PRN Reason: removal Morphine Sulfate (Morphine) 2 mg IVPUSH Q2H PRN PRN Reason: Breakthrough Pain Multivitamins (Thera) 1 each PO WITHBREAKFAST [facility] Last Admin: 12/30/16 06:29 Dose: 1 each Naloxone HCl (Narcan) 0.1 mg IVPUSH Q5M PRN PRN Reason: Oversedation Stop: 12/27/16 15:29 Ondansetron HCl (Zofran) 4 mg IVPUSH Q6H PRN PRN Reason: Nausea/Vomiting Oxycodone/Acetaminophen (Percocet 325-5 Mg) 1 - 2 tab PO Q4H PRN PRN Reason: Pain Oxycodone/Acetaminophen (Percocet 325-5 Mg) 1 - 2 tab PO Q4H PRN PRN Reason: Pain Last Admin: 12/29/16 03:15 Dose: 2 tab Pantoprazole Sodium (Protonix) 40 mg PO DAILY@0700 [facility] Last Admin: 12/30/16 06:29 Dose: 40 mg Chondroitin/ (Glucosamine Tabs) 0 each PO DAILY [facility] Last Admin: 12/30/16 08:15 Dose: Not Given D-Mannose [Mannose] (Tablets) 0 each PO DAILY [facility] Last Admin: 12/30/16 08:15 Dose: Not Given Potassium Chloride (Klor-Con M20) 40 meq PO ONETIME ONE Stop: 12/30/16 07:19 Last Admin: 12/30/16 08:14 Dose: 40 meq Propofol (Diprivan 20 Ml) Confirm Administered Dose 200 mg .ROUTE .STK-MED ONE Stop: 12/27/16 10:36 Propofol (Diprivan 20 Ml) Confirm Administered Dose 200 mg .ROUTE .STK-MED ONE Stop: 12/27/16 14:05 Rivaroxaban (Xarelto) 10 mg PO DAILY [facility] Scopolamine (Transderm-Scop) 1.5 mg TRDERM Q72H PRN PRN Reason: Nausea Last Admin: 12/27/16 20:53 Dose: 1.5 mg Senna (Senna) 8.6 mg PO BID PRN PRN Reason: Constipation Simvastatin (Zocor) 20 mg PO DAILY [facility] Last Admin: 12/30/16 08:14 Dose: 20 mg Sodium Chloride (Saline Flush) 10 ml FLUSH ASDIRECTED PRN PRN Reason: Keep Vein Open Stop: 12/27/16 18:00 Terazosin HCl (Hytrin) 2 mg PO ONETIME ONE Stop: 12/27/16 20:58 Last Admin: 12/27/16 21:59 Dose: Not Given Tranexamic Acid (Cyklokapron) Confirm Administered Dose 1,000 mg .ROUTE .STK- MED ONE Stop: 12/27/16 09:53 Last Admin: 12/27/16 13:48 Dose: 1,000 mg Vancomycin HCl (Pharmacy To Dose - Vancomycin) 1 dose .XX ASDIRECTED [facility] Stop: 12/29/16 15:16 *Q Meaningful Use (DIS) - VTE *Q VTE Criteria *Q: - Stroke *Q Stroke Criteria *Q: - AMI *Q AMI Criteria *Q:
--- NOTE | 2017-01-03 09:38 | OR ---
DATE OF OPERATION: 12/27/2016 SURGEON: Chan Ingram MD OPERATION PERFORMED: Left total knee arthroplasty. PREOPERATIVE DIAGNOSIS: Left knee osteoarthrosis. POSTOPERATIVE DIAGNOSIS: Left knee osteoarthrosis. ANESTHESIA: Please see anesthesia records. ANESTHESIA PROVIDER: CULLET WASHER: Oneyda Loredo PA-C and Collette Gonzales LPN. ESTIMATED BLOOD LOSS: 200 mL. COMPLICATIONS: None. CONDITION: Stable. IMPLANTS: 1. Edda size 4 PS femur. 2. [place] size 3 universal tibial baseplate. 3. Edda size 3, 9 mm PS X3 polyethylene. 4. [place] 32 x 10 mm asymmetric patella. DESCRIPTION OF PROCEDURE: The patient was identified in the preop holding area. Proper site was marked and identified by the surgeon. The patient was taken back to the operating theater. After adequate anesthesia, the patient's left lower extremity had a nonsterile tourniquet applied and it was then sterilely prepped and draped in the usual sterile fashion. OR timeout was performed. The patient received 2 g IV Ancef. At this time, left lower extremity was exsanguinated. Tourniquet was insufflated to 300 mmHg. Standard medial parapatellar incision was made. Medial parapatellar arthrotomy was created. Deep fibers of the MCL were raised and anterior fat pad was resected. At this time, attention was turned to the patella. Patella measured 23, it was resected to a 13 for a 32 x 10 mm patella. Drill holes were then drilled and found to be in adequate position. The drill was then drilled in the distal femur and the intramedullary distal femoral cutting guide was then placed. 8 mm was resected off the distal femur and was found to be an adequate resection. Sizing guide was placed. It was found to be a size 4 PS femur that was shown on the implant record at the beginning of this dictation. The drill holes were drilled for the epicondylar axis using [place] line and epicondyles as reference. At this time, the 4-in-1 cutting block was placed. An anterior posterior and anterior and posterior chamfer cuts were then completed. The correct size box cut was then placed and the box cut was completed and found to be an adequate resection. Attention was turned to the tibia. The posterior medial lateral retractors were placed. The extramedullary tibial guide was placed. It was placed in the old footprint of the ACL. It was aligned with the center of the ankle and 0 degrees of slope, 9 mm was then resected off the unaffected lateral side. There was found to be an acceptable reduction. At this time, posterior osteophytes were removed along with medial and lateral meniscus. A trial implant was placed with a correct sized tibia that was mentioned at the beginning of the dictation. A 9-mm trial spacer was placed and a 9 mm X3 PS polyethylene was then placed. The patient's knee was brought through range of motion. The patella was tracking centrally and was stable to varus and valgus stress. Alignment was found to be roughly at 0 degrees. At this time, cement was mixed on the back table. The tibia was stamped and drilled in proper rotation. All cut surfaces were irrigated with pulse lavage irrigation with Ancef and then completely dried. Once this was completed, then the cement was ready. The universal tibial base plate was cemented in place. Next, the size 4 PS femur cemented into place and the 9 mm PS X3 polyethylene was placed. The patient's knee was brought into full extension. Excess cement was removed. The patella was then cemented in place at this time. Tourniquet was deflated. One liter dilute Betadine solution was irrigated through the knee along with 3 L of pulse lavage irrigation with Ancef. Periarticular injection was then completed. The patient's knee was brought through a range of motion. Once the cement had time to set up and it was found to be stable to varus valgus stress, the patella was tracking centrally with full range of motion. At this time, a #2 barbed suture was used for closure of the medial parapatellar arthrotomy. Topical tranexamic acid was placed. 2-0 Vicryl was used subcutaneously, a running 3-0 Monocryl was used subcuticularly. The patient tolerated the procedure well and was sent to the PACU in stable condition. CHELI /[id number]
== END 2016-12-30 11:52 | DRG 470 ==
LOC: JD.MS 12-27 09:13
PROVIDERS: ADMIT Orthopaedic Surgery; ATTEND Orthopaedic Surgery
PROC: 0SRD0J9 Replacement of Left Knee Joint with Synthetic Substitute, Cemented, Open Approach (ICD-10-PCS; principal; 2016-12-27)
DX: M17.12 Unilateral primary osteoarthritis, left knee (principal); D50.9 Iron deficiency anemia, unspecified; K21.9 Gastro-esophageal reflux disease without esophagitis; I10 Essential (primary) hypertension; E78.00 Pure hypercholesterolemia, unspecified; E03.8 Other specified hypothyroidism; N32.81 Overactive bladder; M18.11 Unilateral primary osteoarthritis of first carpometacarpal joint, right hand; Z88.1 Allergy status to other antibiotic agents; Z79.82 Long term (current) use of aspirin; Z79.899 Other long term (current) drug therapy; I25.2 Old myocardial infarction; Z86.73 Personal history of transient ischemic attack (TIA), and cerebral infarction without residual deficits; E78.5 Hyperlipidemia, unspecified; Z87.440 Personal history of urinary (tract) infections; Z95.1 Presence of aortocoronary bypass graft
CPT/HCPCS: 01402; 36415; 73560-26-LT; 73560-LT; 80048; 80053; 85025; 87641; 97110-GP; 97116-GP; 97162-GP; 97166-GO; 97535-GO; 99222; 99231; 99232; A9270-GY; C1713; C1776; J0171; J0690; J0697; J0735; J1170; J1650; J1885; J2270; J2704; J2765; J3010; J3370; J3490; J7050; J7120

== ENCOUNTER 2017-11-29 21:14 | Inpatient (IN) | payer MEDICARE, OTHER ==
[2017-11-29] MEDS ORDERED: Sodium Chloride 0.9% 10 ML Syringe FLUSH PRN (21:27)
[2017-11-29] MEDS ORDERED: fentaNYL 100 MCG/2 ML SDV IVPUSH ONE ×3 (21:28→23:13)
[2017-11-30] MEDS ORDERED: HYDROmorphone 0.5 MG/0.5 ML SYRINGE IVPUSH ONE (00:17)
--- NOTE | 2017-11-30 00:49 | EDM.PDOC ---
ED HPI GENERAL MEDICAL PROBLEM - General Chief Complaint: Upper Extremity Injury/Pain Stated Complaint: [facility] Time Seen by Provider: 11/29/17 21:16 Source of Information: Reports: Patient, EMS, Family History Limitations: Reports: No Limitations - History of Present Illness INITIAL COMMENTS - FREE TEXT/NARRATIVE: The patient lives at [facility]. She tripped on her walker and landed on her right shoulder. She denies any other injury. She did not hit her head or hurt her neck. She has no chest pain or abdominal pain. She does have right hip pain but that is normal for her. She was going to go to [facility] tomorrow to get an injection in that hip. Onset: Sudden Duration: Minutes: Location: Reports: Upper Extremity, Right (Shoulder) Quality: Reports: Sharp Severity: Severe Improves with: Reports: Immobilization Worsens with: Reports: Movement Context: Reports: Trauma (She tripped on her walker) Associated Symptoms: Reports: No Other Symptoms right shoulder Pain Score (Numeric/FACES): 10 - Related Data Allergies Allergy/AdvReac Type Severity Reaction Status Date / Time sulfamethoxazole Allergy Rash Verified 11/29/17 21:20 [From Bactrim] trimethoprim [From Bactrim] Allergy Rash Verified 11/29/17 21:20 Home Meds: Home Meds Atenolol 25 mg PO DAILY 03/08/14 [History] Calcium Carbonate [Calcium] 1,200 mg PO TID 03/08/14 [History] Glucosamine/Chondroitin Sulf A [Glucosamine Chondroitin Cap] 1 each PO DAILY [History] Irbesartan [Avapro] 150 mg PO DAILY 03/08/14 [History] Levothyroxine Sodium [Synthroid] 125 mcg PO DAILY 03/08/14 [History] Simvastatin [Zocor] 20 mg PO DAILY 03/08/14 [History] amLODIPine [Norvasc] 5 mg PO DAILY 03/08/14 [History] Pantoprazole [ProTONIX] 40 mg PO DAILY 04/04/15 [History] Aspirin [Ecotrin] 81 mg PO Q48H 04/07/15 [History] D-Mannose [Mannose] 1 tab PO TID 12/24/16 [History] Multivit-Min/FA/Lycopene/Lut [Centrum Silver Tablet] 1 each PO DAILY 12/24/16 [ History] Aspirin [Ecotrin] 162 mg PO Q48H 12/28/16 [History] [place]-3/DHA/Epa/Fish Oil [Fish Oil 500 MG Softgel] 1 tab PO BID 12/28/16 [ History] Acetaminophen/HYDROcodone [[place] 325-5 MG] 1 - 2 tab PO Q4H PRN #60 tablet 12/30 [Rx] Bisacodyl [Dulcolax] 5 mg PO DAILY PRN #0 tablet 12/30/16 [Rx] Magnesium Hydroxide [Milk of Magnesia] 30 ml PO BID PRN #0 cup 12/30/16 [Rx] Ferrous Sulfate [Iron] 27 mg PO BID 11/29/17 [History] Past Medical History HEENT History: Reports: None Other HEENT History: wears eyeglasses Cardiovascular History: Reports: Bypass, CAD, High Cholesterol, Hypertension, DC Respiratory History: Reports: None Gastrointestinal History: Reports: GERD, Irritable Bowel Syndrome, PUD Other Gastrointestinal History: perforated ulcer 2009 Genitourinary History: Reports: Retention, Urinary, Urinary Incontinence, UTI, Recurrent Other Genitourinary History: Urinary urgency, nocturia [employer] History: Reports: Musculoskeletal History: Reports: Arthritis, Osteoarthritis Other Musculoskeletal History: Right shoulder pain Neurological History: Reports: CVA Psychiatric History: Reports: None Endocrine/Metabolic History: Reports: Hypothyroidism Hematologic History: Reports: Anemia, Iron Deficiency Immunologic History: Reports: None Oncologic (Cancer) History: Reports: Other (See Below) Other Oncologic History: Skin neoplasm Dermatologic History: Other Dermatologic History: Skin neoplasm - Infectious Disease History Infectious Disease History: Reports: MRSA - Past Surgical History HEENT Surgical History: Reports: Cataract Surgery, Tonsillectomy Cardiovascular Surgical History: Reports: Carotid Endarterectomy, Coronary Artery Bypass Respiratory Surgical History: Reports: None GI Surgical History: Reports: None Female Surgical History: Reports: None Endocrine Surgical History: Reports: None Neurological Surgical History: Reports: None Musculoskeletal Surgical History: Reports: Knee Replacement, Other (See Below) Other Musculoskeletal Surgeries/Procedures:: Low back surgery. Left Knee Oncologic Surgical History: Reports: None Dermatological Surgical History: Reports: None Social & Family History - Family History Family Medical History: Noncontributory - Tobacco Use Smoking Status *Q: Never Smoker Second Hand Smoke Exposure: No - Caffeine Use Caffeine Use: Reports: Coffee Other Caffeine Use: daily cup - Recreational Drug Use Recreational Drug Use: No - Living Situation & Occupation Living situation: Reports: Single Occupation: Retired Review of Systems - Review of Systems Review Of Systems: See Below Constitutional: Reports: No Symptoms Eyes: Reports: No Symptoms Ears: Reports: No Symptoms Nose: Reports: No Symptoms Mouth/Throat: Reports: No Symptoms Respiratory: Reports: No Symptoms Cardiovascular: Reports: No Symptoms GI/Abdominal: Reports: No Symptoms Genitourinary: Reports: No Symptoms Musculoskeletal: Reports: Shoulder Pain, Other (right hip pain) Skin: Reports: No Symptoms Neurological: Reports: No Symptoms ED EXAM, GENERAL - Physical Exam Exam: See Below Exam Limited By: No Limitations General Appearance: Alert, No Apparent Distress Ears: Normal External Exam Nose: Normal Inspection Head: Atraumatic, Normocephalic Neck: Normal Inspection Respiratory/Chest: No Respiratory Distress, Lungs Clear, Normal Breath Sounds Cardiovascular: Regular Rate, Rhythm, No Edema, No Murmur GI/Abdominal: Soft, Non-Tender, No Organomegaly, No Mass Extremities: Other (Pain upon palpation and edema to the upper arm. Good sensation and pulses distally) Course - Vital Signs Last Recorded V/S: Last Vital Signs Temp 96.2 F 11/29/17 21:17 Pulse 61 11/29/17 21:17 Resp 18 11/29/17 21:17 BP 178/51 H 11/29/17 21:17 Pulse Ox 96 11/30/17 00:54 - Orders/Labs/Meds Orders: Active Orders 24 hr Category Date Time Status Patient Status [ADT] Routine ADT 11/30/17 00:43 Active Oxygen Therapy Adult [Oxygen Therapy, ED] [RC] Care 11/30/17 00:39 Active ASDIRECTED Peripheral IV Care [RC] Q2HR Care 11/29/17 21:27 Active Shoulder Comp Rt [CR] Stat Exams 11/29/17 21:46 Taken Sodium Chloride 0.9% [Saline Flush] Med 11/29/17 21:27 Active 10 ml FLUSH ASDIRECTED PRN Durable Medical Equipment for Discharge [DME for Oth 11/29/17 23:13 Ordered Discharge] [COMM] Stat Peripheral IV Insertion Adult [OM.PC] Routine Oth 11/29/17 21:27 Ordered Medication Orders Sodium Chloride (Saline Flush) 10 ml FLUSH ASDIRECTED PRN PRN Reason: Keep Vein Open Last Admin: 11/29/17 21:36 Dose: 10 ml Meds: Medications Generic Name Dose Route Start Last Admin Trade Name Freq PRN Reason Stop Dose Admin Sodium Chloride 10 ml 11/29/17 21:27 11/29/17 21:36 Saline Flush FLUSH 10 ml ASDIRECTED PRN Administration Keep Vein Open Discontinued Medications Generic Name Dose Route Start Last Admin Trade Name Freq PRN Reason Stop Dose Admin Fentanyl 25 mcg 11/29/17 21:28 11/29/17 21:33 Sublimaze IVPUSH 11/29/17 21:29 25 mcg ONETIME ONE Administration Fentanyl 25 mcg 11/29/17 22:35 11/29/17 22:39 Sublimaze IVPUSH 11/29/17 22:36 25 mcg ONETIME ONE Administration Fentanyl 50 mcg 11/29/17 23:13 11/29/17 23:21 Sublimaze IVPUSH 11/29/17 23:14 50 mcg ONETIME ONE Administration Hydromorphone HCl 0.5 mg 11/30/17 00:17 11/30/17 00:22 Dilaudid IVPUSH 11/30/17 00:18 0.5 mg ONETIME ONE Administration - Re-Assessments/Exams Free Text/Narrative Re-Assessment/Exam: 11/30/17 00:48 The patient had an IV in. I ordered more fentanyl. Her x-ray shows a proximal humerus fracture. She needed more fentanyl for pain. I then tried some dilaudid for pain. I put a shoulder immobilizer on her shoulder. She is having intractable pain. I feel she needs to be admitted. I called Dr Lazar and he agreed to the admission. I also talked with Dr Ingram and he said there is nothing surgical he would do for her. Departure - Departure Time of Disposition: 01:10 Disposition: Admitted As Inpatient 66 Condition: Good Clinical Impression: Right hip pain, Arthritis of right hip Fall Qualifiers: Encounter type: initial encounter Qualified Code(s): W19.XXXA - Unspecified fall, initial encounter Proximal humerus fracture Qualifiers: Encounter type: initial encounter Fracture type: closed Fracture morphology: unspecified fracture morphology Laterality: right Qualified Code(s): S42.201A - Unspecified fracture of upper end of right humerus, initial encounter for closed fracture - Discharge Information - My Orders Last 24 Hours: My Active Orders 11/29/17 21:27 Peripheral IV Care [RC] Q2HR Sodium Chloride 0.9% [Saline Flush] 10 ml FLUSH ASDIRECTED PRN Peripheral IV Insertion Adult [OM.PC] Routine 11/29/17 21:46 Shoulder Comp Rt [CR] Stat 11/29/17 23:13 Durable Medical Equipment for Discharge [DME for Discharge] [COMM] Stat 11/30/17 00:39 Oxygen Therapy Adult [Oxygen Therapy, ED] [RC] ASDIRECTED 11/30/17 00:43 Patient Status [ADT] Routine - Assessment/Plan Last 24 Hours: My Active Orders 11/29/17 21:27 Peripheral IV Care [RC] Q2HR Sodium Chloride 0.9% [Saline Flush] 10 ml FLUSH ASDIRECTED PRN Peripheral IV Insertion Adult [OM.PC] Routine 11/29/17 21:46 Shoulder Comp Rt [CR] Stat 11/29/17 23:13 Durable Medical Equipment for Discharge [DME for Discharge] [COMM] Stat 11/30/17 00:39 Oxygen Therapy Adult [Oxygen Therapy, ED] [RC] ASDIRECTED 11/30/17 00:43 Patient Status [ADT] Routine
[2017-11-30] MEDS: HYDROmorphone 0.5 MG/0.5 ML SYRINGE IVPUSH PRN ×7 (01:40→17:22)
[2017-11-30] MEDS ORDERED: Bisacodyl 5 MG Tab PO PRN (04:59)
[2017-11-30] MEDS ORDERED: Magnesium Hydroxide 400 MG/5 ML Susp 30 ML Cup PO PRN (05:01)
[2017-11-30] MEDS ORDERED: LORazepam 2 MG/ML SDV IVPUSH PRN (05:03)
[2017-11-30] MEDS ORDERED: Metoprolol Tartrate 5 MG/5 ML SDV IVPUSH PRN (05:03)
[2017-11-30] MEDS ORDERED: Promethazine 6.25 MG in Sodium Chloride 0.9% 50 ML IV PRN (05:07)
[2017-11-30] MEDS ORDERED: Polyethylene Glycol 3350 Powder 17 GM Packet PO PRN (05:07)
[2017-11-30] MEDS ORDERED: HYDROmorphone 0.5 MG/0.5 ML SYRINGE IVPUSH PRN (05:07)
[2017-11-30] MEDS ORDERED: Albuterol/Ipratropium 3.0-0.5 MG/3 ML Neb Soln NEB PRN (05:07)
[2017-11-30] MEDS ORDERED: Acetaminophen/HYDROcodone 325-5 MG Tab PO PRN (05:07)
[2017-11-30] MEDS ORDERED: Acetaminophen 325 MG Tab PO PRN (05:07)
[2017-11-30] MEDS ORDERED: Docusate Sodium 100 MG Cap PO PRN (05:07)
[2017-11-30] MEDS ORDERED: LORazepam 2 MG/ML SDV IV PRN (05:07)
[2017-11-30] MEDS: Ondansetron 4 MG/2 ML SDV IV PRN ×2 (06:07→14:18)
[2017-11-30] MEDS: hydrALAZINE 20 MG/ML SDV IVPUSH PRN ×2 (06:07→20:38)
--- NOTE | 2017-11-30 08:23 | CR ---
Right shoulder: Three views of the right shoulder were obtained. Comparison: Previous right shoulder exam of 03/08/16. Fracture is identified within the surgical neck and as well as at the base of the greater tuberosity. Mild displacement is seen up to 8 mm. Bony structures are osteopenic. No additional abnormality is seen. Impression: 1. Right proximal humeral fracture as described above. Diagnostic code #3 Agree with preliminary report issued by [facility] ([facility] preliminary report dictated on 11/29/17, 11:58 PM Central Time)
--- NOTE | 2017-11-30 08:56 | PCM.HP ---
H&P History of Present Illness - General Date of Service: 11/30/17 Admit Problem/Dx: Admission Diagnosis/Problem Admission Diagnosis/Problem Intractable pain Source of Information: Patient, Old Records History Limitations: Reports: No Limitations (There does not appear to be any altered mental status but she is quite fatigued ) - History of Present Illness Initial Comments - Free Text/Narative: This is an 87 y/o female with PMHx significant for CAD s/p NM and CABG, CEA, HLD , HTN, GERD, IBS, PUD with perforated ulcer in 2009, urinary retention and incontinence, recurrent UTI, OA, CVA, hypothyroidism, iron deficiency anemia, and hx of MRSA who comes in for right shoulder injury. She was admitted from the ED. Patient reports shoulder pain, hip pain (chronic). She denies chest pain , headache, or any GI/ complaints. X-ray ordered in ED read as follows: humeral neck fracture is present which extends into the humeral head; fracture is impacted and angulated; no glenohumeral dislocation and the acromioclavicular joint anatomic. She is a nonoperative patient. ED placed shoulder immobilizer. Patient received Fentanyl and Diluadid in ED. She is also on NC 2L presently. EKG performed inpatient shows NSR. She was admitted for intractable pain. Patient is a resident of [facility]. She reports that she was using her walker and tripped and landed on her right shoulder. Denies LOC or hitting her head during the fall. She states that she does not normally use oxygen at home. She is subsequently admitted to the Med/Surg with Tele. She is a never smoker. She is a full code. PCP is Dr. Lv Bowling. right shoulder Pain Score (Numeric/FACES): 7 - Related Data Allergies/Adverse Reactions: Allergies Allergy/AdvReac Type Severity Reaction Status Date / Time sulfamethoxazole Allergy Rash Verified 11/29/17 21:20 [From Bactrim] trimethoprim [From Bactrim] Allergy Rash Verified 11/29/17 21:20 Home Medications: Home Meds Atenolol 25 mg PO DAILY 03/08/14 [History] Calcium Carbonate [Calcium] 1,200 mg PO TID 03/08/14 [History] Glucosamine/Chondroitin Sulf A [Glucosamine Chondroitin Cap] 1 each PO DAILY [History] Irbesartan [Avapro] 150 mg PO DAILY 03/08/14 [History] Levothyroxine Sodium [Synthroid] 125 mcg PO DAILY 03/08/14 [History] Simvastatin [Zocor] 20 mg PO DAILY 03/08/14 [History] amLODIPine [Norvasc] 5 mg PO DAILY 03/08/14 [History] Pantoprazole [ProTONIX] 40 mg PO DAILY 04/04/15 [History] Aspirin [Ecotrin] 81 mg PO Q48H 04/07/15 [History] D-Mannose [Mannose] 1 tab PO BID 12/24/16 [History] Multivit-Min/FA/Lycopene/Lut [Centrum Silver Tablet] 1 each PO DAILY 12/24/16 [ History] Aspirin [Ecotrin] 162 mg PO Q48H 12/28/16 [History] [place]-3/DHA/Epa/Fish Oil [Fish Oil 500 MG Softgel] 1 tab PO BID 12/28/16 [ History] Ferrous Sulfate [Iron] 27 mg PO BID 11/29/17 [History] Past Medical History HEENT History: Reports: None Other HEENT History: wears eyeglasses Cardiovascular History: Reports: Bypass, CAD, High Cholesterol, Hypertension, NM Respiratory History: Reports: None Gastrointestinal History: Reports: GERD, Irritable Bowel Syndrome, PUD Other Gastrointestinal History: perforated ulcer 2009 Genitourinary History: Reports: Retention, Urinary, Urinary Incontinence, UTI, Recurrent Other Genitourinary History: Urinary urgency, nocturia [employer] History: Reports: Musculoskeletal History: Reports: Arthritis, Osteoarthritis Other Musculoskeletal History: Right shoulder pain Neurological History: Reports: CVA Psychiatric History: Reports: None Endocrine/Metabolic History: Reports: Hypothyroidism Hematologic History: Reports: Anemia, Iron Deficiency Immunologic History: Reports: None Oncologic (Cancer) History: Reports: Other (See Below) Other Oncologic History: Skin neoplasm Dermatologic History: Other Dermatologic History: Skin neoplasm - Infectious Disease History Infectious Disease History: Reports: MRSA - Past Surgical History HEENT Surgical History: Reports: Cataract Surgery, Tonsillectomy Cardiovascular Surgical History: Reports: Carotid Endarterectomy, Coronary Artery Bypass Respiratory Surgical History: Reports: None GI Surgical History: Reports: None Female Surgical History: Reports: None Endocrine Surgical History: Reports: None Neurological Surgical History: Reports: None Musculoskeletal Surgical History: Reports: Knee Replacement, Other (See Below) Other Musculoskeletal Surgeries/Procedures:: Low back surgery. Left Knee Oncologic Surgical History: Reports: None Dermatological Surgical History: Reports: None Social & Family History - Family History Family Medical History: Noncontributory - Tobacco Use Smoking Status *Q: Never Smoker Second Hand Smoke Exposure: No - Caffeine Use Caffeine Use: Reports: Coffee Other Caffeine Use: daily cup - Recreational Drug Use Recreational Drug Use: No - Living Situation & Occupation Living situation: Reports: Single Occupation: Retired H&P Review of Systems - Review of Systems: Review Of Systems: See Below General: Reports: No Symptoms, Other (Reports pain -03/29 ). Denies: Fever, Chills HEENT: Reports: No Symptoms. Denies: Headaches, Sore Throat Pulmonary: Reports: No Symptoms, Shortness of Breath. Denies: Cough Cardiovascular: Reports: No Symptoms, Lightheadedness. Denies: Chest Pain, Edema Gastrointestinal: Reports: No Symptoms. Denies: Abdominal Pain, Constipation, Diarrhea, Nausea, Vomiting Genitourinary: Reports: No Symptoms. Denies: Dysuria, Frequency Musculoskeletal: Reports: No Symptoms, Other (Right shoulder pain, chronic right hip pain. Denies shoulder numbness or tingling.) Skin: Reports: No Symptoms. Denies: Cyanosis, Pallor Psychiatric: Reports: No Symptoms. Denies: Confusion, Depression Neurological: Reports: No Symptoms. Denies: Confusion, Dizziness, Headache Hematologic/Lymphatic: Reports: No Symptoms Immunologic: Reports: No Symptoms Exam - Exam Exam: See Below - Vital Signs Vital Signs: Last Vital Signs Temp 97.5 F 11/30/17 01:17 Pulse 62 11/30/17 05:31 Resp 16 11/30/17 05:31 BP 147/99 H 11/30/17 05:31 Pulse Ox 96 11/30/17 05:31 Weight: 166 lb 12.8 oz - Exam Quality Assessment: Supplemental Oxygen General: Alert, Oriented, Cooperative, Other (Mild fatigue present during interview. She is able to participate in interview appropriately. She is not writhing or grimacing in pain. She is laying comfortably in bed. ) HEENT: Conjunctiva Clear, EOMI, Mucosa Moist & [place] Neck: Supple. No: Lymphadenopathy Lungs: Clear to Auscultation, Normal Respiratory Effort Cardiovascular: Regular Rate, Regular Rhythm, Systolic Murmur (grade I/ ) GI/Abdominal Exam: Normal Bowel Sounds, Soft, Non-Tender, No Distention (Female) Exam: Deferred Rectal (Female) Exam: Deferred Back Exam: Normal Inspection, Decreased Range of Motion Extremities: Other (Right shoulder in sling. TTP. Pulses intact. ) Peripheral Pulses: 1+: Posterior Tibial (L), Posterior Tibial (R), Dorsalis Pedis (L), Dorsalis Pedis (R), 2+: Radial (L), Radial (R) Skin: Warm, Dry, Intact Neurological: Cranial Nerves Intact (grossly ), Sensation Intact Neuro Extensive - Mental Status: Alert, Oriented x3, Normal Mood/Affect, Normal Cognition, Memory Intact Neuro Extensive - Motor, Sensory, Reflexes: CN II-XII Intact (grossly ) Psychiatric: Alert, Normal Affect, Normal Mood - Patient Data Lab Results Last 24 hrs: Laboratory Results - last 24 hr 11/30/17 11/30/17 11/30/17 Range/Units 06:47 06:47 07:15 WBC 11.73 H (3.98-10.04) K/mm3 RBC 3.75 L (3.98-5.22) M/mm3 Hgb 11.8 (11.2-15.7) gm/L Hct 35.5 (34.1-44.9) % MCV 94.7 (79.4-94.8) fl MCH 31.5 (25.6-32.2) pg MCHC 33.2 (32.2-35.5) g/dl RDW Std Deviation 42.7 (36.4-46.3) fL Plt Count 231 (182-369) K/mm3 MPV 10.9 (9.4-12.3) fl Neut % (Auto) 78.9 H (34.0-71.1) % Lymph % (Auto) 12.9 L (19.3-51.7) % [place] % (Auto) 7.9 (4.7-12.5) % Eos % (Auto) 0 L (0.7-5.8) Baso % (Auto) 0.1 (0.1-1.2) % Neut # (Auto) 9.26 H (1.56-6.13) K/mm3 Lymph # (Auto) 1.51 (1.18-3.74) K/mm3 [place] # (Auto) 0.93 H (0.24-0.36) K/mm3 Eos # (Auto) 0.00 L (0.04-0.36) K/mm3 Baso # (Auto) 0.01 (0.01-0.08) K/mm3 Sodium 139 (136-145) mEq/L Potassium 4.2 (3.5-5.1) mEq/L Chloride 105 (98-107) mEq/L Carbon Dioxide 26 (21-32) mEq/L Anion Gap 12.2 (5-15) BUN 28 H (7-18) mg/dL Creatinine 1.1 H (0.55-1.02) mg/dL Est Cr Clr Drug Dosing 28.50 mL/min Estimated GFR (MDRD) 47 (>60) mL/min BUN/Creatinine Ratio 25.5 H (14-18) Glucose 165 H (83-115) mg/dL Calcium 9.9 (8.5-10.1) mg/dL Magnesium 2.0 (1.8-2.4) mg/dl Free T4 1.07 (0.76-1.46) ng/dL TSH 3rd Generation 3.092 (0.358-3.74) uIU/mL Urine Color Yellow (Yellow) Urine Appearance Clear (Clear) Urine pH 7.0 (5.0-8.0) Ur Specific [place] 1.025 (1.005-1.030) Urine Protein 1+ H (Negative) Urine Glucose (UA) Negative (Negative) Urine Ketones Negative (Negative) Urine Occult Blood Negative (Negative) Urine Nitrite Negative (Negative) Urine Bilirubin Negative (Negative) Urine Urobilinogen 0.2 (0.2-1.0) Ur Leukocyte Esterase Negative (Negative) Urine RBC Not seen (0-5) /hpf Urine WBC 0-5 (0-5) /hpf Ur Epithelial Cells 0-5 (0-5) /hpf Urine Bacteria Few (FEW) /hpf Hyaline Casts 0-5 (0-5) /lpf Urine Mucus Moderate H (FEW) /hpf Result Diagrams: 11/30/17 06:47 11/30/17 06:47 Problem List Initiated/Reviewed/Updated: Yes Orders Last 24hrs: Active Orders 24 hr Category Date Time Status Patient Status [ADT] Routine ADT 11/30/17 00:43 Active Cardiac Monitoring [RC] INTERMITTENT Care 11/30/17 05:08 Active EKG 12 Lead [EKG Documentation Completion] [RC] AM Care 11/30/17 08:00 Active Height and Weight [RC] 04 Care 11/30/17 05:07 Active Intake and Output [RC] 04,16 Care 11/30/17 05:07 Active Oxygen Therapy [RC] ASDIRECTED Care 11/30/17 01:21 Active Peripheral IV Care [RC] Q2HR Care 11/29/17 21:27 Active RT Aerosol Therapy [RC] ASDIRECTED Care 11/30/17 05:10 Active Up With Assistance [RC] ASDIRECTED Care 11/30/17 01:21 Active VTE/DVT Education [RC] QSHIFT Care 11/30/17 05:07 Active Vital Signs [RC] Q4HR Care 11/30/17 05:07 Active Consult to Case Management [CONS] Routine Cons 11/30/17 05:11 Active Consult to Pantograph Operator [CONS] Routine Cons 11/30/17 05:11 Active Consult to Spiritual Care [CONS] Routine Cons 11/30/17 05:11 Active OT Evaluation and Treatment [CONS] Routine Cons 11/30/17 01:21 Active PT Evaluation and Treatment [CONS] Routine Cons 11/30/17 01:21 Active Regular Diet [DIET] Diet 11/30/17 Breakfast Active BASIC METABOLIC PANEL,BMP [CHEM] AM Lab 12/01/17 05:11 Ordered BASIC METABOLIC PANEL,BMP [CHEM] AM Lab 12/02/17 05:11 Ordered BASIC METABOLIC PANEL,BMP [CHEM] AM Lab 12/03/17 05:11 Ordered BASIC METABOLIC PANEL,BMP [CHEM] AM Lab 12/04/17 05:11 Ordered BASIC METABOLIC PANEL,BMP [CHEM] AM Lab 12/05/17 05:11 Ordered CBC WITH AUTO DIFF [HEME] AM Lab 12/01/17 05:11 Ordered CBC WITH AUTO DIFF [HEME] AM Lab 12/02/17 05:11 Ordered CBC WITH AUTO DIFF [HEME] AM Lab 12/03/17 05:11 Ordered CBC WITH AUTO DIFF [HEME] AM Lab 12/04/17 05:11 Ordered CULTURE URINE [RM] Routine Lab 11/30/17 07:15 Received MAGNESIUM [CHEM] AM Lab 12/01/17 05:11 Ordered MAGNESIUM [CHEM] AM Lab 12/02/17 05:11 Ordered MAGNESIUM [CHEM] AM Lab 12/03/17 05:11 Ordered MAGNESIUM [CHEM] AM Lab 12/04/17 05:11 Ordered MAGNESIUM [CHEM] AM Lab 12/05/17 05:11 Ordered URINALYSIS W/MICROSCOPIC [UA W/MICROSCOPIC] [URIN] Lab 11/30/17 07:15 Ordered Routine VITAMIN D 25-HYROXY (D2, D3) [REF] Routine Lab 11/30/17 06:47 Received Acetaminophen [Tylenol] Med 11/30/17 05:07 Active 650 mg PO Q4H PRN Acetaminophen/HYDROcodone [[place] 325-5 MG] Med 11/30/17 05:07 Active 1 tab PO Q4H PRN Albuterol/Ipratropium [DuoNeb 3.0-0.5 MG/3 ML] Med 11/30/17 05:07 Active 3 ml NEB Q4H PRN Atenolol [Tenormin] Med 11/30/17 09:00 Active 25 mg PO DAILY Bisacodyl [Dulcolax] Med 11/30/17 04:59 Active 5 mg PO DAILY PRN Calcium Carbonate Med 11/30/17 09:00 Active 1,200 mg PO TID Docusate Sodium [Colace] Med 11/30/17 05:07 Active 100 mg PO BID PRN Docusate Sodium/Sennosides [Senna Plus] Med 11/30/17 05:07 Active 1 tab PO BID PRN Ferrous Sulfate Med 11/30/17 09:00 Pending 27 mg PO BID Fish Oil/[place]-3 Fatty Acids [Fish Oil] Med 11/30/17 09:00 Active 1 gm PO BID HYDROmorphone [Dilaudid] Med 11/30/17 01:21 Active 0.5 mg IVPUSH Q1H PRN HYDROmorphone [Dilaudid] Med 11/30/17 05:07 Active 0.5 mg IVPUSH Q2H PRN LORazepam [Ativan] Med 11/30/17 05:07 Active 0.25 mg IV Q6H PRN LORazepam [Ativan] Med 11/30/17 05:03 Active 2 mg IVPUSH Q4H PRN Levothyroxine Med 11/30/17 06:00 Active 125 mcg PO ACBRK Losartan [Cozaar] Med 11/30/17 09:00 Active 50 mg PO DAILY Magnesium Hydroxide [Milk of Magnesia] Med 11/30/17 05:01 Active 30 ml PO BID PRN Magnesium Rep Pharmacy to Dose [Pharmacy to Dose - Med 11/30/17 05:15 Active Magnesium Replacement] 1 dose .XX ASDIRECTED Metoprolol Tartrate [Lopressor] Med 11/30/17 05:03 Active 5 mg IVPUSH Q4H PRN Multivitamins,Therapeutic [Thera] Med 11/30/17 09:00 Active 1 each PO DAILY Ondansetron [Zofran] Med 11/30/17 05:07 Active 4 mg IV Q6H PRN Pantoprazole [ProTONIX] Med 11/30/17 09:00 Active 40 mg PO DAILY Polyethylene Glycol 3350 [MiraLAX] Med 11/30/17 05:07 Active 17 gm PO DAILY PRN Potassium Rep Pharmacy to Dose [Pharmacy to Dose - Med 11/30/17 05:15 Active Potassium Replacement] 1 dose .XX ASDIRECTED Promethazine [Phenergan] 6.25 mg Med 11/30/17 05:07 Active Sodium Chloride 0.9% [Normal Saline] 50 ml IV Q6H Simvastatin [Zocor] Med 11/30/17 09:00 Active 20 mg PO DAILY Sodium Chloride 0.9% [Saline Flush] Med 11/29/17 21:27 Active 10 ml FLUSH ASDIRECTED PRN amLODIPine [Norvasc] Med 11/30/17 09:00 Active 5 mg PO DAILY hydrALAZINE [Apresoline] Med 11/30/17 05:03 Active 10 mg IVPUSH Q4H PRN Durable Medical Equipment for Discharge [DME for Oth 11/29/17 23:13 Ordered Discharge] [COMM] Stat Peripheral IV Insertion Adult [OM.PC] Routine Oth 11/29/17 21:27 Ordered Sequential Compression Device [OM.PC] Per Unit Routine Oth 11/30/17 05:08 Ordered Resuscitation Status Routine Resus Stat 11/30/17 01:21 Ordered Medication Orders Acetaminophen (Tylenol) 650 mg PO Q4H PRN PRN Reason: Pain (Mild 1-3)/fever Hydrocodone Bitart/Acetaminophen ([place] 325-5 Mg) 1 tab PO Q4H PRN PRN Reason: Pain (moderate 4-6) Last Admin: 11/30/17 06:06 Dose: 1 tab Albuterol/Ipratropium (Duoneb 3.0-0.5 Mg/3 Ml) 3 ml NEB Q4H PRN PRN Reason: Shortness Of Breath/wheezing Amlodipine Besylate (Norvasc) 5 mg PO DAILY TIFF Atenolol (Tenormin) 25 mg PO DAILY TIFF Bisacodyl (Dulcolax) 5 mg PO DAILY PRN PRN Reason: Constipation Calcium Carbonate/Glycine (Calcium Carbonate) 1,200 mg PO TID TIFF Docusate Sodium (Colace) 100 mg PO BID PRN PRN Reason: Constipation Ferrous Sulfate (Ferrous Sulfate) 27 mg PO BID TIFF Fish Oil (Fish Oil) 1 gm PO BID TIFF Hydralazine HCl (Apresoline) 10 mg IVPUSH Q4H PRN PRN Reason: Hypertension Last Admin: 11/30/17 06:07 Dose: 10 mg Hydromorphone HCl (Dilaudid) 0.5 mg IVPUSH Q1H PRN PRN Reason: pain Last Admin: 11/30/17 07:07 Dose: 0.5 mg Admin: 11/30/17 05:27 Dose: 0.5 mg Admin: 11/30/17 03:58 Dose: 0.5 mg Admin: 11/30/17 02:56 Dose: 0.5 mg Admin: 11/30/17 01:40 Dose: 0.5 mg Hydromorphone HCl (Dilaudid) 0.5 mg IVPUSH Q2H PRN PRN Reason: Pain (severe 7-10) Promethazine HCl 6.25 mg/ (Sodium Chloride) 50.25 mls @ 100 mls/hr IV Q6H PRN PRN Reason: Nausea/Vomiting Levothyroxine Sodium (Levothyroxine) 125 mcg PO ACBRK TIFF Lorazepam (Ativan) 2 mg IVPUSH Q4H PRN PRN Reason: Seizures Lorazepam (Ativan) 0.25 mg IV Q6H PRN PRN Reason: Anxiety Losartan Potassium (Cozaar) 50 mg PO DAILY TIFF Magnesium Hydroxide (Milk Of Magnesia) 30 ml PO BID PRN PRN Reason: Constipation Magnesium Sulfate (Pharmacy To Dose - Magnesium Replacement) 1 dose .XX ASDIRECTED [facility] Metoprolol Tartrate (Lopressor) 5 mg IVPUSH Q4H PRN PRN Reason: Tachycardia Multivitamins (Thera) 1 each PO DAILY [facility] Ondansetron HCl (Zofran) 4 mg IV Q6H PRN PRN Reason: Nausea/Vomiting Last Admin: 11/30/17 06:07 Dose: 4 mg Pantoprazole Sodium (Protonix) 40 mg PO DAILY [facility] Polyethylene Glycol (Miralax) 17 gm PO DAILY PRN PRN Reason: Constipation Potassium Chloride (Pharmacy To Dose - Potassium Replacement) 1 dose .XX ASDIRECTED [facility] Senna/Docusate Sodium (Senna Plus) 1 tab PO BID PRN PRN Reason: Constipation Simvastatin (Zocor) 20 mg PO DAILY [facility] Sodium Chloride (Saline Flush) 10 ml FLUSH ASDIRECTED PRN PRN Reason: Keep Vein Open Last Admin: 11/29/17 21:36 Dose: 10 ml Assessment/Plan Comment:: I/P: Acute: Right humerus fracture, nonoperative - Intractable pain in ED --> will adjust dilaudid order to dilaudid 0.5 mg q 4 hr prn pain; she will also receive [place] 325/5 1 tab po q 4 hr prn pain -she is reporting pain as 9/10 but is falling asleep during conversation and is not grimacing or writhing in bed -varying reports regarding her pain medications use at home; Pharmacy review revealed that patient does not have any active Rxs for controlled pain medications - Ortho to see prn - No known hx of osteoporosis --> will order vitamin D level Oxygen desaturations - Likely 2/2 pain and pain medications - She does not use O2 at home - Patient denies hx of COPD or heart failure - Oxygen therapy and breathing treatments ordered - Monitor --> if no improvement, consider chest xray Nausea/Vomiting - Likely 2/2 pain and pain medications - Will schedule Reglan 10 mg IV q 6 hr and continue Zofran prn Hypertension - Elevated in ED likely 2/2 pain - She is on irbesartan at home --> will receive losartan during admit - Resume other home antihypertensive Hyperglycemia - Glucose 165 today - No known hx of DM - Likely 2/2 stress response - Monitor Renal insufficiency - BUN 28, Cr 1.1, and eGFR 47 today - Appears to be close to patient's baseline - Monitor Leukocytosis - Likely 2/2 pain and inflammation - Monitor Weakness - Exacerbated by current injury and pain - Lives at [facility] - PT/OT consult Chronic: CAD s/p NM and CABG CEA HLD HTN GERD IBS PUD with perforated ulcer in 2009 Urinary retention and incontinence --> catheter has been placed Recurrent UTI --> will order UA and culture OA CVA Hypothyroidism Iron deficiency anemia Hx of MRSA --> contact precautions ordered Plan: Admitted from ED to Med/Surg with Tele Other orders as indicated above CM/SW for discharge planning Routine AM labs Will order UA and culture with hx of recurrent UTIs Continue home meds Regular diet Consult PT/OT DVT Prophylaxis: SCDs GI: Prophylasix: Continue home PPI Ambulate as tolerated Code Status: Full Code PCP: Dr. Lv Bowling
[2017-11-30] MEDS ORDERED: GLUCOSAMINE PO SCH (09:00)
[2017-11-30] MEDS ORDERED: CHONDROITIN PO SCH (09:00)
[2017-11-30] MEDS ORDERED: D MANNOSE PO SCH (09:00)
[2017-11-30] MEDS: Levothyroxine 125 MCG Tab PO SCH (10:30)
[2017-11-30] MEDS: Losartan 25 MG Tab PO SCH (10:30)
[2017-11-30] MEDS: Calcium Carbonate 600 MG Tab PO SCH ×3 (10:30→20:36)
[2017-11-30] MEDS: Atenolol 25 MG Tab PO SCH (10:31)
[2017-11-30] MEDS: amLODIPine 5 MG Tab PO SCH (10:31)
[2017-11-30] MEDS: Multivitamins,Therapeutic Tab PO SCH (10:31)
[2017-11-30] MEDS: Pantoprazole 40 MG Tab.CR PO SCH (10:31)
[2017-11-30] MEDS: Fish Oil/Omega-3 Fatty Acids 1 Gm Cap PO SCH ×2 (10:31→20:37)
[2017-11-30] MEDS: Simvastatin 20 MG Tab PO SCH (10:31)
[2017-11-30] MEDS: Metoclopramide 10 MG/2 ML SDV IVPUSH SCH ×3 (11:33→23:57)
[2017-11-30] MEDS: Acetaminophen/HYDROcodone 325-5 MG Tab PO PRN (20:37)
[2017-12-01] MEDS: Metoclopramide 10 MG/2 ML SDV IVPUSH SCH ×2 (05:55→11:59)
[2017-12-01] MEDS: Acetaminophen/HYDROcodone 325-5 MG Tab PO PRN ×2 (05:56→17:37)
[2017-12-01] MEDS: Levothyroxine 125 MCG Tab PO SCH (05:56)
[2017-12-01] MEDS: Ferrous Sulfate 325 MG Tab PO SCH ×4 (07:45→20:44)
[2017-12-01] MEDS: amLODIPine 5 MG Tab PO SCH (08:44)
[2017-12-01] MEDS: Calcium Carbonate 600 MG Tab PO SCH ×3 (08:44→20:44)
[2017-12-01] MEDS: Multivitamins,Therapeutic Tab PO SCH (08:44)
[2017-12-01] MEDS: Fish Oil/Omega-3 Fatty Acids 1 Gm Cap PO SCH ×2 (08:44→20:44)
[2017-12-01] MEDS: Pantoprazole 40 MG Tab.CR PO SCH (08:45)
[2017-12-01] MEDS: Atenolol 25 MG Tab PO SCH (08:45)
[2017-12-01] MEDS: Simvastatin 20 MG Tab PO SCH (08:45)
[2017-12-01] MEDS: Losartan 25 MG Tab PO SCH (08:45)
[2017-12-01] MEDS: HYDROmorphone 0.5 MG/0.5 ML SYRINGE IVPUSH PRN (09:27)
--- NOTE | 2017-12-01 11:15 | PCM.PN ---
- General Info Date of Service: 12/01/17 Admission Dx/Problem (Free Text): Admission Diagnosis/Problem Admission Diagnosis/Problem Intractable pain Subjective Update: In to see Bessie today. Daughter present at bedside. She is laying in bed and appears comfortable. NC 2L. She is not grimacing or writhing in pain. Nursing reports that she continues to report pain as 9/10 but is not providing any pain cues. Patient reports that her pain has improved but her should is still hurting. Nursing also reports that patient has been encouraged to walk and sit up in chair but she often just wants to lay down to rest. Patient reports her N/ V has improved. She feels slightly constipated and would like to have some prunes. She denies any shortness of breath or chest pain. Also denies any complaints. Functional Status: Reports: Pain Controlled Pain Score: 9 - Review of Systems General: Reports: No Symptoms. Denies: Fever, Fatigue HEENT: Reports: No Symptoms. Denies: Sinus Congestion, Sore Throat Pulmonary: Reports: No Symptoms. Denies: Shortness of Breath, Cough Cardiovascular: Reports: No Symptoms. Denies: Chest Pain, Palpitations, Dyspnea on Exertion, Edema Gastrointestinal: Reports: No Symptoms, Constipation (mild ). Denies: Abdominal Pain, Diarrhea, Nausea, Vomiting Genitourinary: Reports: No Symptoms. Denies: Dysuria, Frequency Musculoskeletal: Reports: No Symptoms, Shoulder Pain (proximal humerus fx ) Skin: Reports: No Symptoms. Denies: Cyanosis, Pallor Neurological: Reports: No Symptoms. Denies: Confusion, Dizziness, Headache, Numbness, Paresthesia Psychiatric: Reports: No Symptoms. Denies: Confusion, Depression - Patient Data Vitals - Most Recent: Last Vital Signs Temp 98.1 F 12/01/17 07:51 Pulse 68 12/01/17 08:45 Resp 20 12/01/17 07:51 BP 137/55 L 12/01/17 08:45 Pulse Ox 92 L 12/01/17 09:55 Weight - Most Recent: 168 lb 3.2 oz I&O - Last 24 Hours: Intake & Output 11/30/17 12/01/17 12/01/17 22:59 06:59 14:59 Intake Total 540 250 Output Total 1450 350 Balance -910 -100 Lab Results Last 24 Hours: Laboratory Results - last 24 hr 11/30/17 12/01/17 12/01/17 Range/Units 06:47 05:55 05:55 WBC 11.79 H (3.98-10.04) K/mm3 RBC 3.38 L (3.98-5.22) M/mm3 Hgb 10.8 L (11.2-15.7) gm/L Hct 32.8 L (34.1-44.9) % MCV 97.0 H (79.4-94.8) fl MCH 32.0 (25.6-32.2) pg MCHC 32.9 (32.2-35.5) g/dl RDW Std Deviation 44.6 (36.4-46.3) fL Plt Count 245 (182-369) K/mm3 MPV 11.0 (9.4-12.3) fl Neut % (Auto) 77.2 H (34.0-71.1) % Lymph % (Auto) 10.5 L (19.3-51.7) % [place] % (Auto) 11.9 (4.7-12.5) % Eos % (Auto) 0.1 L (0.7-5.8) Baso % (Auto) 0.0 L (0.1-1.2) % Neut # (Auto) 9.11 H (1.56-6.13) K/mm3 Lymph # (Auto) 1.24 (1.18-3.74) K/mm3 [place] # (Auto) 1.40 H (0.24-0.36) K/mm3 Eos # (Auto) 0.01 L (0.04-0.36) K/mm3 Baso # (Auto) 0.00 L (0.01-0.08) K/mm3 Sodium 140 (136-145) mEq/L Potassium 4.0 (3.5-5.1) mEq/L Chloride 105 (98-107) mEq/L Carbon Dioxide 27 (21-32) mEq/L Anion Gap 12.0 (5-15) BUN 26 H (7-18) mg/dL Creatinine 1.3 H (0.55-1.02) mg/dL Est Cr Clr Drug Dosing 24.11 mL/min Estimated GFR (MDRD) 39 (>60) mL/min BUN/Creatinine Ratio 20.0 H (14-18) Glucose 126 H (83-115) mg/dL Calcium 10.3 H (8.5-10.1) mg/dL Magnesium 2.0 (1.8-2.4) mg/dl Vitamin D 25-Hydroxy 69 (30-100) ng/mL Med Orders - Current: Current Medications Acetaminophen (Tylenol) 650 mg PO Q4H PRN PRN Reason: Pain (Mild 1-3)/fever Hydrocodone Bitart/Acetaminophen ([place] 325-5 Mg) 1 tab PO Q6H PRN PRN Reason: Pain (moderate 4-6) Last Admin: 12/01/17 05:56 Dose: 1 tab Albuterol/Ipratropium (Duoneb 3.0-0.5 Mg/3 Ml) 3 ml NEB Q4H PRN PRN Reason: Shortness Of Breath/wheezing Amlodipine Besylate (Norvasc) 5 mg PO DAILY [facility] Last Admin: 12/01/17 08:44 Dose: 5 mg Atenolol (Tenormin) 25 mg PO DAILY [facility] Last Admin: 12/01/17 08:45 Dose: 25 mg Bisacodyl (Dulcolax) 5 mg PO DAILY PRN PRN Reason: Constipation Calcium Carbonate/Glycine (Calcium Carbonate) 1,200 mg PO TID [facility] Last Admin: 12/01/17 08:44 Dose: 1,200 mg Docusate Sodium (Colace) 100 mg PO BID PRN PRN Reason: Constipation Ferrous Sulfate (Ferrous Sulfate) 325 mg PO BID [facility] Last Admin: 12/01/17 08:45 Dose: 325 mg Fish Oil (Fish Oil) 1 gm PO BID [facility] Last Admin: 12/01/17 08:44 Dose: 1 gm Hydralazine HCl (Apresoline) 10 mg IVPUSH Q4H PRN PRN Reason: Hypertension Last Admin: 11/30/17 20:38 Dose: 10 mg Hydromorphone HCl (Dilaudid) 0.5 mg IVPUSH Q4H PRN PRN Reason: pain Last Admin: 12/01/17 09:27 Dose: 0.5 mg Promethazine HCl 6.25 mg/ (Sodium Chloride) 50.25 mls @ 100 mls/hr IV Q6H PRN PRN Reason: Nausea/Vomiting Sodium Chloride (Normal Saline) 1,000 mls @ 75 mls/hr IV ASDIRECTED [facility] Levothyroxine Sodium (Levothyroxine) 125 mcg PO ACBRK [facility] Last Admin: 12/01/17 05:56 Dose: 125 mcg Lorazepam (Ativan) 2 mg IVPUSH Q4H PRN PRN Reason: Seizures Lorazepam (Ativan) 0.25 mg IV Q6H PRN PRN Reason: Anxiety Losartan Potassium (Cozaar) 50 mg PO DAILY [facility] Last Admin: 12/01/17 08:45 Dose: 50 mg Magnesium Hydroxide (Milk Of Magnesia) 30 ml PO BID PRN PRN Reason: Constipation Metoclopramide HCl (Reglan) 10 mg IVPUSH Q6H [facility] Last Admin: 12/01/17 05:55 Dose: 10 mg Metoprolol Tartrate (Lopressor) 5 mg IVPUSH Q4H PRN PRN Reason: Tachycardia Multivitamins (Thera) 1 each PO DAILY [facility] Last Admin: 12/01/17 08:44 Dose: 1 each Ondansetron HCl (Zofran) 4 mg IV Q6H PRN PRN Reason: Nausea/Vomiting Last Admin: 11/30/17 14:18 Dose: 4 mg Pantoprazole Sodium (Protonix) 40 mg PO DAILY [facility] Last Admin: 12/01/17 08:45 Dose: 40 mg Polyethylene Glycol (Miralax) 17 gm PO DAILY PRN PRN Reason: Constipation Senna/Docusate Sodium (Senna Plus) 1 tab PO BID PRN PRN Reason: Constipation Simvastatin (Zocor) 20 mg PO DAILY [facility] Last Admin: 12/01/17 08:45 Dose: 20 mg Sodium Chloride (Saline Flush) 10 ml FLUSH ASDIRECTED PRN PRN Reason: Keep Vein Open Last Admin: 11/29/17 21:36 Dose: 10 ml Discontinued Medications Hydrocodone Bitart/Acetaminophen ([place] 325-5 Mg) 1 tab PO Q4H PRN PRN Reason: Pain (moderate 4-6) Last Admin: 11/30/17 06:06 Dose: 1 tab Fentanyl (Sublimaze) 25 mcg IVPUSH ONETIME ONE Stop: 11/29/17 21:29 Last Admin: 11/29/17 21:33 Dose: 25 mcg Fentanyl (Sublimaze) 25 mcg IVPUSH ONETIME ONE Stop: 11/29/17 22:36 Last Admin: 11/29/17 22:39 Dose: 25 mcg Fentanyl (Sublimaze) 50 mcg IVPUSH ONETIME ONE Stop: 11/29/17 23:14 Last Admin: 11/29/17 23:21 Dose: 50 mcg Hydromorphone HCl (Dilaudid) 0.5 mg IVPUSH ONETIME ONE Stop: 11/30/17 00:18 Last Admin: 11/30/17 00:22 Dose: 0.5 mg Hydromorphone HCl (Dilaudid) 0.5 mg IVPUSH Q1H PRN PRN Reason: pain Last Admin: 11/30/17 10:32 Dose: 0.5 mg Hydromorphone HCl (Dilaudid) 0.5 mg IVPUSH Q2H PRN PRN Reason: Pain (severe 7-10) Magnesium Sulfate (Pharmacy To Dose - Magnesium Replacement) 1 dose .XX ASDIRECTED [facility] Non-Formulary Medication (Chondroitin/Glucosamine) 1 each PO DAILY [facility] Non-Formulary Medication (D-Mannose [Mannose]) 1 tab PO TID [facility] Potassium Chloride (Pharmacy To Dose - Potassium Replacement) 1 dose .XX ASDIRECTED TIFF - Exam Quality Assessment: Supplemental Oxygen General: Alert, Oriented, Cooperative, No Acute Distress HEENT: Pupils Equal, Pupils Reactive, EOMI, Mucous Membr. Moist/[place] Neck: Supple. No: Lymphadenopathy Lungs: Normal Respiratory Effort, Crackles (right lower lobe ), Other (No acute respiratory distress. ) Cardiovascular: Regular Rate, Regular Rhythm, Murmurs (systolic grade I/ ) GI/Abdominal Exam: Normal Bowel Sounds, Soft, Non-Tender, No Distention (Female) Exam: Deferred Back Exam: Normal Inspection, Full Range of Motion Extremities: Other (Right arm in sling. TTP. Pulses intact. ) Peripheral Pulses: 1+: Posterior Tibial (L), Posterior Tibial (R), Dorsalis Pedis (L), Dorsalis Pedis (R), 2+: Radial (L), Radial (R) Skin: Warm, Dry, Intact Neurological: No New Focal Deficit, Strength Equal Bilateral, Cranial Nerves Intact (grossly) Psy/Mental Status: Alert, Normal Affect, Normal Mood - Problem List Review Problem List Initiated/Reviewed/Updated: Yes - My Orders Last 24 Hours: My Active Orders 11/30/17 11:00 Metoclopramide [Reglan] 10 mg IVPUSH Q6H 12/01/17 10:56 Chest 2V [CR] Routine 12/01/17 11:00 Sodium Chloride 0.9% [Normal Saline] 1,000 ml IV ASDIRECTED - Plan Plan:: I/P: Acute: Right humerus fracture, nonoperative - Intractable pain in ED --> will adjust dilaudid order to dilaudid 0.5 mg q 4 hr prn pain; she will also receive [place] 325/5 1 tab po q 4 hr prn pain -she is reporting pain as 9/10 but is falling asleep during conversation and is not grimacing or writhing in bed -varying reports regarding her pain medications use at home; Pharmacy review revealed that patient does not have any active Rxs for controlled pain medications - Ortho to see prn - No known hx of osteoporosis --> vitamin D checked and is normal at 69 Oxygen desaturations - Likely 2/2 pain and pain medications - She does not use O2 at home - Patient denies hx of COPD or heart failure - Oxygen therapy and breathing treatments ordered --> will schedule duonebs QID - Will order CXR - Will order mycoplasma pneumoniae and viral panel - IS Hypertension - Elevated in ED likely 2/2 pain - She is on irbesartan at home --> will receive losartan during admit - Resume other home antihypertensive Hyperglycemia, improved - Glucose 126 today, 165 yesterday - No known hx of DM - Likely 2/2 stress response - Monitor Renal insufficiency - BUN 26, Cr 1.3, eGFR 39; yesterday BUN 28, Cr 1.1, and eGFR 47 today - Appears to be close to patient's baseline - Will order IVF NS at 75 ml/hr - Monitor Leukocytosis - Likely 2/2 pain and inflammation - She is afebrile - Monitor Weakness - Exacerbated by current injury and pain - Lives at [facility] - PT/OT recommending PT/OT rehab stay --> plan for D/C 12/05/[address] [facility] Nausea/Vomiting, improved - Likely 2/2 pain and pain medications - D.C Reglan and continue Zofran prn Chronic: CAD s/p GA and CABG CEA HLD HTN GERD IBS PUD with perforated ulcer in 2009 Urinary retention and incontinence Recurrent UTI --> will order UA and culture --> negative UA OA CVA Hypothyroidism Iron deficiency anemia Hx of MRSA --> contact precautions ordered Plan: Admitted from ED to Med/Surg with Tele Other orders as indicated above Increase activity CM/SW for discharge planning --> Will D/C to [facility] for PT/OT rehab stay on Routine AM labs Continue home meds Regular diet PT/OT DVT Prophylaxis: SCDs GI Prophylaxis: Continue home PPI Ambulate as tolerated Code Status: Full Code PCP: Dr. Lv Bowling
[2017-12-01] MEDS: Sodium Chloride 0.9% 1,000 ML IV SCH (12:30)
--- NOTE | 2017-12-01 12:51 | CR ---
Chest: Two views of the chest were obtained. Comparison: Prior chest x-ray of 07/08/16. Heart size appears slightly enlarged but accentuated from AP technique. Tortuous thoracic aorta is seen. Minimal left basilar atelectasis is noted. Lungs otherwise are clear. Bony structures appear within normal limits for the patient's age. Surgical clips are seen at the base of the neck. Previous sternotomy is noted. Impression: 1. Incidental findings as noted above. Nothing acute is appreciated. Diagnostic code #2
[2017-12-01] MEDS ORDERED: Albuterol/Ipratropium 3.0-0.5 MG/3 ML Neb Soln NEB SCH (13:00)
[2017-12-01] MEDS: Albuterol/Ipratropium 3.0-0.5 MG/3 ML Neb Soln NEB SCH ×2 (15:25→20:22)
[2017-12-01] MEDS: hydrALAZINE 20 MG/ML SDV IVPUSH PRN (21:01)
[2017-12-02] MEDS: Acetaminophen/HYDROcodone 325-5 MG Tab PO PRN ×3 (03:03→18:28)
[2017-12-02] MEDS: Levothyroxine 125 MCG Tab PO SCH (06:04)
[2017-12-02] MEDS: Sodium Chloride 0.9% 1,000 ML IV SCH ×2 (06:04→20:19)
[2017-12-02] MEDS: Albuterol/Ipratropium 3.0-0.5 MG/3 ML Neb Soln NEB SCH ×4 (06:22→21:05)
[2017-12-02] MEDS: Calcium Carbonate 600 MG Tab PO SCH ×3 (08:58→20:17)
[2017-12-02] MEDS: Fish Oil/Omega-3 Fatty Acids 1 Gm Cap PO SCH ×2 (09:00→20:17)
[2017-12-02] MEDS: Multivitamins,Therapeutic Tab PO SCH (09:00)
[2017-12-02] MEDS: Ferrous Sulfate 325 MG Tab PO SCH ×2 (09:01→20:17)
[2017-12-02] MEDS: Pantoprazole 40 MG Tab.CR PO SCH (09:01)
[2017-12-02] MEDS: Losartan 25 MG Tab PO SCH (09:02)
[2017-12-02] MEDS: amLODIPine 5 MG Tab PO SCH (09:08)
[2017-12-02] MEDS: Simvastatin 20 MG Tab PO SCH (09:08)
[2017-12-02] MEDS: Atenolol 25 MG Tab PO SCH (09:09)
--- NOTE | 2017-12-02 13:36 | PCM.PN ---
- General Info Date of Service: 12/02/17 Admission Dx/Problem (Free Text): Admission Diagnosis/Problem Admission Diagnosis/Problem Intractable pain Subjective Update: In to see Bessie today. She is laying in bed and appears comfortable. Saw patient walking with nursing earlier. She is no longer on supplemental O2. Patient appears more talkative today. She is still reporting pain 8/10 but she is not grimacing or writhing in pain. She does admit the pain is better. She was glad she went walking earlier. Denies any chest pain, dyspnea, GI, or complaints. She reports she had a BM this morning and no longer feels constipated. No concerns from nursing. Functional Status: Reports: Tolerating Diet, Ambulating, Urinating, Incentive Spirometry Pain Score: 8 - Review of Systems General: Reports: No Symptoms. Denies: Fever, Weakness HEENT: Reports: No Symptoms. Denies: Sinus Congestion, Sore Throat Pulmonary: Reports: No Symptoms. Denies: Shortness of Breath, Cough Cardiovascular: Reports: No Symptoms. Denies: Chest Pain, Palpitations, Edema Gastrointestinal: Reports: No Symptoms. Denies: Abdominal Pain, Constipation, Diarrhea, Nausea, Vomiting Genitourinary: Reports: No Symptoms. Denies: Dysuria, Frequency, Burning Musculoskeletal: Reports: No Symptoms, Shoulder Pain (Right humerus fracture ), Joint Pain Skin: Reports: No Symptoms. Denies: Cyanosis, Bruising Neurological: Reports: No Symptoms. Denies: Confusion, Dizziness, Numbness, Paresthesia Psychiatric: Reports: No Symptoms. Denies: Confusion, Depression, Anxiety - Patient Data Vitals - Most Recent: Last Vital Signs Temp 97.7 F 12/02/17 09:05 Pulse 78 12/02/17 09:09 Resp 19 12/02/17 09:05 BP 139/51 L 12/02/17 09:09 Pulse Ox 97 12/02/17 09:32 Weight - Most Recent: 163 lb 12.8 oz I&O - Last 24 Hours: Intake & Output 12/01/17 12/02/17 12/02/17 22:59 06:59 14:59 Intake Total 970 250 Output Total 300 500 Balance 670 -250 Lab Results Last 24 Hours: Laboratory Results - last 24 hr 12/02/17 12/02/17 Range/Units 05:52 05:57 WBC 10.82 H (3.98-10.04) K/mm3 RBC 3.19 L (3.98-5.22) M/mm3 Hgb 10.0 L (11.2-15.7) gm/L Hct 31.2 L (34.1-44.9) % MCV 97.8 H (79.4-94.8) fl MCH 31.3 (25.6-32.2) pg MCHC 32.1 L (32.2-35.5) g/dl RDW Std Deviation 46.0 (36.4-46.3) fL Plt Count 234 (182-369) K/mm3 MPV 11.3 (9.4-12.3) fl Neut % (Auto) 69.7 (34.0-71.1) % Lymph % (Auto) 14.5 L (19.3-51.7) % [place] % (Auto) 14.9 H (4.7-12.5) % Eos % (Auto) 0.6 L (0.7-5.8) Baso % (Auto) 0.1 (0.1-1.2) % Neut # (Auto) 7.54 H (1.56-6.13) K/mm3 Lymph # (Auto) 1.57 (1.18-3.74) K/mm3 [place] # (Auto) 1.61 H (0.24-0.36) K/mm3 Eos # (Auto) 0.07 (0.04-0.36) K/mm3 Baso # (Auto) 0.01 (0.01-0.08) K/mm3 Manual Slide Review Normal smear Sodium 141 (136-145) mEq/L Potassium 4.1 (3.5-5.1) mEq/L Chloride 106 (98-107) mEq/L Carbon Dioxide 26 (21-32) mEq/L Anion Gap 13.1 (5-15) BUN 23 H (7-18) mg/dL Creatinine 1.2 H (0.55-1.02) mg/dL Est Cr Clr Drug Dosing 26.12 mL/min Estimated GFR (MDRD) 42 (>60) mL/min BUN/Creatinine Ratio 19.2 H (14-18) Glucose 126 H (83-115) mg/dL Calcium 9.5 (8.5-10.1) mg/dL Magnesium 1.9 (1.8-2.4) mg/dl Aleks Results Last 24 Hours: Microbiology 11/30/17 07:15 Urine Culture - Final Urine, Clean Catch MIXED VAN SUGGESTIVE OF CONTAMINATION. Med Orders - Current: Current Medications Acetaminophen (Tylenol) 650 mg PO Q4H PRN PRN Reason: Pain (Mild 1-3)/fever Hydrocodone Bitart/Acetaminophen ([place] 325-5 Mg) 1 tab PO Q6H PRN PRN Reason: Pain (moderate 4-6) Last Admin: 12/02/17 09:48 Dose: 1 tab Albuterol/Ipratropium (Duoneb 3.0-0.5 Mg/3 Ml) 3 ml NEB Q4H PRN PRN Reason: Shortness Of Breath/wheezing Albuterol/Ipratropium (Duoneb 3.0-0.5 Mg/3 Ml) 3 ml NEB QIDRT [facility] Last Admin: 12/02/17 09:26 Dose: 3 ml Amlodipine Besylate (Norvasc) 5 mg PO DAILY [facility] Last Admin: 12/02/17 09:08 Dose: 5 mg Atenolol (Tenormin) 25 mg PO DAILY [facility] Last Admin: 12/02/17 09:09 Dose: 25 mg Bisacodyl (Dulcolax) 5 mg PO DAILY PRN PRN Reason: Constipation Calcium Carbonate/Glycine (Calcium Carbonate) 1,200 mg PO TID [facility] Last Admin: 12/02/17 08:58 Dose: 1,200 mg Docusate Sodium (Colace) 100 mg PO BID PRN PRN Reason: Constipation Ferrous Sulfate (Ferrous Sulfate) 325 mg PO BID [facility] Last Admin: 12/02/17 09:01 Dose: 325 mg Fish Oil (Fish Oil) 1 gm PO BID [facility] Last Admin: 12/02/17 09:00 Dose: 1 gm Hydralazine HCl (Apresoline) 10 mg IVPUSH Q4H PRN PRN Reason: Hypertension Last Admin: 12/01/17 21:01 Dose: 10 mg Hydromorphone HCl (Dilaudid) 0.5 mg IVPUSH Q4H PRN PRN Reason: pain Last Admin: 12/01/17 09:27 Dose: 0.5 mg Promethazine HCl 6.25 mg/ (Sodium Chloride) 50.25 mls @ 100 mls/hr IV Q6H PRN PRN Reason: Nausea/Vomiting Sodium Chloride (Normal Saline) 1,000 mls @ 75 mls/hr IV ASDIRECTED [facility] Last Admin: 12/02/17 06:04 Dose: 75 mls/hr Levothyroxine Sodium (Levothyroxine) 125 mcg PO ACBRK [facility] Last Admin: 12/02/17 06:04 Dose: 125 mcg Lorazepam (Ativan) 2 mg IVPUSH Q4H PRN PRN Reason: Seizures Lorazepam (Ativan) 0.25 mg IV Q6H PRN PRN Reason: Anxiety Losartan Potassium (Cozaar) 50 mg PO DAILY [facility] Last Admin: 12/02/17 09:02 Dose: 50 mg Magnesium Hydroxide (Milk Of Magnesia) 30 ml PO BID PRN PRN Reason: Constipation Last Admin: 12/02/17 02:59 Dose: 30 ml Metoprolol Tartrate (Lopressor) 5 mg IVPUSH Q4H PRN PRN Reason: Tachycardia Multivitamins (Thera) 1 each PO DAILY [facility] Last Admin: 12/02/17 09:00 Dose: 1 each Ondansetron HCl (Zofran) 4 mg IV Q6H PRN PRN Reason: Nausea/Vomiting Last Admin: 11/30/17 14:18 Dose: 4 mg Pantoprazole Sodium (Protonix) 40 mg PO DAILY [facility] Last Admin: 12/02/17 09:01 Dose: 40 mg Polyethylene Glycol (Miralax) 17 gm PO DAILY PRN PRN Reason: Constipation Senna/Docusate Sodium (Senna Plus) 1 tab PO BID PRN PRN Reason: Constipation Simvastatin (Zocor) 20 mg PO DAILY [facility] Last Admin: 12/02/17 09:08 Dose: 20 mg Sodium Chloride (Saline Flush) 10 ml FLUSH ASDIRECTED PRN PRN Reason: Keep Vein Open Last Admin: 11/29/17 21:36 Dose: 10 ml Discontinued Medications Hydrocodone Bitart/Acetaminophen ([place] 325-5 Mg) 1 tab PO Q4H PRN PRN Reason: Pain (moderate 4-6) Last Admin: 11/30/17 06:06 Dose: 1 tab Albuterol/Ipratropium (Duoneb 3.0-0.5 Mg/3 Ml) 3 ml NEB QID [facility] Fentanyl (Sublimaze) 25 mcg IVPUSH ONETIME ONE Stop: 11/29/17 21:29 Last Admin: 11/29/17 21:33 Dose: 25 mcg Fentanyl (Sublimaze) 25 mcg IVPUSH ONETIME ONE Stop: 11/29/17 22:36 Last Admin: 11/29/17 22:39 Dose: 25 mcg Fentanyl (Sublimaze) 50 mcg IVPUSH ONETIME ONE Stop: 11/29/17 23:14 Last Admin: 11/29/17 23:21 Dose: 50 mcg Hydromorphone HCl (Dilaudid) 0.5 mg IVPUSH ONETIME ONE Stop: 11/30/17 00:18 Last Admin: 11/30/17 00:22 Dose: 0.5 mg Hydromorphone HCl (Dilaudid) 0.5 mg IVPUSH Q1H PRN PRN Reason: pain Last Admin: 11/30/17 10:32 Dose: 0.5 mg Hydromorphone HCl (Dilaudid) 0.5 mg IVPUSH Q2H PRN PRN Reason: Pain (severe 7-10) Magnesium Sulfate (Pharmacy To Dose - Magnesium Replacement) 1 dose .XX ASDIRECTED [facility] Metoclopramide HCl (Reglan) 10 mg IVPUSH Q6H [facility] Last Admin: 12/01/17 11:59 Dose: Not Given Non-Formulary Medication (Chondroitin/Glucosamine) 1 each PO DAILY [facility] Non-Formulary Medication (D-Mannose [Mannose]) 1 tab PO TID [facility] Potassium Chloride (Pharmacy To Dose - Potassium Replacement) 1 dose .XX ASDIRECTED [facility] - Exam Quality Assessment: DVT Prophylaxis. No: Supplemental Oxygen General: Alert, Oriented, Cooperative, No Acute Distress HEENT: Pupils Equal, Pupils Reactive, EOMI, Mucous Membr. Moist/[place] Neck: Supple. No: Lymphadenopathy Lungs: Normal Respiratory Effort, Crackles (Right lower lobe, improved from yesterday ). No: Wheezing Cardiovascular: Regular Rate, Regular Rhythm, Murmurs (systolic grade I/ ) GI/Abdominal Exam: Normal Bowel Sounds, Soft, Non-Tender, No Distention (Female) Exam: Deferred Back Exam: Normal Inspection, Full Range of Motion Extremities: Other (Right shoulder sling in place. No numbness, tingling. Sensation intact. Pulses intact. ) Peripheral Pulses: 1+: Posterior Tibial (L), Posterior Tibial (R), Dorsalis Pedis (L), Dorsalis Pedis (R), 2+: Radial (L), Radial (R) Skin: Warm, Dry, Intact Neurological: No New Focal Deficit, Normal Gait, Strength Equal Bilateral, Cranial Nerves Intact (grossly) Psy/Mental Status: Alert, Normal Affect, Normal Mood - Problem List Review Problem List Initiated/Reviewed/Updated: Yes - My Orders Last 24 Hours: My Active Orders 12/01/17 12:58 RESPIRATORY PANEL BY PCR [MREF] Urgent 12/01/17 16:00 Albuterol/Ipratropium [DuoNeb 3.0-0.5 MG/3 ML] 3 ml NEB QIDRT - Plan Plan:: I/P: Acute: Right humerus fracture, nonoperative - Intractable pain in ED --> will adjust dilaudid order to dilaudid 0.5 mg q 4 hr prn pain; she will also receive [place] 325/5 1 tab po q 4 hr prn pain -she is reporting pain as 9/10 but is not grimacing or writhing in bed -varying reports regarding her pain medications use at home; Pharmacy review revealed that patient does not have any active Rxs for controlled pain medications - Ortho to see prn - No known hx of osteoporosis --> vitamin D checked and is normal at 69 Oxygen desaturations, improved - Likely 2/2 pain and pain medications --> she is now on room air - She does not use O2 at home - Patient denies hx of COPD or heart failure - Continue duonebs QID and oxygen therapy prn - CXR negative - Mycoplasma pneumoniae negative; viral panel pending - IS Hypertension, improved - Elevated in ED likely 2/2 pain - She is on irbesartan at home --> will receive losartan during admit - Resume other home antihypertensive Hyperglycemia, improved - Glucose 126 today, 165 yesterday - No known hx of DM - Likely 2/2 stress response - Monitor Leukocytosis - Likely 2/2 pain and inflammation - She is afebrile - Monitor Weakness - Exacerbated by current injury and pain - Lives at [facility] - Encouraged walks with staff - PT/OT recommending PT/OT rehab stay --> plan for D/C 12/05/[address] [facility] Renal insufficiency, stable - Appears to be close to patient's baseline - Will order IVF NS at 75 ml/hr - Monitor Resolved: Nausea/Vomiting - Likely 2/2 pain and pain medications - D.C Reglan and continue Zofran prn Chronic: CAD s/p [place] and CABG CEA HLD HTN GERD IBS PUD with perforated ulcer in 2009 Urinary retention and incontinence Recurrent UTI --> will order UA and culture --> negative UA OA CVA Hypothyroidism Iron deficiency anemia Hx of MRSA --> contact precautions ordered Plan: Admitted from ED to Med/Surg with Tele Other orders as indicated above Increase activity CM/SW for discharge planning --> Will D/C to [facility] for PT/OT rehab stay on Routine AM labs Continue home meds Regular diet PT/OT DVT Prophylaxis: SCDs GI Prophylaxis: Continue home PPI Ambulate as tolerated Code Status: Full Code PCP: Dr. Lv Bowling
[2017-12-02] MEDS: HYDROmorphone 0.5 MG/0.5 ML SYRINGE IVPUSH PRN (20:13)
[2017-12-03] MEDS: Acetaminophen/HYDROcodone 325-5 MG Tab PO PRN ×3 (01:34→20:02)
[2017-12-03] MEDS: Levothyroxine 125 MCG Tab PO SCH (06:36)
[2017-12-03] MEDS: Albuterol/Ipratropium 3.0-0.5 MG/3 ML Neb Soln NEB SCH ×4 (06:45→20:25)
[2017-12-03] MEDS: Simvastatin 20 MG Tab PO SCH (08:39)
[2017-12-03] MEDS: Losartan 25 MG Tab PO SCH (08:40)
[2017-12-03] MEDS: Atenolol 25 MG Tab PO SCH (08:41)
[2017-12-03] MEDS: amLODIPine 5 MG Tab PO SCH (08:41)
[2017-12-03] MEDS: Pantoprazole 40 MG Tab.CR PO SCH (08:44)
[2017-12-03] MEDS: Ferrous Sulfate 325 MG Tab PO SCH ×2 (08:45→20:01)
[2017-12-03] MEDS: Multivitamins,Therapeutic Tab PO SCH (08:46)
[2017-12-03] MEDS: Fish Oil/Omega-3 Fatty Acids 1 Gm Cap PO SCH ×2 (08:46→20:01)
[2017-12-03] MEDS: Calcium Carbonate 600 MG Tab PO SCH ×3 (08:47→20:01)
--- NOTE | 2017-12-03 11:55 | PCM.PN ---
- General Info Date of Service: 12/03/17 Subjective Update: Some complaint of shoulder pain, will provide prescribed pain med this am; reports last pain med was after midnight. Functional Status: Reports: Pain Controlled, Tolerating Diet, Ambulating, Urinating - Review of Systems General: Reports: No Symptoms HEENT: Reports: No Symptoms Pulmonary: Reports: No Symptoms Cardiovascular: Reports: No Symptoms Gastrointestinal: Reports: No Symptoms Genitourinary: Reports: No Symptoms Musculoskeletal: Reports: No Symptoms Skin: Reports: No Symptoms Neurological: Reports: No Symptoms Psychiatric: Reports: No Symptoms - Patient Data Vitals - Most Recent: Last Vital Signs Temp 36.9 C 12/03/17 08:23 Pulse 71 12/03/17 08:54 Resp 18 12/03/17 08:23 BP 147/80 H 12/03/17 08:54 Pulse Ox 93 L 12/03/17 08:54 Weight - Most Recent: 75.206 kg I&O - Last 24 Hours: Intake & Output 12/02/17 12/03/17 12/03/17 22:59 06:59 14:59 Intake Total 990 600 Output Total 700 650 Balance 290 -50 Lab Results Last 24 Hours: Laboratory Results - last 24 hr 12/03/17 12/03/17 Range/Units 06:20 06:20 WBC 8.25 (3.98-10.04) K/mm3 RBC 2.94 L (3.98-5.22) M/mm3 Hgb 9.3 L (11.2-15.7) gm/L Hct 28.7 L (34.1-44.9) % MCV 97.6 H (79.4-94.8) fl MCH 31.6 (25.6-32.2) pg MCHC 32.4 (32.2-35.5) g/dl RDW Std Deviation 44.7 (36.4-46.3) fL Plt Count 209 (182-369) K/mm3 MPV 11.0 (9.4-12.3) fl Neut % (Auto) 63.7 (34.0-71.1) % Lymph % (Auto) 17.7 L (19.3-51.7) % [place] % (Auto) 15.2 H (4.7-12.5) % Eos % (Auto) 3.2 (0.7-5.8) Baso % (Auto) 0.1 (0.1-1.2) % Neut # (Auto) 5.26 (1.56-6.13) K/mm3 Lymph # (Auto) 1.46 (1.18-3.74) K/mm3 [place] # (Auto) 1.25 H (0.24-0.36) K/mm3 Eos # (Auto) 0.26 (0.04-0.36) K/mm3 Baso # (Auto) 0.01 (0.01-0.08) K/mm3 Manual Slide Review Normal smear Sodium 142 (136-145) mEq/L Potassium 3.7 (3.5-5.1) mEq/L Chloride 108 H (98-107) mEq/L Carbon Dioxide 24 (21-32) mEq/L Anion Gap 13.7 (5-15) BUN 22 H (7-18) mg/dL Creatinine 1.0 (0.55-1.02) mg/dL Est Cr Clr Drug Dosing 31.35 mL/min Estimated GFR (MDRD) 52 (>60) mL/min BUN/Creatinine Ratio 22.0 H (14-18) Glucose 108 (83-115) mg/dL Calcium 8.6 (8.5-10.1) mg/dL Magnesium 1.9 (1.8-2.4) mg/dl Aleks Results Last 24 Hours: Microbiology 12/01/17 12:58 Respiratory Virus Panel (PCR) - Final Nasopharyngeal Swab 11/30/17 07:15 Urine Culture - Final Urine, Clean Catch MIXED VAN SUGGESTIVE OF CONTAMINATION. Med Orders - Current: Current Medications Acetaminophen (Tylenol) 650 mg PO Q4H PRN PRN Reason: Pain (Mild 1-3)/fever Hydrocodone Bitart/Acetaminophen ([place] 325-5 Mg) 1 tab PO Q6H PRN PRN Reason: Pain (moderate 4-6) Last Admin: 12/03/17 11:17 Dose: 1 tab Albuterol/Ipratropium (Duoneb 3.0-0.5 Mg/3 Ml) 3 ml NEB Q4H PRN PRN Reason: Shortness Of Breath/wheezing Albuterol/Ipratropium (Duoneb 3.0-0.5 Mg/3 Ml) 3 ml NEB QIDRT TIFF Last Admin: 12/03/17 09:19 Dose: 3 ml Amlodipine Besylate (Norvasc) 5 mg PO DAILY [facility] Last Admin: 12/03/17 08:41 Dose: 5 mg Atenolol (Tenormin) 25 mg PO DAILY [facility] Last Admin: 12/03/17 08:41 Dose: 25 mg Bisacodyl (Dulcolax) 5 mg PO DAILY PRN PRN Reason: Constipation Calcium Carbonate/Glycine (Calcium Carbonate) 1,200 mg PO TID [facility] Last Admin: 12/03/17 08:47 Dose: 1,200 mg Docusate Sodium (Colace) 100 mg PO BID PRN PRN Reason: Constipation Ferrous Sulfate (Ferrous Sulfate) 325 mg PO BID [facility] Last Admin: 12/03/17 08:45 Dose: 325 mg Fish Oil (Fish Oil) 1 gm PO BID [facility] Last Admin: 12/03/17 08:46 Dose: 1 gm Hydralazine HCl (Apresoline) 10 mg IVPUSH Q4H PRN PRN Reason: Hypertension Last Admin: 12/01/17 21:01 Dose: 10 mg Hydromorphone HCl (Dilaudid) 0.5 mg IVPUSH Q4H PRN PRN Reason: pain Last Admin: 12/02/17 20:13 Dose: 0.5 mg Promethazine HCl 6.25 mg/ (Sodium Chloride) 50.25 mls @ 100 mls/hr IV Q6H PRN PRN Reason: Nausea/Vomiting Sodium Chloride (Normal Saline) 1,000 mls @ 75 mls/hr IV ASDIRECTED [facility] Last Admin: 12/02/17 20:19 Dose: 75 mls/hr Levothyroxine Sodium (Levothyroxine) 125 mcg PO ACBRK [facility] Last Admin: 12/03/17 06:36 Dose: 125 mcg Lorazepam (Ativan) 2 mg IVPUSH Q4H PRN PRN Reason: Seizures Lorazepam (Ativan) 0.25 mg IV Q6H PRN PRN Reason: Anxiety Losartan Potassium (Cozaar) 50 mg PO DAILY [facility] Last Admin: 12/03/17 08:40 Dose: 50 mg Magnesium Hydroxide (Milk Of Magnesia) 30 ml PO BID PRN PRN Reason: Constipation Last Admin: 12/02/17 02:59 Dose: 30 ml Metoprolol Tartrate (Lopressor) 5 mg IVPUSH Q4H PRN PRN Reason: Tachycardia Multivitamins (Thera) 1 each PO DAILY [facility] Last Admin: 12/03/17 08:46 Dose: 1 each Ondansetron HCl (Zofran) 4 mg IV Q6H PRN PRN Reason: Nausea/Vomiting Last Admin: 11/30/17 14:18 Dose: 4 mg Pantoprazole Sodium (Protonix) 40 mg PO DAILY [facility] Last Admin: 12/03/17 08:44 Dose: 40 mg Polyethylene Glycol (Miralax) 17 gm PO DAILY PRN PRN Reason: Constipation Saccharomyces Boulardii (Florastor) 250 mg PO DAILY [facility] Senna/Docusate Sodium (Senna Plus) 1 tab PO BID PRN PRN Reason: Constipation Simvastatin (Zocor) 20 mg PO DAILY [facility] Last Admin: 12/03/17 08:39 Dose: 20 mg Sodium Chloride (Saline Flush) 10 ml FLUSH ASDIRECTED PRN PRN Reason: Keep Vein Open Last Admin: 11/29/17 21:36 Dose: 10 ml Discontinued Medications Hydrocodone Bitart/Acetaminophen ([place] 325-5 Mg) 1 tab PO Q4H PRN PRN Reason: Pain (moderate 4-6) Last Admin: 11/30/17 06:06 Dose: 1 tab Albuterol/Ipratropium (Duoneb 3.0-0.5 Mg/3 Ml) 3 ml NEB QID [facility] Fentanyl (Sublimaze) 25 mcg IVPUSH ONETIME ONE Stop: 11/29/17 21:29 Last Admin: 11/29/17 21:33 Dose: 25 mcg Fentanyl (Sublimaze) 25 mcg IVPUSH ONETIME ONE Stop: 11/29/17 22:36 Last Admin: 11/29/17 22:39 Dose: 25 mcg Fentanyl (Sublimaze) 50 mcg IVPUSH ONETIME ONE Stop: 11/29/17 23:14 Last Admin: 11/29/17 23:21 Dose: 50 mcg Hydromorphone HCl (Dilaudid) 0.5 mg IVPUSH ONETIME ONE Stop: 11/30/17 00:18 Last Admin: 11/30/17 00:22 Dose: 0.5 mg Hydromorphone HCl (Dilaudid) 0.5 mg IVPUSH Q1H PRN PRN Reason: pain Last Admin: 11/30/17 10:32 Dose: 0.5 mg Hydromorphone HCl (Dilaudid) 0.5 mg IVPUSH Q2H PRN PRN Reason: Pain (severe 7-10) Magnesium Sulfate (Pharmacy To Dose - Magnesium Replacement) 1 dose .XX ASDIRECTED [facility] Metoclopramide HCl (Reglan) 10 mg IVPUSH Q6H TIFF Last Admin: 12/01/17 11:59 Dose: Not Given Non-Formulary Medication (Chondroitin/Glucosamine) 1 each PO DAILY [facility] Non-Formulary Medication (D-Mannose [Mannose]) 1 tab PO TID [facility] Potassium Chloride (Pharmacy To Dose - Potassium Replacement) 1 dose .XX ASDIRECTED [facility] - Exam Quality Assessment: DVT Prophylaxis General: Alert, Oriented HEENT: Pupils Equal, Pupils Reactive, EOMI Neck: Trachea Midline, No JVD Lungs: Normal Respiratory Effort Cardiovascular: Regular Rate GI/Abdominal Exam: Normal Bowel Sounds, Soft, Non-Tender, No Organomegaly, No Distention (Female) Exam: Deferred Back Exam: Normal Inspection Extremities: Normal Inspection, Normal Capillary Refill, Arm Pain, Limited Range of Motion Skin: Warm Neurological: No New Focal Deficit Psy/Mental Status: Alert, Depressed - Problem List Review Problem List Initiated/Reviewed/Updated: Yes - Plan Plan:: I/P: Acute: Right humerus fracture, nonoperative - Intractable pain in ED --> will adjust dilaudid order to dilaudid 0.5 mg q 4 hr prn pain; she will also receive [place] 325/5 1 tab po q 4 hr prn pain -she is reporting pain as 9/10 but is not grimacing or writhing in bed -varying reports regarding her pain medications use at home; Pharmacy review revealed that patient does not have any active Rxs for controlled pain medications - Ortho to see prn - No known hx of osteoporosis --> vitamin D checked and is normal at 69 Oxygen desaturations, improved - Likely 2/2 pain and pain medications --> she is now on room air - She does not use O2 at home - Patient denies hx of COPD or heart failure - Continue duonebs QID and oxygen therapy prn - CXR negative - Mycoplasma pneumoniae negative; viral panel pending - IS Hypertension, improved - Elevated in ED likely 2/2 pain - She is on irbesartan at home --> will receive losartan during admit - Resume other home antihypertensive Hyperglycemia, improved - Glucose 126 today, 165 yesterday - No known hx of DM - Likely 2/2 stress response - Monitor Leukocytosis - Likely 2/2 pain and inflammation - She is afebrile - Monitor Weakness - Exacerbated by current injury and pain - Lives at [facility] - Encouraged walks with staff - PT/OT recommending PT/OT rehab stay --> plan for D/C 12/05/17 to [facility] Renal insufficiency, stable - Appears to be close to patient's baseline - Will order IVF NS at 75 ml/hr - Monitor Resolved: Nausea/Vomiting - Likely 2/2 pain and pain medications - D.C Reglan and continue Zofran prn Chronic: CAD 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 Lv Bowling LOS>96 hours, will be DCd on Tuesday, 12/05. Has required increased LOS for treatment and placement.
[2017-12-03] MEDS: Saccharomyces Boulardii (Probiotic) 250 MG Cap PO SCH (12:48)
[2017-12-03] MEDS: HYDROmorphone 0.5 MG/0.5 ML SYRINGE IVPUSH PRN ×2 (13:37→23:37)
[2017-12-04] MEDS: Acetaminophen/HYDROcodone 325-5 MG Tab PO PRN ×4 (02:23→20:50)
[2017-12-04] MEDS: Levothyroxine 125 MCG Tab PO SCH (06:24)
[2017-12-04] MEDS: Albuterol/Ipratropium 3.0-0.5 MG/3 ML Neb Soln NEB SCH ×4 (06:47→20:24)
[2017-12-04] MEDS: Saccharomyces Boulardii (Probiotic) 250 MG Cap PO SCH (08:13)
[2017-12-04] MEDS: Simvastatin 20 MG Tab PO SCH (08:13)
[2017-12-04] MEDS: Calcium Carbonate 600 MG Tab PO SCH ×3 (08:13→20:50)
[2017-12-04] MEDS: Multivitamins,Therapeutic Tab PO SCH (08:13)
[2017-12-04] MEDS: Fish Oil/Omega-3 Fatty Acids 1 Gm Cap PO SCH ×2 (08:13→20:50)
[2017-12-04] MEDS: Ferrous Sulfate 325 MG Tab PO SCH ×2 (08:14→20:49)
[2017-12-04] MEDS: Atenolol 25 MG Tab PO SCH (08:14)
[2017-12-04] MEDS: amLODIPine 5 MG Tab PO SCH (08:14)
[2017-12-04] MEDS: Pantoprazole 40 MG Tab.CR PO SCH (08:14)
[2017-12-04] MEDS: Losartan 25 MG Tab PO SCH (08:14)
--- NOTE | 2017-12-04 12:20 | PCM.PN ---
- General Info Date of Service: 12/04/17 Functional Status: Reports: Pain Controlled, Tolerating Diet, Ambulating, Urinating - Review of Systems General: Reports: No Symptoms HEENT: Reports: No Symptoms Pulmonary: Reports: No Symptoms Cardiovascular: Reports: No Symptoms Gastrointestinal: Reports: No Symptoms Genitourinary: Reports: No Symptoms Musculoskeletal: Reports: No Symptoms Skin: Reports: No Symptoms Neurological: Reports: No Symptoms Psychiatric: Reports: No Symptoms - Patient Data Vitals - Most Recent: Last Vital Signs Temp 36.9 C 12/04/17 07:57 Pulse 65 12/04/17 08:14 Resp 18 12/04/17 07:57 BP 136/64 12/04/17 08:14 Pulse Ox 90 L 12/04/17 07:57 Weight - Most Recent: 75.523 kg I&O - Last 24 Hours: Intake & Output 12/03/17 12/04/17 12/04/17 22:59 06:59 14:59 Intake Total 1020 700 Output Total 800 Balance 1020 -100 Lab Results Last 24 Hours: Laboratory Results - last 24 hr 12/04/17 12/04/17 Range/Units 06:34 06:34 WBC 7.82 (3.98-10.04) K/mm3 RBC 3.15 L (3.98-5.22) M/mm3 Hgb 9.7 L (11.2-15.7) gm/L Hct 30.7 L (34.1-44.9) % MCV 97.5 H (79.4-94.8) fl MCH 30.8 (25.6-32.2) pg MCHC 31.6 L (32.2-35.5) g/dl RDW Std Deviation 43.4 (36.4-46.3) fL Plt Count 230 (182-369) K/mm3 MPV 10.6 (9.4-12.3) fl Neut % (Auto) 53.5 (34.0-71.1) % Lymph % (Auto) 23.8 (19.3-51.7) % [place] % (Auto) 14.7 H (4.7-12.5) % Eos % (Auto) 7.3 H (0.7-5.8) Baso % (Auto) 0.4 (0.1-1.2) % Neut # (Auto) 4.19 (1.56-6.13) K/mm3 Lymph # (Auto) 1.86 (1.18-3.74) K/mm3 [place] # (Auto) 1.15 H (0.24-0.36) K/mm3 Eos # (Auto) 0.57 H (0.04-0.36) K/mm3 Baso # (Auto) 0.03 (0.01-0.08) K/mm3 Sodium 141 (136-145) mEq/L Potassium 3.6 (3.5-5.1) mEq/L Chloride 107 (98-107) mEq/L Carbon Dioxide 22 (21-32) mEq/L Anion Gap 15.6 H (5-15) BUN 22 H (7-18) mg/dL Creatinine 1.0 (0.55-1.02) mg/dL Est Cr Clr Drug Dosing 31.35 mL/min Estimated GFR (MDRD) 52 (>60) mL/min BUN/Creatinine Ratio 22.0 H (14-18) Glucose 101 (83-115) mg/dL Calcium 9.1 (8.5-10.1) mg/dL Magnesium 2.0 (1.8-2.4) mg/dl Med Orders - Current: Current Medications Acetaminophen (Tylenol) 650 mg PO Q4H PRN PRN Reason: Pain (Mild 1-3)/fever Hydrocodone Bitart/Acetaminophen ([place] 325-5 Mg) 1 tab PO Q6H PRN PRN Reason: Pain (moderate 4-6) Last Admin: 12/04/17 08:14 Dose: 1 tab Albuterol/Ipratropium (Duoneb 3.0-0.5 Mg/3 Ml) 3 ml NEB Q4H PRN PRN Reason: Shortness Of Breath/wheezing Albuterol/Ipratropium (Duoneb 3.0-0.5 Mg/3 Ml) 3 ml NEB QIDRT [facility] Last Admin: 12/04/17 09:35 Dose: 3 ml Amlodipine Besylate (Norvasc) 5 mg PO DAILY [facility] Last Admin: 12/04/17 08:14 Dose: 5 mg Atenolol (Tenormin) 25 mg PO DAILY [facility] Last Admin: 12/04/17 08:14 Dose: 25 mg Bisacodyl (Dulcolax) 5 mg PO DAILY PRN PRN Reason: Constipation Calcium Carbonate/Glycine (Calcium Carbonate) 1,200 mg PO TID [facility] Last Admin: 12/04/17 08:13 Dose: 1,200 mg Docusate Sodium (Colace) 100 mg PO BID PRN PRN Reason: Constipation Ferrous Sulfate (Ferrous Sulfate) 325 mg PO BID [facility] Last Admin: 12/04/17 08:14 Dose: 325 mg Fish Oil (Fish Oil) 1 gm PO BID [facility] Last Admin: 12/04/17 08:13 Dose: 1 gm Hydralazine HCl (Apresoline) 10 mg IVPUSH Q4H PRN PRN Reason: Hypertension Last Admin: 12/01/17 21:01 Dose: 10 mg Hydromorphone HCl (Dilaudid) 0.5 mg IVPUSH Q4H PRN PRN Reason: pain Last Admin: 12/03/17 23:37 Dose: 0.5 mg Promethazine HCl 6.25 mg/ (Sodium Chloride) 50.25 mls @ 100 mls/hr IV Q6H PRN PRN Reason: Nausea/Vomiting Levothyroxine Sodium (Levothyroxine) 125 mcg PO ACBRK [facility] Last Admin: 12/04/17 06:24 Dose: 125 mcg Lorazepam (Ativan) 2 mg IVPUSH Q4H PRN PRN Reason: Seizures Lorazepam (Ativan) 0.25 mg IV Q6H PRN PRN Reason: Anxiety Losartan Potassium (Cozaar) 50 mg PO DAILY [facility] Last Admin: 12/04/17 08:14 Dose: 50 mg Magnesium Hydroxide (Milk Of Magnesia) 30 ml PO BID PRN PRN Reason: Constipation Last Admin: 12/02/17 02:59 Dose: 30 ml Metoprolol Tartrate (Lopressor) 5 mg IVPUSH Q4H PRN PRN Reason: Tachycardia Multivitamins (Thera) 1 each PO DAILY [facility] Last Admin: 12/04/17 08:13 Dose: 1 each Ondansetron HCl (Zofran) 4 mg IV Q6H PRN PRN Reason: Nausea/Vomiting Last Admin: 11/30/17 14:18 Dose: 4 mg Pantoprazole Sodium (Protonix) 40 mg PO DAILY [facility] Last Admin: 12/04/17 08:14 Dose: 40 mg Polyethylene Glycol (Miralax) 17 gm PO DAILY PRN PRN Reason: Constipation Saccharomyces Boulardii (Florastor) 250 mg PO DAILY [facility] Last Admin: 12/04/17 08:13 Dose: 250 mg Senna/Docusate Sodium (Senna Plus) 1 tab PO BID PRN PRN Reason: Constipation Simvastatin (Zocor) 20 mg PO DAILY [facility] Last Admin: 12/04/17 08:13 Dose: 20 mg Sodium Chloride (Saline Flush) 10 ml FLUSH ASDIRECTED PRN PRN Reason: Keep Vein Open Last Admin: 11/29/17 21:36 Dose: 10 ml Discontinued Medications Hydrocodone Bitart/Acetaminophen ([place] 325-5 Mg) 1 tab PO Q4H PRN PRN Reason: Pain (moderate 4-6) Last Admin: 11/30/17 06:06 Dose: 1 tab Albuterol/Ipratropium (Duoneb 3.0-0.5 Mg/3 Ml) 3 ml NEB QID [facility] Fentanyl (Sublimaze) 25 mcg IVPUSH ONETIME ONE Stop: 11/29/17 21:29 Last Admin: 11/29/17 21:33 Dose: 25 mcg Fentanyl (Sublimaze) 25 mcg IVPUSH ONETIME ONE Stop: 11/29/17 22:36 Last Admin: 11/29/17 22:39 Dose: 25 mcg Fentanyl (Sublimaze) 50 mcg IVPUSH ONETIME ONE Stop: 11/29/17 23:14 Last Admin: 11/29/17 23:21 Dose: 50 mcg Hydromorphone HCl (Dilaudid) 0.5 mg IVPUSH ONETIME ONE Stop: 11/30/17 00:18 Last Admin: 11/30/17 00:22 Dose: 0.5 mg Hydromorphone HCl (Dilaudid) 0.5 mg IVPUSH Q1H PRN PRN Reason: pain Last Admin: 11/30/17 10:32 Dose: 0.5 mg Hydromorphone HCl (Dilaudid) 0.5 mg IVPUSH Q2H PRN PRN Reason: Pain (severe 7-10) Sodium Chloride (Normal Saline) 1,000 mls @ 75 mls/hr IV ASDIRECTED [facility] Last Admin: 12/02/17 20:19 Dose: 75 mls/hr Magnesium Sulfate (Pharmacy To Dose - Magnesium Replacement) 1 dose .XX ASDIRECTED [facility] Metoclopramide HCl (Reglan) 10 mg IVPUSH Q6H [facility] Last Admin: 12/01/17 11:59 Dose: Not Given Non-Formulary Medication (Chondroitin/Glucosamine) 1 each PO DAILY [facility] Non-Formulary Medication (D-Mannose [Mannose]) 1 tab PO TID [facility] Potassium Chloride (Pharmacy To Dose - Potassium Replacement) 1 dose .XX ASDIRECTED [facility] - Exam Quality Assessment: DVT Prophylaxis General: Alert, Oriented, Cooperative, No Acute Distress HEENT: Pupils Equal, Pupils Reactive, EOMI Neck: Trachea Midline, No JVD Lungs: Normal Respiratory Effort Cardiovascular: Regular Rate, Regular Rhythm GI/Abdominal Exam: Normal Bowel Sounds, Soft, Non-Tender, No Organomegaly, No Distention (Female) Exam: Deferred Back Exam: Normal Inspection Extremities: Normal Inspection, Non-Tender, Normal Capillary Refill Skin: Warm Neurological: No New Focal Deficit, Normal Speech Psy/Mental Status: Alert, Normal Affect, Normal Mood - Problem List Review Problem List Initiated/Reviewed/Updated: Yes - Plan Plan:: I/P: Acute: Right humerus fracture, nonoperative - Intractable pain in ED --> will adjust dilaudid order to dilaudid 0.5 mg q 4 hr prn pain; she will also receive [place] 325/5 1 tab po q 4 hr prn pain -she is reporting pain as 9/10 but is not grimacing or writhing in bed -varying reports regarding her pain medications use at home; Pharmacy review revealed that patient does not have any active Rxs for controlled pain medications - Ortho to see prn - No known hx of osteoporosis --> vitamin D checked and is normal at 69 Oxygen desaturations, improved - Likely 2/2 pain and pain medications --> she is now on room air - She does not use O2 at home - Patient denies hx of COPD or heart failure - Continue duonebs QID and oxygen therapy prn - CXR negative - Mycoplasma pneumoniae negative; viral panel pending - IS Hypertension, improved - Elevated in ED likely 2/2 pain - She is on irbesartan at home --> will receive losartan during admit - Resume other home antihypertensive Hyperglycemia, improved - Glucose 126 today, 165 yesterday - No known hx of DM - Likely 2/2 stress response - Monitor Leukocytosis - Likely 2/2 pain and inflammation - She is afebrile - Monitor Weakness - Exacerbated by current injury and pain - Lives at [facility] - Encouraged walks with staff - PT/OT recommending PT/OT rehab stay --> plan for D/C 12/05/17 to [facility] Renal insufficiency, stable - Appears to be close to patient's baseline - Will order IVF NS at 75 ml/hr - Monitor Resolved: Nausea/Vomiting - Likely 2/2 pain and pain medications - D.C Reglan and continue Zofran prn Chronic: CAD s/p [place] and CABG CEA HLD HTN GERD IBS PUD with perforated ulcer in 2009 Urinary retention and incontinence Recurrent UTI --> will order UA and culture --> negative UA OA CVA Hypothyroidism Iron deficiency anemia Hx of MRSA --> contact precautions ordered Plan: Admitted from ED to Med/Surg with Tele Other orders as indicated above Increase activity CM/SW for discharge planning --> Will D/C to [facility] for PT/OT rehab stay on Routine AM labs Continue home meds Regular diet PT/OT DVT Prophylaxis: SCDs GI Prophylaxis: Continue home PPI Ambulate as tolerated Code Status: Full Code PCP: Dr. Lv Bowling LOS>96 hours, will be DCd on Tuesday, 12/05. Has required increased LOS for treatment and placement.
[2017-12-04] MEDS: HYDROmorphone 0.5 MG/0.5 ML SYRINGE IVPUSH PRN (12:30)
[2017-12-04] MEDS: Gabapentin 100 MG Cap PO SCH ×2 (15:06→20:50)
[2017-12-05] MEDS: Acetaminophen/HYDROcodone 325-5 MG Tab PO PRN ×2 (04:09→10:09)
[2017-12-05] MEDS: Albuterol/Ipratropium 3.0-0.5 MG/3 ML Neb Soln NEB SCH ×2 (06:08→09:06)
[2017-12-05] MEDS: Levothyroxine 125 MCG Tab PO SCH (06:28)
--- NOTE | 2017-12-05 06:59 | PCM.DCSUM1 ---
Discharge Summary - Hospital Course HPI Initial Comments: This is an 87 y/o female with PMHx significant for CAD s/p TN and CABG, CEA, HLD , HTN, GERD, IBS, PUD with perforated ulcer in 2009, urinary retention and incontinence, recurrent UTI, OA, CVA, hypothyroidism, iron deficiency anemia, and hx of MRSA who comes in for right shoulder injury. She was admitted from the ED. Patient reports shoulder pain, hip pain (chronic). She denies chest pain , headache, or any GI/ complaints. X-ray ordered in ED read as follows: humeral neck fracture is present which extends into the humeral head; fracture is impacted and angulated; no glenohumeral dislocation and the acromioclavicular joint anatomic. She is a nonoperative patient. ED placed shoulder immobilizer. Patient received Fentanyl and Diluadid in ED. She is also on NC 2L presently. EKG performed inpatient shows NSR. She was admitted for intractable pain. Patient is a resident of [facility]. She reports that she was using her walker and tripped and landed on her right shoulder. Denies LOC or hitting her head during the fall. She states that she does not normally use oxygen at home. She is subsequently admitted to the Med/Surg with Tele. She is a never smoker. She is a full code. PCP is Dr. Lv Bowlnig. Diagnosis: Stroke: No - Discharge Data Discharge Date: 12/05/17 (Admit Date: 11/30/17) Discharge Disposition: DC/Tfer to SNF 03 Condition: Good - Patient Summary/Data Consults: Consultations 11/30/17 01:21 OT Evaluation and Treatment [CONS] Routine PT Evaluation and Treatment [CONS] Routine 11/30/17 05:11 Consult to Case Management [CONS] Routine Consult to Tobacco Flavorer [CONS] Routine Consult to Spiritual Care [CONS] Routine Labs Pending at D/C: None Recommended Follow-up Testing/Procedures: Follow-up with PCP within 7-10 days of discharge Follow-up with [place]/Dr. Ingram within 2 weeks. Hospital Course: I/P: Acute: Right humerus fracture, nonoperative - Intractable pain in ED --> will adjust dilaudid order to dilaudid 0.5 mg q 4 hr prn pain-->stop - [place] 325/5 1 tab po q 4 hr prn pain - she is reporting pain as 9/10 but is not grimacing or writhing in bed - varying reports regarding her pain medications use at home -Pharmacy review revealed that patient does not have any active Rxs for controlled pain medications - Ortho to see prn - No known hx of osteoporosis --> vitamin D checked and is normal at 69 - Gabapentin 200mg TID for pain with good response Oxygen desaturations, improved - Likely 2/2 pain and pain medications --> she has been bouncing between room air and 1L oxygen. - She does not use O2 at home - Patient denies hx of COPD or heart failure - Continue duonebs QID --> stop - oxygen therapy prn - CXR negative - Mycoplasma pneumoniae negative; viral panel negative - IS/RT Hypertension, improved - Elevated in ED likely 2/2 pain - She is on irbesartan at home --> will receive losartan during admit - Resume other home antihypertensive Weakness - Exacerbated by current injury and pain - Lives at [facility] - Encouraged walks with staff - PT/OT recommending PT/OT rehab stay --> plan for D/C 12/05/17 to [facility] Renal insufficiency, stable - Appears to be close to patient's baseline - Will order IVF NS at 75 ml/hr - Monitor Resolved: Nausea/Vomiting - Likely 2/2 pain and pain medications - D.C Reglan and continue Zofran prn Leukocytosis - Likely 2/2 pain and inflammation - She is afebrile - Monitor Hyperglycemia, improved - Glucose 126 today, 165 -->101 today - No known hx of DM - Likely 2/2 stress response - Monitor Chronic: CAD s/p TN and CABG CEA HLD HTN GERD IBS PUD with perforated ulcer in 2009 Urinary retention and incontinence Recurrent UTI --> will order UA and culture --> negative UA OA CVA Hypothyroidism Iron deficiency anemia Hx of MRSA --> contact precautions ordered Plan: Admitted from ED to Med/Surg with Tele Other orders as indicated above Increase activity CM/SW for discharge planning --> Will D/C to [facility] for PT/OT rehab stay on Routine AM labs Continue home meds Regular diet PT/OT DVT Prophylaxis: SCDs GI Prophylaxis: Continue home PPI Ambulate as tolerated Code Status: Full Code PCP: Dr. Lv Bowling LOS>96 hours, will be DCd on Tuesday, 12/05. Has required increased LOS for treatment and placement. Overall Bessie did quite well. She continued to complain of shoulder pain, rating it at 9/10, however she did not appear to be uncomfortable. Gabapentin TID was started and she did have good control with this. She will be discharged on it. She will also be given [place] 325/5mg Q6Hr PRN for pain as well. She was continued on a probiotic. Dr. Ingram reportedly saw her X-ray in the ED and stated the fracture was non-surgical. She should follow up with his office within 14 days of discharge - preferably next week. She should also see her PCP with 7-10 days. She has a sling in place and will be discharged today to [facility] for a rehab stay. - Patient Instructions Diet: Usual Diet as Tolerated Activity: As Tolerated Driving: Do Not Drive Showering/Bathing: May Shower Notify Provider of: Fever, Increased Pain, Nausea and/or Vomiting - Discharge Plan Prescriptions/Med Rec: Acetaminophen/HYDROcodone [[place] 325-5 MG] 1 tab PO Q6H PRN #20 tablet PRN Reason: Pain (Moderate 4-6) Gabapentin [Neurontin] 200 mg PO TID #30 capsule Saccharomyces Boulardii [Florastor] 250 mg PO DAILY #20 cap Home Medications: Home Meds Atenolol 25 mg PO DAILY 03/08/14 [History] Calcium Carbonate [Calcium] 1,200 mg PO TID 03/08/14 [History] Glucosamine/Chondroitin Sulf A [Glucosamine Chondroitin Cap] 1 each PO DAILY [History] Irbesartan [Avapro] 150 mg PO DAILY 03/08/14 [History] Levothyroxine Sodium [Synthroid] 125 mcg PO DAILY 03/08/14 [History] Simvastatin [Zocor] 20 mg PO DAILY 03/08/14 [History] amLODIPine [Norvasc] 5 mg PO DAILY 03/08/14 [History] Pantoprazole [ProTONIX] 40 mg PO BID 04/04/15 [History] Aspirin [Ecotrin] 81 mg PO Q48H 04/07/15 [History] D-Mannose [Mannose] 1 tab PO BID 12/24/16 [History] Multivit-Min/FA/Lycopene/Lut [Centrum Silver Tablet] 1 each PO DAILY 12/24/16 [ History] Aspirin [Ecotrin] 162 mg PO Q48H 12/28/16 [History] [place]-3/DHA/Epa/Fish Oil [Fish Oil 500 MG Softgel] 1 tab PO BID 12/28/16 [ History] Ferrous Sulfate [Iron] 27 mg PO BID 11/29/17 [History] Acetaminophen/Codeine [Tylenol with Codeine No.3 300MG/30MG] 1 - 2 tab PO Q6H PRN 11/30/17 [History] Acetaminophen/HYDROcodone [[place] 325-5 MG] 1 tab PO Q6H PRN #20 tablet 12/05/17 [Rx] Gabapentin [Neurontin] 200 mg PO TID #30 capsule 12/05/17 [Rx] Saccharomyces Boulardii [Florastor] 250 mg PO DAILY #20 cap 12/05/17 [Rx] Forms: ED Department Discharge Referrals: Lv Rceio MD [Primary Care Provider] - (Ask your doctor about if you need a TDaP vaccine.) - Discharge Summary/Plan Comment DC Time >30 min.: Yes (45 mins ) - General Info Date of Service: 12/05/17 Admission Dx/Problem (Free Text: Admission Diagnosis/Problem Admission Diagnosis/Problem Intractable pain Functional Status: Reports: Pain Controlled, Tolerating Diet, Ambulating, Urinating. Denies: New Symptoms - Review of Systems General: Reports: Weakness (improving ). Denies: Fever, Fatigue, Malaise HEENT: Reports: No Symptoms. Denies: Eye Pain, Sinus Congestion, Sore Throat Pulmonary: Reports: No Symptoms. Denies: Shortness of Breath, Pleuritic Chest Pain, Cough, Sputum Cardiovascular: Reports: No Symptoms. Denies: Chest Pain, Palpitations, Dyspnea on Exertion, Edema Gastrointestinal: Reports: No Symptoms. Denies: Abdominal Pain, Constipation, Diarrhea, Nausea, Vomiting Genitourinary: Reports: No Symptoms Musculoskeletal: Reports: Shoulder Pain (right ), Arm Pain (right ) Skin: Reports: No Symptoms Neurological: Reports: No Symptoms Psychiatric: Reports: No Symptoms - Patient Data Vitals - Most Recent: Last Vital Signs Temp 97.9 F 06/18/18 04:12 Pulse 72 12/05/17 04:12 Resp 14 12/05/17 04:12 BP 147/51 H 12/05/17 00:15 Pulse Ox 91 L 12/05/17 06:09 Weight - Most Recent: 166 lb 11.2 oz I&O - Last 24 hours: Intake & Output 12/04/17 12/04/17 12/05/17 14:59 22:59 06:59 Intake Total 240 870 200 Balance 240 870 200 Lab Results - Last 24 hrs: Laboratory Results - last 24 hr 12/04/17 12/04/17 Range/Units 06:34 06:34 WBC 7.82 (3.98-10.04) K/mm3 RBC 3.15 L (3.98-5.22) M/mm3 Hgb 9.7 L (11.2-15.7) gm/L Hct 30.7 L (34.1-44.9) % MCV 97.5 H (79.4-94.8) fl MCH 30.8 (25.6-32.2) pg MCHC 31.6 L (32.2-35.5) g/dl RDW Std Deviation 43.4 (36.4-46.3) fL Plt Count 230 (182-369) K/mm3 MPV 10.6 (9.4-12.3) fl Neut % (Auto) 53.5 (34.0-71.1) % Lymph % (Auto) 23.8 (19.3-51.7) % [place] % (Auto) 14.7 H (4.7-12.5) % Eos % (Auto) 7.3 H (0.7-5.8) Baso % (Auto) 0.4 (0.1-1.2) % Neut # (Auto) 4.19 (1.56-6.13) K/mm3 Lymph # (Auto) 1.86 (1.18-3.74) K/mm3 [place] # (Auto) 1.15 H (0.24-0.36) K/mm3 Eos # (Auto) 0.57 H (0.04-0.36) K/mm3 Baso # (Auto) 0.03 (0.01-0.08) K/mm3 Sodium 141 (136-145) mEq/L Potassium 3.6 (3.5-5.1) mEq/L Chloride 107 (98-107) mEq/L Carbon Dioxide 22 (21-32) mEq/L Anion Gap 15.6 H (5-15) BUN 22 H (7-18) mg/dL Creatinine 1.0 (0.55-1.02) mg/dL Est Cr Clr Drug Dosing 31.35 mL/min Estimated GFR (MDRD) 52 (>60) mL/min BUN/Creatinine Ratio 22.0 H (14-18) Glucose 101 (83-115) mg/dL Calcium 9.1 (8.5-10.1) mg/dL Magnesium 2.0 (1.8-2.4) mg/dl Med Orders - Current: Current Medications Acetaminophen (Tylenol) 650 mg PO Q4H PRN PRN Reason: Pain (Mild 1-3)/fever Hydrocodone Bitart/Acetaminophen ([place] 325-5 Mg) 1 tab PO Q6H PRN PRN Reason: Pain (moderate 4-6) Last Admin: 12/05/17 04:09 Dose: 1 tab Albuterol/Ipratropium (Duoneb 3.0-0.5 Mg/3 Ml) 3 ml NEB Q4H PRN PRN Reason: Shortness Of Breath/wheezing Albuterol/Ipratropium (Duoneb 3.0-0.5 Mg/3 Ml) 3 ml NEB QIDRT [facility] Last Admin: 12/05/17 06:08 Dose: 3 ml Amlodipine Besylate (Norvasc) 5 mg PO DAILY [facility] Last Admin: 12/04/17 08:14 Dose: 5 mg Atenolol (Tenormin) 25 mg PO DAILY [facility] Last Admin: 12/04/17 08:14 Dose: 25 mg Bisacodyl (Dulcolax) 5 mg PO DAILY PRN PRN Reason: Constipation Calcium Carbonate/Glycine (Calcium Carbonate) 1,200 mg PO TID [facility] Last Admin: 12/04/17 20:50 Dose: 1,200 mg Docusate Sodium (Colace) 100 mg PO BID PRN PRN Reason: Constipation Ferrous Sulfate (Ferrous Sulfate) 325 mg PO BID [facility] Last Admin: 12/04/17 20:49 Dose: 325 mg Fish Oil (Fish Oil) 1 gm PO BID [facility] Last Admin: 12/04/17 20:50 Dose: 1 gm Gabapentin (Neurontin) 200 mg PO TID [facility] Last Admin: 12/04/17 20:50 Dose: 200 mg Hydralazine HCl (Apresoline) 10 mg IVPUSH Q4H PRN PRN Reason: Hypertension Last Admin: 12/01/17 21:01 Dose: 10 mg Hydromorphone HCl (Dilaudid) 0.5 mg IVPUSH Q4H PRN PRN Reason: pain Last Admin: 12/04/17 12:30 Dose: 0.5 mg Promethazine HCl 6.25 mg/ (Sodium Chloride) 50.25 mls @ 100 mls/hr IV Q6H PRN PRN Reason: Nausea/Vomiting Levothyroxine Sodium (Levothyroxine) 125 mcg PO ACBRK [facility] Last Admin: 12/05/17 06:28 Dose: 125 mcg Lorazepam (Ativan) 2 mg IVPUSH Q4H PRN PRN Reason: Seizures Lorazepam (Ativan) 0.25 mg IV Q6H PRN PRN Reason: Anxiety Losartan Potassium (Cozaar) 50 mg PO DAILY [facility] Last Admin: 12/04/17 08:14 Dose: 50 mg Magnesium Hydroxide (Milk Of Magnesia) 30 ml PO BID PRN PRN Reason: Constipation Last Admin: 12/02/17 02:59 Dose: 30 ml Metoprolol Tartrate (Lopressor) 5 mg IVPUSH Q4H PRN PRN Reason: Tachycardia Multivitamins (Thera) 1 each PO DAILY [facility] Last Admin: 12/04/17 08:13 Dose: 1 each Ondansetron HCl (Zofran) 4 mg IV Q6H PRN PRN Reason: Nausea/Vomiting Last Admin: 11/30/17 14:18 Dose: 4 mg Pantoprazole Sodium (Protonix) 40 mg PO DAILY [facility] Last Admin: 12/04/17 08:14 Dose: 40 mg Polyethylene Glycol (Miralax) 17 gm PO DAILY PRN PRN Reason: Constipation Saccharomyces Boulardii (Florastor) 250 mg PO DAILY [facility] Last Admin: 12/04/17 08:13 Dose: 250 mg Senna/Docusate Sodium (Senna Plus) 1 tab PO BID PRN PRN Reason: Constipation Simvastatin (Zocor) 20 mg PO DAILY [facility] Last Admin: 12/04/17 08:13 Dose: 20 mg Sodium Chloride (Saline Flush) 10 ml FLUSH ASDIRECTED PRN PRN Reason: Keep Vein Open Last Admin: 11/29/17 21:36 Dose: 10 ml Discontinued Medications Hydrocodone Bitart/Acetaminophen ([place] 325-5 Mg) 1 tab PO Q4H PRN PRN Reason: Pain (moderate 4-6) Last Admin: 11/30/17 06:06 Dose: 1 tab Albuterol/Ipratropium (Duoneb 3.0-0.5 Mg/3 Ml) 3 ml NEB QID [facility] Fentanyl (Sublimaze) 25 mcg IVPUSH ONETIME ONE Stop: 11/29/17 21:29 Last Admin: 11/29/17 21:33 Dose: 25 mcg Fentanyl (Sublimaze) 25 mcg IVPUSH ONETIME ONE Stop: 11/29/17 22:36 Last Admin: 11/29/17 22:39 Dose: 25 mcg Fentanyl (Sublimaze) 50 mcg IVPUSH ONETIME ONE Stop: 11/29/17 23:14 Last Admin: 11/29/17 23:21 Dose: 50 mcg Hydromorphone HCl (Dilaudid) 0.5 mg IVPUSH ONETIME ONE Stop: 11/30/17 00:18 Last Admin: 11/30/17 00:22 Dose: 0.5 mg Hydromorphone HCl (Dilaudid) 0.5 mg IVPUSH Q1H PRN PRN Reason: pain Last Admin: 11/30/17 10:32 Dose: 0.5 mg Hydromorphone HCl (Dilaudid) 0.5 mg IVPUSH Q2H PRN PRN Reason: Pain (severe 7-10) Sodium Chloride (Normal Saline) 1,000 mls @ 75 mls/hr IV ASDIRECTED [facility] Last Admin: 12/02/17 20:19 Dose: 75 mls/hr Magnesium Sulfate (Pharmacy To Dose - Magnesium Replacement) 1 dose .XX ASDIRECTED [facility] Metoclopramide HCl (Reglan) 10 mg IVPUSH Q6H [facility] Last Admin: 12/01/17 11:59 Dose: Not Given Non-Formulary Medication (Chondroitin/Glucosamine) 1 each PO DAILY [facility] Non-Formulary Medication (D-Mannose [Mannose]) 1 tab PO TID [facility] Potassium Chloride (Pharmacy To Dose - Potassium Replacement) 1 dose .XX ASDIRECTED TIFF - Exam Quality Assessment: Reports: Supplemental Oxygen (1L), DVT Prophylaxis General: Reports: Alert, Oriented, Cooperative, No Acute Distress HEENT: Reports: Pupils Equal, Pupils Reactive, EOMI, Mucous Membr. Moist/[place] Neck: Reports: Supple, Trachea Midline, No JVD Lungs: Reports: Clear to Auscultation, Normal Respiratory Effort Cardiovascular: Reports: Regular Rate, Regular Rhythm GI/Abdominal Exam: Normal Bowel Sounds, Soft, Non-Tender, No Organomegaly, No Distention, No Abnormal Bruit, No Mass, Pelvis Stable (Female) Exam: Deferred Rectal (Female) Exam: Deferred Back Exam: Reports: Normal Inspection, Decreased Range of Motion Extremities: Normal Inspection, No Pedal Edema, Normal Capillary Refill, Arm Pain, Limited Range of Motion, Other (Sling in place on right arm) Skin: Reports: Warm, Dry, Intact Neurological: Reports: No New Focal Deficit Psy/Mental Status: Reports: Alert, Normal Affect, Normal Mood
[2017-12-05 08:27] VITALS: BP 120/80
[2017-12-05] MEDS: Fish Oil/Omega-3 Fatty Acids 1 Gm Cap PO SCH (08:37)
[2017-12-05] MEDS: Simvastatin 20 MG Tab PO SCH (08:37)
[2017-12-05] MEDS: amLODIPine 5 MG Tab PO SCH (08:37)
[2017-12-05] MEDS: Multivitamins,Therapeutic Tab PO SCH (08:37)
[2017-12-05] MEDS: Atenolol 25 MG Tab PO SCH (08:37)
[2017-12-05] MEDS: Gabapentin 100 MG Cap PO SCH (08:37)
[2017-12-05] MEDS: Saccharomyces Boulardii (Probiotic) 250 MG Cap PO SCH (08:37)
[2017-12-05] MEDS: Losartan 25 MG Tab PO SCH (08:38)
[2017-12-05] MEDS: Pantoprazole 40 MG Tab.CR PO SCH (08:38)
[2017-12-05] MEDS: Calcium Carbonate 600 MG Tab PO SCH (08:38)
[2017-12-05] MEDS: Ferrous Sulfate 325 MG Tab PO SCH (08:38)
== END 2017-12-05 10:42 | DRG 948 ==
LOC: JD.ED 21:14 → JD.MS 11-30 00:47
PROVIDERS: ADMIT Internal Medicine; ATTEND Internal Medicine
DX: S42.201A Unspecified fracture of upper end of right humerus, initial encounter for closed fracture (principal); G89.11 Acute pain due to trauma; S42.291A Other displaced fracture of upper end of right humerus, initial encounter for closed fracture; M16.11 Unilateral primary osteoarthritis, right hip; W01.0XXA Fall on same level from slipping, tripping and stumbling without subsequent striking against object, initial encounter; I25.10 Atherosclerotic heart disease of native coronary artery without angina pectoris; I10 Essential (primary) hypertension; Z95.1 Presence of aortocoronary bypass graft; I25.2 Old myocardial infarction; Z86.73 Personal history of transient ischemic attack (TIA), and cerebral infarction without residual deficits; K21.9 Gastro-esophageal reflux disease without esophagitis; E03.9 Hypothyroidism, unspecified; Z96.652 Presence of left artificial knee joint; D50.9 Iron deficiency anemia, unspecified; R73.9 Hyperglycemia, unspecified; N28.9 Disorder of kidney and ureter, unspecified; E78.5 Hyperlipidemia, unspecified; R53.1 Weakness; D72.829 Elevated white blood cell count, unspecified; R11.2 Nausea with vomiting, unspecified; G89.29 Other chronic pain; M19.90 Unspecified osteoarthritis, unspecified site; M25.551 Pain in right hip; Z87.440 Personal history of urinary (tract) infections; Z88.1 Allergy status to other antibiotic agents; Z88.2 Allergy status to sulfonamides; Z79.82 Long term (current) use of aspirin; Z79.899 Other long term (current) drug therapy
CPT/HCPCS: 73030; 96374; 96375; 96376; 99285; J1170; J3010 ×3; J7050; 36415; 71046; 71046-26; 80048; 81001; 82306; 83735; 84439; 84443; 85025; 86738; 87086; 87486; 87581; 87633; 87798; 93005; 94640; 94761; 97110-GO; 97116-GP; 97162-GP; 97165-GO; 97530-GO; 97530-GP; 99284; A9270-GY; J0360; J2405; J2765; J7040